=== PATIENT | female | born 1940 | race Caucasian/White ===

== ENCOUNTER → 2016-12-14 | Outpatient (CLI) | payer MEDICARE ==
[2016-12-14 08:23] LABS: Appearance,Urine Clear (Clear); Bilirubin,Urine Negative (Negative); Glucose,Urine (UA) Negative (Negative); Ketones,Urine Negative (Negative); Leukocyte Esterase,Urine Moderate (Negative); Mucus,Urine Rare /hpf; Nitrite,Urine Negative (Negative); PH, Urine 5.5 (5.0-8.0); Particle Count 4771; Protein,Urine 1+ (Negative); RBC,Urine 1 /hpf (0-5); Specific Gravity,Urine 1.016 (1.001-1.035); Squamous Epithelial Cell,Urine 2 /hpf (0-4); UA Billing (MACRO vs. MICRO) MICRO; Urobilinogen,Urine <2.0 mg/dL (<2.0); WBC,Urine 5 /hpf (0-5)
[2016-12-14 08:46] LABS: Basophils # (A) 0.1 k/uL (0-0.2); Basophils % (A) 2 %; CH 32.1; CHCM 32.6; Eosinophils # (A) 0.4 k/uL (0-0.7); Eosinophils % (A) 10 %; HDW 3.18; HGB 11.6 gm/dL (11.4-16.0); Luc % (Auto) 3; Lymphocytes # (A) 0.9 k/uL (1.0-4.8); Lymphocytes % (A) 22 %; MCH 31.9 pg (25.0-35.0); MCHC 32.2 g/dL (31.0-37.0); MCV 99.1 fL (80.0-100.0); Macrocytosis Slight; Mean Platelet Volume 6.7; Monocytes # (A) 0.3 k/uL (0-1.0); Monocytes % (A) 8 %; Neutrophils # (A) 2.2 k/uL (1.3-7.7); Neutrophils % (A) 56 %; RBC 3.64 m/uL (3.80-5.40); RDW 14.9 % (11.5-15.5); WBC 3.9 k/uL (3.8-10.6); WBC (Perox) 4.08
[2016-12-14 11:56] LABS: Calcium 9.7 mg/dL (8.4-10.2); Magnesium 1.4 mg/dL (1.6-2.3); Phosphorous 3.9 mg/dL (2.5-4.5); Potassium 4.5 mmol/L (3.5-5.1); Uric Acid 5.4 mg/dL (3.7-7.4)
== END | disposition home or self-care (01) ==
LOC: LABWHC1 07:26
PROVIDERS: ATTEND Internal Medicine Nephrology
DX: D64.9 Anemia, unspecified (principal); E55.9 Vitamin D deficiency, unspecified; E21.3 Hyperparathyroidism, unspecified; M10.9 Gout, unspecified; N18.4 Chronic kidney disease, stage 4 (severe); N39.0 Urinary tract infection, site not specified
CPT/HCPCS: 36415; 80048; 81001; 82306; 82728; 83540; 83550; 83735; 83970; 84100; 84550; 85025

== ENCOUNTER → 2017-01-10 | Outpatient (CLI) | payer MEDICARE ==
[2017-01-10 11:54] LABS: CH 32.9; CHCM 33.5; HCT 36.3 % (34.0-46.0); HDW 2.94; HGB 12.2 gm/dL (11.4-16.0); MCHC 33.5 g/dL (31.0-37.0); MCV 98.5 fL (80.0-100.0); Macrocytosis Slight; Mean Platelet Volume 6.7; RBC 3.69 m/uL (3.80-5.40); RDW 15.1 % (11.5-15.5); WBC 5.4 k/uL (3.8-10.6)
[2017-01-10 12:10] LABS: Calcium 9.6 mg/dL (8.4-10.2); Potassium 4.6 mmol/L (3.5-5.1)
== END | disposition home or self-care (01) ==
LOC: LABWHC1 11:08
PROVIDERS: ATTEND Internal Medicine Interventional Cardiology
DX: I25.10 Atherosclerotic heart disease of native coronary artery without angina pectoris (principal); I10 Essential (primary) hypertension; E11.9 Type 2 diabetes mellitus without complications
CPT/HCPCS: 36415; 80048; 85027

== ENCOUNTER 2017-01-22 15:26 | Observation (INO) | payer MEDICARE ==
[2017-01-22] MEDS ORDERED: LORazepam 0.5 MG TAB PO PRN (19:54)
[2017-01-22] MEDS ORDERED: SODIUM CHLORIDE 0.9% 1,000 ML IV SCH (20:00)
[2017-01-22] MEDS ORDERED: lamoTRIgine 100 MG TAB PO SCH (21:00)
[2017-01-22] MEDS ORDERED: ATORVASTATIN 20 MG TAB PO SCH (21:00)
[2017-01-22] MEDS: ZIPRASIDONE 40 MG CAP PO SCH (21:15)
[2017-01-22] MEDS: SERTRALINE 100 MG TAB PO SCH (21:15)
[2017-01-23 07:28] VITALS: RESP 18
[2017-01-23] MEDS ORDERED: GLIMEPIRIDE 1 MG TAB PO SCH (07:30)
[2017-01-23 08:07] LABS: Anisocytosis Slight; Basophils % (A) 0 %; CH 32.6; CHCM 32.8; Eosinophils % (A) 0 %; HDW 2.78; HGB 11.3 gm/dL (11.4-16.0); Luc # (Auto) 0.04; Luc % (Auto) 1; Lymphocytes # (A) 0.8 k/uL (1.0-4.8); Lymphocytes % (A) 10 %; MCH 32.2 pg (25.0-35.0); MCHC 32.3 g/dL (31.0-37.0); MCV 99.8 fL (80.0-100.0); Macrocytosis Slight; Monocytes # (A) 0.2 k/uL (0-1.0); Monocytes % (A) 2 %; Neutrophils # (A) 7.1 k/uL (1.3-7.7); Neutrophils % (A) 87 %; RDW 16.1 % (11.5-15.5); WBC 8.1 k/uL (3.8-10.6); WBC (Perox) 8.43
[2017-01-23] MEDS ORDERED: RX INFO: IV CONTRAST WAS GIVEN 1 EACH MISC MISCELLANE PRN (08:23)
[2017-01-23] MEDS ORDERED: IODIXANOL 320 MG/ML 100 ML INTRAARTER ONE (08:30)
[2017-01-23 08:38] LABS: Calcium 9.6 mg/dL (8.4-10.2); Potassium 4.7 mmol/L (3.5-5.1)
[2017-01-23 08:40] LABS: Glucose,Whole Blood 115 mg/dL (75-99)
[2017-01-23] MEDS ORDERED: METOPROLOL TARTRATE 12.5 MG TAB PO SCH (09:00)
[2017-01-23] MEDS ORDERED: SPIRONOLACTONE 25 MG TAB PO SCH (09:00)
[2017-01-23] MEDS ORDERED: MAGNESIUM OXIDE 400 MG TAB PO SCH (09:00)
[2017-01-23] MEDS ORDERED: ASPIRIN 81 MG CHEW PO SCH (09:00)
[2017-01-23] MEDS ORDERED: LISINOPRIL 10 MG TAB PO SCH (09:00)
[2017-01-23] MEDS ORDERED: LEVOTHYROXINE 50 MCG TAB PO SCH (09:00)
--- NOTE | 2017-01-23 09:04 | CC ---
DATE OF SERVICE: 01/23/2017 PROCEDURE: Left heart catheterization and coronary angiography. Performed by Dr. Arpita Tyler. CLINICAL INFORMATION: Mrs. Aurora Kessler is a 76-year-old lady with history of type 2 diabetes, hypertension, hyperlipidemia, recent episodes of chest pain and a positive stress test. She was advised coronary angiography, given her risk factor profile and abnormal stress test. The risks, benefits, options and rationale were explained. PROCEDURE NOTE: Under local anesthesia and strict aseptic precautions, a 6 Chinese introducer was placed in the right radial artery. Micropuncture needle technique was used. Using an Ultimate 1 catheter, I performed selective coronary angiography of both coronary arteries and also checked LV pressures with pigtail catheter. LV gram was not performed. The sheath was taken out and TR band applied as per protocol. The saturation of the fingers of the right hand was 93%. Patient received 2,500 units of heparin. She tolerated the procedure well without complications. CARDIAC CATHETERIZATION FINDINGS: The left ventricular end-diastolic pressure was about 24 mmHg and there was no gradient across aortic valve. CORONARY ANGIOGRAPHIC FINDINGS: LEFT MAIN CORONARY ARTERY: A short, patent, disease-free vessel that immediately bifurcates into LAD and circumflex. LEFT ANTERIOR DESCENDING CORONARY ARTERY: Good caliber vessel extends along the anterior wall, gives off a large size diagonal branch in the midportion. LAD runs all the way to the apex and diagonal is also free of significant disease. There is no significant disease in the LAD system. The distal LAD has minor irregularities. LEFT POSTERIOR CIRCUMFLEX CORONARY ARTERY: Technically, a nondominant vessel, fair caliber, good distribution has minor irregularities. No significant obstructive disease is noted. RIGHT CORONARY ARTERY: Dominant vessel, no significant disease, distally bifurcates into PDA which is larger and PLV which is smaller, has minor irregularities. No significant disease. LEFT VENTRICULOGRAM: This was not performed. FINAL IMPRESSION: This patient has a right dominant system. There is no significant obstructive disease. Left ventricular filling pressures are elevated. There was no gradient across aortic valve. Left ventriculogram was not performed. RECOMMENDATIONS: I am recommending continued medical therapy and will add Aldactone 25 mg daily for possible diastolic dysfunction. Continue her other medications and she will be discharged later on today. No intervention is necessary from a coronary disease standpoint, but aggressive risk factor modification was advised. This patient received conscious sedation with IV Versed and Benadryl combination for a total duration of 45 minutes. Moderate conscious sedation was provided for 45 minutes. Patient was monitored closely. This patient also had IODINE DYE allergy and was pretreated with steroids and Benadryl as per protocol.
--- NOTE | 2017-01-23 09:07 | LTR ---
January 23, 2017 RE: Caitlin Kessler Dear Dr. Allen; Thank you for the opportunity to participate in the care of Mrs. Kessler. I am pleased to report to you that she does not have any significant obstructive CAD that requires intervention. Continued medical therapy with risk factor modification is advised and she will be discharged later on today. I will follow her renal function closely. Thank you for your referral and please call for questions. With kindest regards. Sincerely yours, NATALIE TAVERAS MD
[2017-01-23] MEDS: SERTRALINE 100 MG TAB PO SCH (09:21)
[2017-01-23] MEDS: ZIPRASIDONE 40 MG CAP PO SCH (09:22)
[2017-01-23 09:44] VITALS: BMI 26.4
[2017-01-23 12:21] LABS: Glucose,Whole Blood 118 mg/dL (75-99)
[2017-01-23 16:04] VITALS: BP 115/50; PULSE 58; TEMP 97.8
[2017-01-24] MEDS ORDERED: ERGOCALCIFEROL 50,000 UNIT CAP PO SCH (12:00)
[2017-01-24] MEDS ORDERED: CALCITRIOL 0.25 MCG CAP PO SCH (12:00)
== END 2017-01-23 17:55 | disposition home or self-care (01) ==
LOC: 3SUR 17:14 → 3OBS 19:35
PROVIDERS: ADMIT Internal Medicine Interventional Cardiology; ATTEND Internal Medicine Interventional Cardiology
DX: R94.31 Abnormal electrocardiogram [ECG] [EKG] (principal); R07.9 Chest pain, unspecified; E11.9 Type 2 diabetes mellitus without complications; I10 Essential (primary) hypertension; E78.5 Hyperlipidemia, unspecified; R94.39 Abnormal result of other cardiovascular function study; Z79.82 Long term (current) use of aspirin; Z79.899 Other long term (current) drug therapy; Z79.84 Long term (current) use of oral hypoglycemic drugs; Z88.5 Allergy status to narcotic agent; Z91.041 Radiographic dye allergy status; Z82.49 Family history of ischemic heart disease and other diseases of the circulatory system; Z87.891 Personal history of nicotine dependence
CPT/HCPCS: 93458; 80048; 85025; G0378 ×2; G0379; C1769 ×2; C1894; Q9967; J1644

== ENCOUNTER → 2017-01-29 | Outpatient (CLI) | payer MEDICARE ==
[2017-01-29 15:58] LABS: Calcium 9.4 mg/dL (8.4-10.2); Potassium 4.9 mmol/L (3.5-5.1)
== END | disposition home or self-care (01) ==
LOC: LABWHC1 15:17
PROVIDERS: ATTEND Internal Medicine Interventional Cardiology
DX: E11.9 Type 2 diabetes mellitus without complications (principal); I10 Essential (primary) hypertension
CPT/HCPCS: 36415; 80048

== ENCOUNTER → 2017-04-27 | Outpatient (CLI) | payer MEDICARE ==
[2017-04-27 09:42] LABS: Basophils # (A) 0.1 k/uL (0-0.2); Basophils % (A) 2 %; CHCM 32.7; Eosinophils # (A) 0.4 k/uL (0-0.7); Eosinophils % (A) 8 %; HCT 34.7 % (34.0-46.0); HDW 2.99; HGB 11.5 gm/dL (11.4-16.0); Luc # (Auto) 0.12; Luc % (Auto) 3; Lymphocytes # (A) 1.3 k/uL (1.0-4.8); Lymphocytes % (A) 28 %; MCH 34.8 pg (25.0-35.0); MCHC 33.3 g/dL (31.0-37.0); MCV 104.6 fL (80.0-100.0); Macrocytosis Slight; Monocytes # (A) 0.2 k/uL (0-1.0); Monocytes % (A) 4 %; Neutrophils # (A) 2.6 k/uL (1.3-7.7); Neutrophils % (A) 55 %; RBC 3.32 m/uL (3.80-5.40); RDW 13.6 % (11.5-15.5); WBC 4.7 k/uL (3.8-10.6); WBC (Perox) 5.16
[2017-04-27 09:54] LABS: Appearance,Urine Clear (Clear); Bacteria,Urine Rare /hpf; Bilirubin,Urine Negative (Negative); Glucose,Urine (UA) Negative (Negative); Ketones,Urine Negative (Negative); Leukocyte Esterase,Urine Small (Negative); Mucus,Urine Rare /hpf; Nitrite,Urine Negative (Negative); PH, Urine 5.5 (5.0-8.0); Particle Count 1466; Protein,Urine Trace (Negative); RBC,Urine 1 /hpf (0-5); Specific Gravity,Urine 1.012 (1.001-1.035); Squamous Epithelial Cell,Urine 1 /hpf (0-4); UA Billing (MACRO vs. MICRO) MICRO; Urobilinogen,Urine <2.0 mg/dL (<2.0); WBC,Urine 3 /hpf (0-5)
[2017-04-27 10:18] LABS: Magnesium 1.4 mg/dL (1.6-2.3); Phosphorous 4.4 mg/dL (2.5-4.5); Potassium 5.6 mmol/L (3.5-5.1); Uric Acid 5.7 mg/dL (3.7-7.4)
== END | disposition home or self-care (01) ==
LOC: LABWHC1 08:39
PROVIDERS: ATTEND Nurse Practitioner Family
DX: N18.4 Chronic kidney disease, stage 4 (severe) (principal); E55.9 Vitamin D deficiency, unspecified; D64.9 Anemia, unspecified; E21.3 Hyperparathyroidism, unspecified; N39.0 Urinary tract infection, site not specified; M10.9 Gout, unspecified
CPT/HCPCS: 36415; 80048; 81001; 82040; 82306; 82728; 83540; 83550; 83735; 83970; 84100; 84550; 85025

== ENCOUNTER → 2017-05-08 | Outpatient (CLI) | payer MEDICARE ==
[2017-05-08 09:08] LABS: Calcium 10.2 mg/dL (8.4-10.2); Potassium 5.2 mmol/L (3.5-5.1)
== END | disposition home or self-care (01) ==
LOC: LABWHC1 07:50
PROVIDERS: ATTEND Nurse Practitioner Family
DX: E87.5 Hyperkalemia (principal); N18.3 Chronic kidney disease, stage 3 (moderate)
CPT/HCPCS: 36415; 80048

== ENCOUNTER → 2017-08-28 | Outpatient (CLI) | payer MEDICARE ==
[2017-08-28 08:30] LABS: Basophils # (A) 0.1 k/uL (0-0.2); Basophils % (A) 2 %; Eosinophils # (A) 0.5 k/uL (0-0.7); Eosinophils % (A) 8 %; HGB 12.7 gm/dL (11.4-16.0); Lymphocytes # (A) 1.9 k/uL (1.0-4.8); Lymphocytes % (A) 32 %; MCH 32.4 pg (25.0-35.0); MCHC 31.7 g/dL (31.0-37.0); Macrocytosis Slight; Mean Platelet Volume 6.7; Monocytes # (A) 0.3 k/uL (0-1.0); Monocytes % (A) 5 %; Neutrophils # (A) 3.2 k/uL (1.3-7.7); Neutrophils % (A) 52 %; Platelet Count 226 k/uL (150-450); RBC 3.92 m/uL (3.80-5.40); RDW 14.2 % (11.5-15.5); WBC 6.1 k/uL (3.8-10.6)
[2017-08-28 08:37] LABS: Appearance,Urine Clear (Clear); Bilirubin,Urine Negative (Negative); Blood,Urine Negative (Negative); Color,Urine Yellow; Glucose,Urine (UA) Negative (Negative); Ketones,Urine Negative (Negative); Leukocyte Esterase,Urine Small (Negative); Mucus,Urine Rare /hpf; Nitrite,Urine Negative (Negative); PH, Urine 5.5 (5.0-8.0); Protein,Urine Trace (Negative); RBC,Urine 1 /hpf (0-5); Specific Gravity,Urine 1.011 (1.001-1.035); Squamous Epithelial Cell,Urine 3 /hpf (0-4); Urobilinogen,Urine <2.0 mg/dL (<2.0); WBC,Urine 3 /hpf (0-5)
[2017-08-28 08:55] LABS: Albumin 4.9 g/dL (3.5-5.0); Magnesium 2.3 mg/dL (1.6-2.3); Phosphorus 3.6 mg/dL (2.5-4.5); Potassium 4.9 mmol/L (3.5-5.1); Total Bilirubin 0.5 mg/dL (0.2-1.3); Uric Acid 5.2 mg/dL (3.7-7.4)
[2017-08-28 09:09] LABS: T4, Free (Free Thyroxine) 1.14 ng/dL (0.78-2.19)
[2017-08-28 16:13] LABS: Iron Saturation 15.71 (12.00-45.00)
[2017-08-28 16:21] LABS: Vitamin D 25 Hydroxy 40.7 ng/mL (30.0-100.0)
[2017-08-28 17:38] LABS: Parathyroid Hormone Intact 169.9 pg/mL (14.0-72.0)
[2017-08-28 18:41] LABS: Hemoglobin A1C 5.2 % (4.0-6.0)
== END | disposition home or self-care (01) ==
LOC: LABWHC1 08:02
PROVIDERS: ATTEND Nurse Practitioner Family
DX: E55.9 Vitamin D deficiency, unspecified (principal); E78.5 Hyperlipidemia, unspecified; E21.3 Hyperparathyroidism, unspecified; M10.9 Gout, unspecified; N39.0 Urinary tract infection, site not specified; D63.1 Anemia in chronic kidney disease; N18.3 Chronic kidney disease, stage 3 (moderate); E11.22 Type 2 diabetes mellitus with diabetic chronic kidney disease
CPT/HCPCS: 36415; 80053; 80061; 81001; 82306; 82728; 83036; 83540; 83550; 83735; 83970; 84100; 84439; 84443; 84550; 85025

== ENCOUNTER → 2017-09-19 | Outpatient (CLI) | payer MEDICARE ==
--- NOTE | 2017-09-19 16:51 | PN ---
PROGRESS NOTE DATE OF SERVICE: 09/19/2017 77-year-old lady has been [facility] for treatment of obstructive sleep apnea-hypopnea syndrome. Patient continued to use her CPAP equipment without significant problems. [place] Sleepiness Scale today is 3. I checked her CPAP unit. CPAP pressure is 6 cm of water, usage is 26/30 nights more than 4 hours. Average usage is 6.0 hours. Leak is only 4 L/minute which is great. Apnea-hypopnea index for the last months in the range of 4, for the last night in the range of 3. MEDICATIONS: Glimepiride, Levoxyl, simvastatin, aspirin, Zoloft, Geodon, vitamin D. PHYSICAL EXAM: Patient in no distress BP 171/85, HR 90, RR 16, height 5 feet 1 inches, weight 150, BMI 28.0, temperature 98.1 oxygen saturation on room air, 96%. Oropharynx low position of soft palate. Neck Supple, no JVD. Thyroid is not palpable. LUNGS Clear to percussion and to auscultation. Good air exchange. No wheezing or rhonchi. HEART S1, S2 regular. No murmurs, gallops, or rubs. ABDOMEN: Slightly obese. Soft and nontender. Bowel sounds are present. No organomegaly appreciated. EXTREMITIES No clubbing or cyanosis. PURCHASING/RECEIVING Awake, alert, and oriented X3. Cranial nerves 2 to 7 intact. There is no fasciculation or atrophy. noted. No focal deficits observed. IMPRESSION: 1. Obstructive sleep apnea-hypopnea syndrome, mostly on control with CPAP at 6 cm of water. Patient demonstrated great compliance with treatment benefitting from treatment. 2. Hypertension. 3. Hypothyroidism. 4. Overweight. Patient lost about 16 pounds since previous visit. 5. History of bipolar. 6. Diabetes mellitus. 7. Status post bowel resection. PLAN: 1. Continue using CPAP equipment every night for the whole night. 2. Continue losing weight. 3. Sleep hygiene with regular time in bed for at least 7.5 to 8 hours. 4. No driving if feeling any sleepiness. 5. Monitoring of blood pressure. Today in the office blood pressure increased, but the patient was nervous. May need to be restarted on her medications for the blood pressure. Thank you very much for allowing me to participate in management of your patient. Sincerely, Haroon Schroeder MD, PhD, FAASM Diplomat of [place] [employer] [place] [employer] Sample Grinder [facility] [place] MMMAIL / J CARLOSN: [id number] /
== END | disposition home or self-care (01) ==
LOC: SLEEP 14:45
PROVIDERS: ATTEND Internal Medicine
DX: G47.33 Obstructive sleep apnea (adult) (pediatric) (principal); I10 Essential (primary) hypertension; F31.9 Bipolar disorder, unspecified; E03.9 Hypothyroidism, unspecified; E11.9 Type 2 diabetes mellitus without complications; E66.3 Overweight; Z99.89 Dependence on other enabling machines and devices; Z79.82 Long term (current) use of aspirin; Z79.899 Other long term (current) drug therapy; Z79.84 Long term (current) use of oral hypoglycemic drugs; Z90.49 Acquired absence of other specified parts of digestive tract; Z68.28 Body mass index [BMI] 28.0-28.9, adult

== ENCOUNTER → 2017-12-30 | Outpatient (CLI) | payer MEDICARE ==
[2017-12-30 07:32] LABS: Basophils % (A) 1 %; Eosinophils # (A) 0.2 k/uL (0-0.7); Eosinophils % (A) 4 %; HCT 32.1 % (34.0-46.0); HGB 10.6 gm/dL (11.4-16.0); Lymphocytes # (A) 1.2 k/uL (1.0-4.8); Lymphocytes % (A) 20 %; MCH 32.1 pg (25.0-35.0); MCHC 33.2 g/dL (31.0-37.0); MCV 96.8 fL (80.0-100.0); Mean Platelet Volume 7.6; Monocytes # (A) 0.2 k/uL (0-1.0); Monocytes % (A) 4 %; Neutrophils # (A) 4.2 k/uL (1.3-7.7); Neutrophils % (A) 70 %; Platelet Count 202 k/uL (150-450); RBC 3.31 m/uL (3.80-5.40)
[2017-12-30 08:08] LABS: Albumin 4.3 g/dL (3.5-5.0); Calcium 9.8 mg/dL (8.4-10.2); Magnesium 1.9 mg/dL (1.6-2.3); Potassium 4.8 mmol/L (3.5-5.1); Uric Acid 5.8 mg/dL (3.7-7.4)
[2017-12-30 11:26] LABS: Iron Saturation 12.74 (12.00-45.00)
[2017-12-30 11:31] LABS: Appearance,Urine Clear (Clear); Bacteria,Urine Rare /hpf; Bilirubin,Urine Negative (Negative); Blood,Urine Negative (Negative); Color,Urine Yellow; Glucose,Urine (UA) Negative (Negative); Ketones,Urine Negative (Negative); Leukocyte Esterase,Urine Trace (Negative); Mucus,Urine Rare /hpf; Nitrite,Urine Negative (Negative); PH, Urine 5.5 (5.0-8.0); Protein,Urine 1+ (Negative); RBC,Urine 1 /hpf (0-5); Specific Gravity,Urine 1.017 (1.001-1.035); Squamous Epithelial Cell,Urine 4 /hpf (0-4); Urobilinogen,Urine <2.0 mg/dL (<2.0); WBC,Urine 2 /hpf (0-5)
[2017-12-30 11:34] LABS: Parathyroid Hormone Intact 316.6 pg/mL (14.0-72.0)
[2017-12-30 12:01] LABS: Hemoglobin A1C 4.8 % (4.0-6.0)
== END | disposition home or self-care (01) ==
LOC: LABWHC1 07:00
PROVIDERS: ATTEND Nurse Practitioner Family
DX: N39.0 Urinary tract infection, site not specified (principal); M10.9 Gout, unspecified; N25.81 Secondary hyperparathyroidism of renal origin; E55.9 Vitamin D deficiency, unspecified; D63.1 Anemia in chronic kidney disease; E11.22 Type 2 diabetes mellitus with diabetic chronic kidney disease; N18.3 Chronic kidney disease, stage 3 (moderate); E83.42 Hypomagnesemia
CPT/HCPCS: 36415; 80048; 81001; 82040; 82306; 82728; 83036; 83540; 83550; 83735; 83970; 84100; 84550; 85025

== ENCOUNTER → 2018-01-21 | Outpatient (CLI) | payer MEDICARE ==
[2018-01-21 18:10] LABS: Albumin 4.6 g/dL (3.5-5.0); Calcium 9.4 mg/dL (8.4-10.2); Potassium 4.3 mmol/L (3.5-5.1); Total Bilirubin 0.4 mg/dL (0.2-1.3); Total Protein 6.9 g/dL (6.3-8.2)
--- NOTE | 2018-01-22 10:11 | US ---
EXAMINATION TYPE: US thyroid st tissue head/neck DATE OF EXAM: 01/21/2018 COMPARISON: NONE CLINICAL HISTORY: E21.0 PRIMARY HYPERPARATHYROIDISM. Pt states on thyroid meds x many years Difficult exam, pt breathing very labored during exam GLAND SIZE: Right Lobe: 3.5 x 1.4 x 2.1 cm Overall Parenchyma: heterogenous Left Lobe: 4.1 x 1.1 x 1.0 cm Overall Parenchyma: heterogeneous Isthmus Thickness: 0.4 cm NODULES RIGHT: # of nodules measured on right: 1 1. 0.3 X 0.2 x 0.3 cm hypoechoic solid nodule at the upper pole with poorly defined margins; This nodule is wider than tall and shows no intranodular vascularity. Prior size: No prior exam Bilateral neck scanned, no evidence of lymphadenopathy. Small nodule right, heterogeneous thyroid IMPRESSION: Exam may be limited. Subcentimeter thyroid nodule noted.
== END | disposition home or self-care (01) ==
LOC: RADUSWWP 16:19
PROVIDERS: ATTEND Internal Medicine Endocrinology, Diabetes & Metabolism
DX: E04.1 Nontoxic single thyroid nodule (principal); E21.0 Primary hyperparathyroidism
CPT/HCPCS: 36415; 76536; 80053; 83970

== ENCOUNTER 2018-01-22 12:10 | Inpatient (IN) | payer MEDICARE ==
[2018-01-22] MEDS ORDERED: IPRATROPIUM-ALBUTEROL 3 ML NEB INHALATION STA (12:51)
[2018-01-22] MEDS ORDERED: methylPREDNISolone SOD SUCCI 125 MG/2 ML VIAL IV STA (12:51)
--- NOTE | 2018-01-22 13:06 | ED ---
General Adult HPI - General Chief complaint: Shortness of Breath Stated complaint: JAZMÍN Time Seen by Provider: 01/22/18 12:20 Source: patient, EMS, RN notes reviewed Mode of arrival: EMS Limitations: no limitations - History of Present Illness Initial comments: This is a 77-year-old female presents emergency department with past medical history of renal insufficiency and asthmatic bronchitis. Patient also is a diabetic with hypertension. Patient states she was a smoker but quit about 20 years ago. Patient comes in today because for the last 3 weeks she's had difficulty breathing but she was given a steroid and antibiotic and she was feeling better but for the last week she's become more more short of breath that point where she is having hard time breathing at this point. Patient denies any fever chills but she does have a dry cough. Patient denies any chest pain or palpitations. Patient denies abdominal pain patient denies nausea vomiting diarrhea. Patient denies lightheadedness or dizziness. Patient denies any recent injury or trauma. - Related Data Home Medications Medication Instructions Recorded Confirmed Aspirin 81 mg PO DAILY 05/12/15 01/22/18 Levothyroxine Sodium [Levoxyl] 50 mcg PO DAILY 05/12/15 01/22/18 Sertraline [Zoloft] 100 mg PO BID 05/12/15 01/22/18 Simvastatin [Zocor] 40 mg PO HS 05/12/15 01/22/18 Ziprasidone [Geodon] 40 mg PO BID 05/12/15 01/22/18 lamoTRIgine 200 mg PO HS 05/12/15 01/22/18 Ergocalciferol [Vitamin D2 50,000 unit PO CHAVIRA 01/17/17 01/22/18 (DRISDOL)] Magnesium Oxide [Mag-Ox] 400 mg PO DAILY 01/17/17 01/22/18 Albuterol Inhaler [Ventolin Hfa 2 puff INHALATION RT-QID PRN 01/22/18 01/22/18 Inhaler] Previous Rx's Medication Instructions Recorded Budesonide [Pulmicort] 0.5 mg INHALATION BID #60 neb 01/24/18 Ipratropium-Albuterol Nebulize 3 ml INHALATION QID #120 neb 01/24/18 [Duoneb 0.5 mg-3 mg/3 ml Soln] Furosemide [Lasix] 20 mg PO DAILY@1800 #30 tab 01/25/18 Furosemide [Lasix] 40 mg PO DAILY #30 tab 01/25/18 Metoprolol Tartrate [Lopressor] 25 mg PO BID #60 tab 01/25/18 predniSONE 10 mg PO DAILY #30 tab 01/25/18 Allergies Allergy/AdvReac Type Severity Reaction Status Date / Time codeine Allergy Anaphylaxis Verified 01/22/18 12:41 Iodinated Contrast- Oral and Allergy Chest Pain Verified 01/22/18 12:41 IV Dye [Iodinated Contrast Media - Oral and] Iodine and Iodide Containing Allergy Anaphylaxis Verified 01/22/18 12:41 Produc Review of Systems ROS Statement: Those systems with pertinent positive or pertinent negative responses have been documented in the HPI. ROS Other: All systems not noted in ROS Statement are negative. Past Medical History Past Medical History: Asthma, Chest Pain / Angina, Diabetes Mellitus, Hyperlipidemia, Hypertension, Renal Disease, Sleep Apnea/CPAP/BIPAP, Thyroid Disorder Additional Past Medical History / Comment(s): CHF was previously charted but when asked pt if she had any cardiac problems she stated "no". Bipolar, colitis , asthma when younger, seizure disorder-last known seizure 1986. Anemia History of Any Multi-Drug Resistant Organisms: MRSA Date of last positivie culture/infection: 2007 MDRO Source:: abdomen Past Surgical History: Appendectomy, Bowel Resection, Cholecystectomy, Hernia Repair, Tonsillectomy, Tubal Ligation Additional Past Surgical History / Comment(s): salvador cataracts,abd hernia sx w/ mesh-2nd sx to removed mesh and had mrsa after 2nd sx in 2007, bowel sx d/t obstruction, Past Anesthesia/Blood Transfusion Reactions: Motion Sickness Additional Past Anesthesia/Blood Transfusion Reaction / Comment(s): past blood transfusion- no reaction Past Psychological History: Bipolar Smoking Status: Former smoker - Past Family History Father Family Medical History: Cancer Additional Family Medical History / Comment(s): lung cancer. all 11 siblings of father had some sort of cancer Mother Family Medical History: Congestive Heart Failure (CHF) Additional Family Medical History / Comment(s): aunts had bipolar depression General Exam - General Exam Comments Initial Comments: GENERAL: Patient is well-developed and well-nourished. Patient is nontoxic and well- hydrated and is in mild distress. ENT: Neck is soft and supple. No significant lymphadenopathy is noted. Oropharynx is clear. Moist mucous membranes. Neck has full range of motion without eliciting any pain. EYES: The sclera were anicteric and conjunctiva were pink and moist. Extraocular movements were intact and pupils were equal round and reactive to light. Eyelids were unremarkable. PULMONARY: Patient has some expiratory wheezing CARDIOVASCULAR: There is a regular rate and rhythm without any murmurs gallops or rubs. ABDOMEN: Soft and nontender with normal bowel sounds. No palpable organomegaly was noted. There is no palpable pulsatile mass. SKIN: Skin is clear with no lesions or rashes and otherwise unremarkable. NEUROLOGIC: Patient is alert and oriented x3. Cranial nerves II through XII are grossly intact. Motor and sensory are also intact. Normal speech, volume and content. Symmetrical smile. MUSCULOSKELETAL: Normal extremities with adequate strength and full range of motion. Leg swelling or calf tenderness LYMPHATICS: No significant lymphadenopathy is noted PSYCHIATRIC: Normal psychiatric evaluation. Normal interpersonal interactions appears functionally intact in deals appropriately with others. No signs of depression. No signs of anxiety. Limitations: no limitations Course Vital Signs 01/22/18 01/22/18 01/22/18 12:18 12:29 13:07 Temperature 98.6 F Pulse Rate 90 90 Respiratory 16 20 Rate Blood Pressure 152/71 O2 Sat by Pulse 98 Oximetry 01/22/18 01/22/18 01/22/18 13:16 15:24 15:55 Temperature 97.8 F Pulse Rate 88 92 Respiratory 18 Rate Blood Pressure 135/65 O2 Sat by Pulse 95 Oximetry 01/22/18 16:00 Temperature Pulse Rate Respiratory 20 Rate Blood Pressure O2 Sat by Pulse Oximetry Medical Decision Making - Medical Decision Making EKG shows normal sinus rhythm at 89 bpm PA interval 150 QRS is 146 Q-T intervals 424 QTC is 515. Patient's EKG shows no ST segment elevation or depression or T wave abnormalities are noted. Patient has left bundle branch block. - Lab Data Result diagrams: 01/22/18 12:34 01/25/18 06:22 Lab Results 01/22/18 01/22/18 01/22/18 Range/Units 12:34 12:34 12:34 WBC 5.3 (3.8-10.6) k/uL RBC 3.35 L (3.80-5.40) m/uL Hgb 11.0 L (11.4-16.0) gm/dL Hct 32.2 L (34.0-46.0) % MCV 96.2 (80.0-100.0) fL MCH 32.7 (25.0-35.0) pg MCHC 34.0 (31.0-37.0) g/dL RDW 14.3 (11.5-15.5) % Plt Count 211 (150-450) k/uL Neutrophils % 63 % Lymphocytes % 25 % Monocytes % 5 % Eosinophils % 3 % Basophils % 2 % Neutrophils # 3.3 (1.3-7.7) k/uL Lymphocytes # 1.3 (1.0-4.8) k/uL Monocytes # 0.3 (0-1.0) k/uL Eosinophils # 0.2 (0-0.7) k/uL Basophils # 0.1 (0-0.2) k/uL PT (9.0-12.0) sec INR (<1.2) APTT (22.0-30.0) sec Sodium 144 (137-145) mmol/L Potassium 4.1 (3.5-5.1) mmol/L Chloride 109 H (98-107) mmol/L Carbon Dioxide 20 L (22-30) mmol/L Anion Gap 15 mmol/L BUN 20 H (7-17) mg/dL Creatinine 1.62 H (0.52-1.04) mg/dL Est GFR (CKD-EPI)AfAm 36 (>60 ml/min/1.73 sqM) Est GFR (CKD-EPI)NonAf 31 (>60 ml/min/1.73 sqM) Glucose 98 (74-99) mg/dL POC Glucose (mg/dL) (75-99) mg/dL POC Glu Web Marketing Specialist ID Estimated Ave Glu mg/dL Hemoglobin A1c (4.0-6.0) % Calcium 9.4 (8.4-10.2) mg/dL Magnesium 1.6 (1.6-2.3) mg/dL Total Bilirubin 0.6 (0.2-1.3) mg/dL AST 39 H (14-36) U/L ALT 42 (9-52) U/L Alkaline Phosphatase 69 (38-126) U/L Total Creatine Kinase 114 (30-135) U/L CK-MB (CK-2) 2.5 H* (0.0-2.4) ng/mL CK-MB (CK-2) Rel Index 2.2 Troponin I 0.041 H* (0.000-0.034) ng/mL NT-Pro-B Natriuret Pep pg/mL Total Protein 6.9 (6.3-8.2) g/dL Albumin 4.6 (3.5-5.0) g/dL Wcfqa-3-Llqijjmyjwe (90 - 200) mg/dL Alpha-1-AT Interpret Alpha-1-AT Phenotype 01/22/18 01/22/18 01/22/18 Range/Units 12:34 12:34 12:38 WBC (3.8-10.6) k/uL RBC (3.80-5.40) m/uL Hgb (11.4-16.0) gm/dL Hct (34.0-46.0) % MCV (80.0-100.0) fL MCH (25.0-35.0) pg MCHC (31.0-37.0) g/dL RDW (11.5-15.5) % Plt Count (150-450) k/uL Neutrophils % % Lymphocytes % % Monocytes % % Eosinophils % % Basophils % % Neutrophils # (1.3-7.7) k/uL Lymphocytes # (1.0-4.8) k/uL Monocytes # (0-1.0) k/uL Eosinophils # (0-0.7) k/uL Basophils # (0-0.2) k/uL PT 10.6 (9.0-12.0) sec INR 1.1 (<1.2) APTT 24.4 (22.0-30.0) sec Sodium (137-145) mmol/L Potassium (3.5-5.1) mmol/L Chloride (98-107) mmol/L Carbon Dioxide (22-30) mmol/L Anion Gap mmol/L BUN (7-17) mg/dL Creatinine (0.52-1.04) mg/dL Est GFR (CKD-EPI)AfAm (>60 ml/min/1.73 sqM) Est GFR (CKD-EPI)NonAf (>60 ml/min/1.73 sqM) Glucose (74-99) mg/dL POC Glucose (mg/dL) (75-99) mg/dL POC Glu Web Marketing Specialist ID Estimated Ave Glu mg/dL 100 Hemoglobin A1c 5.1 (4.0-6.0) % Calcium (8.4-10.2) mg/dL Magnesium (1.6-2.3) mg/dL Total Bilirubin (0.2-1.3) mg/dL AST (14-36) U/L ALT (9-52) U/L Alkaline Phosphatase (38-126) U/L Total Creatine Kinase (30-135) U/L CK-MB (CK-2) (0.0-2.4) ng/mL CK-MB (CK-2) Rel Index Troponin I (0.000-0.034) ng/mL NT-Pro-B Natriuret Pep 5320 pg/mL Total Protein (6.3-8.2) g/dL Albumin (3.5-5.0) g/dL Rdmyg-3-Jbtwkvvkjxs (90 - 200) mg/dL Alpha-1-AT Interpret Alpha-1-AT Phenotype 01/22/18 01/22/18 01/22/18 Range/Units 17:01 20:29 20:45 WBC (3.8-10.6) k/uL RBC (3.80-5.40) m/uL Hgb (11.4-16.0) gm/dL Hct (34.0-46.0) % MCV (80.0-100.0) fL MCH (25.0-35.0) pg MCHC (31.0-37.0) g/dL RDW (11.5-15.5) % Plt Count (150-450) k/uL Neutrophils % % Lymphocytes % % Monocytes % % Eosinophils % % Basophils % % Neutrophils # (1.3-7.7) k/uL Lymphocytes # (1.0-4.8) k/uL Monocytes # (0-1.0) k/uL Eosinophils # (0-0.7) k/uL Basophils # (0-0.2) k/uL PT (9.0-12.0) sec INR (<1.2) APTT (22.0-30.0) sec Sodium (137-145) mmol/L Potassium (3.5-5.1) mmol/L Chloride (98-107) mmol/L Carbon Dioxide (22-30) mmol/L Anion Gap mmol/L BUN (7-17) mg/dL Creatinine (0.52-1.04) mg/dL Est GFR (CKD-EPI)AfAm (>60 ml/min/1.73 sqM) Est GFR (CKD-EPI)NonAf (>60 ml/min/1.73 sqM) Glucose (74-99) mg/dL POC Glucose (mg/dL) 156 H 166 H (75-99) mg/dL POC Glu Web Marketing Specialist Bibiana Denton Melinda [address] Glu mg/dL Hemoglobin A1c (4.0-6.0) % Calcium (8.4-10.2) mg/dL Magnesium (1.6-2.3) mg/dL Total Bilirubin (0.2-1.3) mg/dL AST (14-36) U/L ALT (9-52) U/L Alkaline Phosphatase (38-126) U/L Total Creatine Kinase (30-135) U/L CK-MB (CK-2) (0.0-2.4) ng/mL CK-MB (CK-2) Rel Index Troponin I 0.056 H* (0.000-0.034) ng/mL NT-Pro-B Natriuret Pep pg/mL Total Protein (6.3-8.2) g/dL Albumin (3.5-5.0) g/dL Igrlq-1-Opcndgtnqmn (90 - 200) mg/dL Alpha-1-AT Interpret Alpha-1-AT Phenotype 01/23/18 01/23/18 01/23/18 Range/Units 07:00 07:20 07:20 WBC (3.8-10.6) k/uL RBC (3.80-5.40) m/uL Hgb (11.4-16.0) gm/dL Hct (34.0-46.0) % MCV (80.0-100.0) fL MCH (25.0-35.0) pg MCHC (31.0-37.0) g/dL RDW (11.5-15.5) % Plt Count (150-450) k/uL Neutrophils % % Lymphocytes % % Monocytes % % Eosinophils % % Basophils % % Neutrophils # (1.3-7.7) k/uL Lymphocytes # (1.0-4.8) k/uL Monocytes # (0-1.0) k/uL Eosinophils # (0-0.7) k/uL Basophils # (0-0.2) k/uL PT (9.0-12.0) sec INR (<1.2) APTT (22.0-30.0) sec Sodium (137-145) mmol/L Potassium (3.5-5.1) mmol/L Chloride (98-107) mmol/L Carbon Dioxide (22-30) mmol/L Anion Gap mmol/L BUN (7-17) mg/dL Creatinine (0.52-1.04) mg/dL Est GFR (CKD-EPI)AfAm (>60 ml/min/1.73 sqM) Est GFR (CKD-EPI)NonAf (>60 ml/min/1.73 sqM) Glucose (74-99) mg/dL POC Glucose (mg/dL) 148 H (75-99) mg/dL POC Glu Web Marketing Specialist CIRA Osbaldo Cecelia [address] Glu mg/dL Hemoglobin A1c (4.0-6.0) % Calcium (8.4-10.2) mg/dL Magnesium (1.6-2.3) mg/dL Total Bilirubin (0.2-1.3) mg/dL AST (14-36) U/L ALT (9-52) U/L Alkaline Phosphatase (38-126) U/L Total Creatine Kinase (30-135) U/L CK-MB (CK-2) (0.0-2.4) ng/mL CK-MB (CK-2) Rel Index Troponin I 0.041 H* (0.000-0.034) ng/mL NT-Pro-B Natriuret Pep pg/mL Total Protein (6.3-8.2) g/dL Albumin (3.5-5.0) g/dL Mqpig-3-Elirnaxavhl 142 (90 - 200) mg/dL Alpha-1-AT Interpret See Below Alpha-1-AT Phenotype MM 01/23/18 01/23/18 Range/Units 07:20 11:37 WBC (3.8-10.6) k/uL RBC (3.80-5.40) m/uL Hgb (11.4-16.0) gm/dL Hct (34.0-46.0) % MCV (80.0-100.0) fL MCH (25.0-35.0) pg MCHC (31.0-37.0) g/dL RDW (11.5-15.5) % Plt Count (150-450) k/uL Neutrophils % % Lymphocytes % % Monocytes % % Eosinophils % % Basophils % % Neutrophils # (1.3-7.7) k/uL Lymphocytes # (1.0-4.8) k/uL Monocytes # (0-1.0) k/uL Eosinophils # (0-0.7) k/uL Basophils # (0-0.2) k/uL PT (9.0-12.0) sec INR (<1.2) APTT (22.0-30.0) sec Sodium (137-145) mmol/L Potassium (3.5-5.1) mmol/L Chloride (98-107) mmol/L Carbon Dioxide (22-30) mmol/L Anion Gap mmol/L BUN (7-17) mg/dL Creatinine (0.52-1.04) mg/dL Est GFR (CKD-EPI)AfAm (>60 ml/min/1.73 sqM) Est GFR (CKD-EPI)NonAf (>60 ml/min/1.73 sqM) Glucose (74-99) mg/dL POC Glucose (mg/dL) 150 H (75-99) mg/dL POC Glu Web Marketing Specialist ID Cecelia Roblero [address] Glu mg/dL Hemoglobin A1c (4.0-6.0) % Calcium (8.4-10.2) mg/dL Magnesium (1.6-2.3) mg/dL Total Bilirubin (0.2-1.3) mg/dL AST (14-36) U/L ALT (9-52) U/L Alkaline Phosphatase (38-126) U/L Total Creatine Kinase (30-135) U/L CK-MB (CK-2) (0.0-2.4) ng/mL CK-MB (CK-2) Rel Index Troponin I (0.000-0.034) ng/mL NT-Pro-B Natriuret Pep pg/mL Total Protein (6.3-8.2) g/dL Albumin (3.5-5.0) g/dL Emkis-3-Ckauiifrdwu 119.0 (90 - 200) mg/dL Alpha-1-AT Interpret Alpha-1-AT Phenotype Disposition Clinical Impression: Dyspnea, Elevated troponin Disposition: ADMITTED IP TO THIS HOSP
[2018-01-22 13:18] LABS: Basophils # (A) 0.1 k/uL (0-0.2); Basophils % (A) 2 %; Eosinophils # (A) 0.2 k/uL (0-0.7); Eosinophils % (A) 3 %; HCT 32.2 % (34.0-46.0); Lymphocytes # (A) 1.3 k/uL (1.0-4.8); Lymphocytes % (A) 25 %; MCH 32.7 pg (25.0-35.0); MCV 96.2 fL (80.0-100.0); Mean Platelet Volume 7.8; Monocytes # (A) 0.3 k/uL (0-1.0); Monocytes % (A) 5 %; Neutrophils # (A) 3.3 k/uL (1.3-7.7); Neutrophils % (A) 63 %; Platelet Count 211 k/uL (150-450); RBC 3.35 m/uL (3.80-5.40); RDW 14.3 % (11.5-15.5); WBC 5.3 k/uL (3.8-10.6)
[2018-01-22 13:26] LABS: INR 1.1 (<1.2); Partial Thromboplastin Time 24.4 sec (22.0-30.0); Prothrombin Time 10.6 sec (9.0-12.0)
[2018-01-22 13:37] LABS: Albumin 4.6 g/dL (3.5-5.0); Calcium 9.4 mg/dL (8.4-10.2); Magnesium 1.6 mg/dL (1.6-2.3); Potassium 4.1 mmol/L (3.5-5.1); Total Bilirubin 0.6 mg/dL (0.2-1.3); Total Protein 6.9 g/dL (6.3-8.2)
--- NOTE | 2018-01-22 13:37 | XR ---
EXAMINATION TYPE: XR chest 2V DATE OF EXAM: 01/22/2018 COMPARISON: NONE HISTORY: Shortness of breath TECHNIQUE: Frontal and lateral views of the chest are obtained. FINDINGS: Scattered senescent parenchymal changes noted. Hyperinflation compatible with COPD. No evidence for infiltrate. No evidence for atelectasis. Severe cardiomegaly without evidence for overt failure. Mediastinal structures are stable and grossly unremarkable. No evidence for hilar prominence. Degenerative changes dorsal spine. IMPRESSION: 1. No evidence for acute pulmonary disease.
[2018-01-22 14:11] LABS: Creatine Kinase MB 2.5 ng/mL (0.0-2.4); Troponin I 0.041 ng/mL (0.000-0.034)
[2018-01-22] MEDS ORDERED: IPRATROPIUM-ALBUTEROL 3 ML NEB INHALATION PRN (14:58)
[2018-01-22 17:05] LABS: Glucose,Whole Blood 156 mg/dL (75-99)
[2018-01-22] MEDS: INSULIN ASPART 100 UNIT/ML 1 ML 10 ML VIAL SQ SCH ×2 (18:03→21:57)
[2018-01-22] MEDS: methylPREDNISolone SOD SUCCI 125 MG/2 ML VIAL IV SCH ×2 (19:53→23:37)
[2018-01-22 20:46] LABS: Glucose,Whole Blood 166 mg/dL (75-99)
[2018-01-22] MEDS: SODIUM CHLORIDE 0.9% 1,000 ML IV SCH (21:44)
[2018-01-22] MEDS: ZIPRASIDONE 40 MG CAP PO SCH (21:46)
[2018-01-22] MEDS: ATORVASTATIN 20 MG TAB PO SCH (21:46)
[2018-01-22] MEDS: HEPARIN SODIUM,PORCINE 5,000 UNIT/ML 1 ML VIAL SQ SCH (21:46)
[2018-01-22] MEDS: SERTRALINE 100 MG TAB PO SCH (21:46)
[2018-01-22] MEDS: lamoTRIgine 100 MG TAB PO SCH (21:46)
[2018-01-23 05:10] LABS: Hemoglobin A1C 5.1 % (4.0-6.0)
[2018-01-23] MEDS: methylPREDNISolone SOD SUCCI 125 MG/2 ML VIAL IV SCH ×4 (05:56→22:41)
[2018-01-23] MEDS: LEVOTHYROXINE 50 MCG TAB PO SCH (06:54)
[2018-01-23 07:05] LABS: Glucose,Whole Blood 148 mg/dL (75-99)
[2018-01-23] MEDS: SERTRALINE 100 MG TAB PO SCH ×2 (08:19→22:50)
[2018-01-23] MEDS: GLIMEPIRIDE 1 MG TAB PO SCH (08:19)
[2018-01-23] MEDS: ZIPRASIDONE 40 MG CAP PO SCH ×2 (08:19→22:41)
--- NOTE | 2018-01-23 08:19 | ECHOF ---
Referral Reason:Dyspnea MEASUREMENTS -------- HEIGHT: 157.5 cm WEIGHT: 68.0 kg BP: 152/71 RVIDd: 3.0 cm (< 3.3) IVSd: 1.1 cm (0.6 - 1.1) LVIDd: 5.9 cm (3.9 - 5.3) LVPWd: 1.1 cm (0.6 - 1.1) IVSs: 1.3 cm LVIDs: 4.7 cm LVPWs: 1.3 cm LAESV Index (A-L): 62.06 ml/m Ao Diam: 2.9 cm (2.0 - 3.7) AV Cusp: 1.7 cm (1.5 - 2.6) LA Diam: 4.6 cm (2.7 - 3.8) EPSS: 1.6 cm MV E Fox: 1.63 m/s MV DecT: 209 ms MV A Fox: 0.56 m/s MV E/A Ratio: 2.90 RAP: 5.00 mmHg RVSP: 49.48 mmHg %FS: 17.92 % EDV(Teich): 135.29 ml EF(Teich): 36.92 % ESV(Teich): 85.34 ml IVSd: 1.23 cm (0.6 - 1.1) IVSs: 1.41 cm LVIDd: 5.30 cm (3.9 - 5.3) LVIDs: 4.35 cm LVPWd: 1.26 cm (0.6 - 1.1) LVPWs: 1.50 cm MV EF SLOPE: 71.73 mm/s (70 - 150) MV EXCURSION: 1.44 cm (> 18.000) SV(Teich): 49.95 ml FINDINGS -------- Sinus rhythm. BBB This was a technically good study. The left ventricle is moderately dilated. There is borderline concentric left ventricular hypertrop hy. There is severe global hypokinesis of LV . Overall left ventricular systolic function is mode rate-severely impaired with, an EF between 30 - 35 %. The right ventricle is normal in size and function. LA is severely dilated >40 ml/m2 The right atrium is markedly enlarged. Possible collapse of right atrial freewall. There is mild aortic valve sclerosis. The mitral valve leaflets are mildly thickened. Severe mitral regurgitation is present. Moderate tricuspid regurgitation present. There is mild pulmonary hypertension. The right ventric ular systolic pressure, as measured by Doppler, is 49.48mmHg. Trace/mild (physiologic) pulmonic regurgitation. The aortic root size is normal. Normal inferior vena cava with normal inspiratory collapse consistent with estimated right atrial pre ssure of 5 mmHg. There is a moderate, generalized pericardial effusion present. CONCLUSIONS -------- 1. Sinus rhythm. 2. BBB 3. This was a technically good study. 4. The left ventricle is moderately dilated. 5. There is borderline concentric left ventricular hypertrophy. 6. There is severe global hypokinesis of LV . 7. Overall left ventricular systolic function is moderate-severely impaired with, an EF between 30 - 35 %. 8. LA is severely dilated >40 ml/m2 9. The right atrium is markedly enlarged. 10. Possible collapse of right atrial freewall. 11. There is mild aortic valve sclerosis. 12. The mitral valve leaflets are mildly thickened. 13. Severe mitral regurgitation is present. 14. Moderate tricuspid regurgitation present. 15. There is mild pulmonary hypertension. 16. Trace/mild (physiologic) pulmonic regurgitation. 17. The aortic root size is normal. 18. There is a moderate, generalized pericardial effusion present. [employer]: Cain Cunningham RDCS
[2018-01-23] MEDS: ASPIRIN 81 MG PO SCH (08:20)
[2018-01-23] MEDS: MAGNESIUM OXIDE 400 MG TAB PO SCH (08:20)
[2018-01-23] MEDS: INSULIN ASPART 100 UNIT/ML 1 ML 10 ML VIAL SQ SCH ×4 (08:21→22:45)
[2018-01-23] MEDS: HEPARIN SODIUM,PORCINE 5,000 UNIT/ML 1 ML VIAL SQ SCH ×2 (08:21→22:39)
[2018-01-23] MEDS: SODIUM CHLORIDE 0.9% 1,000 ML IV SCH (08:24)
[2018-01-23] MEDS: FUROSEMIDE 10 MG/ML 4 ML VIAL IV SCH ×2 (10:57→22:39)
[2018-01-23] MEDS: METOPROLOL TARTRATE 25 MG TAB PO SCH ×2 (10:58→22:47)
--- NOTE | 2018-01-23 11:42 | P.CRDCN ---
History of Present Illness History of present illness: Mrs. Kessler is a pleasant 77-year-old female past medical history significant for hypertension, dyslipidemia, chronic kidney disease, diabetes mellitus, asthma, hypothyroidism and diastolic dysfunction. She follows with Dr. MIKE Tyler in the office. We have been asked to see her in consultation for shortness of breath. She states earlier this month she started having increased shortness of breath with a dry cough. She saw her PCP and was diagnosed with bronchial asthma and started on steroids and zithromax. She felt as though her symptoms improved initially. However, starting last Saturday she started feeling increasingly short of breath again. Her shortness of breath was worse with mild exertion and at rest at times. She denies chest pain, palpitations, nausea, vomiting, dizziness or diaphoresis. She underwent coronary angiography 12/2016 electively after having an abnormal perfusion study in the office. The catheterization revealed no significant obstructive disease with evidence of diastolic dysfunction with LVEDP 24 mmHg. No LV gram was performed at that time. Aldactone was added to her daily regimen. However, she has chronic kidney disease and follows with Dr. Scott and the aldactone has been discontinued. Most recent echocardiogram performed 2014 reveals preserved LV systolic function with EF 50%, mild-moderate MR and mild TR. Echocardiogram repeated on this admission reveals sever global hypokinesia, moderate-severe LV impairment with EF 30-35%, severely dilated LA, makedly enlarged RA, possible collapse of right atrial freewall, mild aortic valve sclerosis with no stenosis, mildly thickend mitral valve, severe mitral regurgitation, moderate triscuspid regurgitation, mild pulmonary hypertension with RVSP 49.48 mmHg. EKG on arrival reveals sinus mechanism with left bundle branch block. Heart rate is 89. Chest xray is negative for an acute cardiopulmonary process with severe cardiomyopathy, scattered parenchymal changes and hyperinflation. No overt heart failure. Laboratory data reviewed, hgb 11.0, plt 211, sodium 144, potassium 4.1, creatinine 1.62 GFR 31, pro-BNP 5320, troponin levels 0.041, 0.056 and 0.041. Current cardiac medications include simvastatin 40 mg daily and aspirin 81 mg daily. She also takes albuterol, vitamin D, levothyroxine, magnesium supplementation, geodon and lamictal. Review of Systems At the time of my exam: CONSTITUTIONAL: Denies fever. Denies chills. EYES: Denies blurred vision. Denies vision changes. Denies eye pain. EARS, NOSE, MOUTH & THROAT: Denies headache. Denies sore throat. Denies ear pain. CARDIOVASCULAR: Denies chest pain. Complains of shortness of breath. Denies orthopnea. Denies PND. Denies palpitations. RESPIRATORY: Complains of dry cough. GASTROINTESTINAL: Denies abdominal pain. Denies diarrhea. Denies constipation. Denies nausea. Denies vomiting. MUSCULOSKELETAL: Denies myalgias. INTEGUMENTARY: Denies pruitis. Denies rash. NEUROLOGIC: Denies numbness. Denies tingling. Denies weakness. PSYCHIATRIC: Denies anxiety. Denies depression. ENDOCRINE: Denies fatigue. Denies weight change. Denies polydipsia. Denies polyurina. GENITOURINARY: Denies burning, hematuria or urgency with micturation. HEMATOLOGIC: Denies history of anemia. Denies bleeding. Past Medical History Past Medical History: Asthma, Chest Pain / Angina, Diabetes Mellitus, Hyperlipidemia, Hypertension, Renal Disease, Sleep Apnea/CPAP/BIPAP, Thyroid Disorder Additional Past Medical History / Comment(s): Bipolar, colitis, asthma when younger, seizure disorder-last known seizure 1986, client unsure if she has CHF. Anemia. stage 4 kidney disease History of Any Multi-Drug Resistant Organisms: MRSA Date of last positivie culture/infection: 2007 MDRO Source:: abdomen Past Surgical History: Appendectomy, Bowel Resection, Cholecystectomy, Hernia Repair, Tonsillectomy, Tubal Ligation Additional Past Surgical History / Comment(s): salvador cataracts,abd hernia sx w/ mesh-2nd sx to removed mesh and had mrsa after 2nd sx in 2007, bowel sx d/t obstruction, Past Anesthesia/Blood Transfusion Reactions: Motion Sickness Additional Past Anesthesia/Blood Transfusion Reaction / Comment(s): past blood transfusion- no reaction Past Psychological History: Bipolar Additional Psychological History / Comment(s): pt's spouse in sep 2016. lives alone in 2 story home but stays on first level.. has 2-3 porch steps to navigate. 1 pet dog. no outside servoces but familt helps pt out when needed. has a cpap machine. Smoking Status: Former smoker Past Alcohol Use History: None Reported Additional Past Alcohol Use History / Comment(s): SMOKED AGE 1960 - TO 1999, 1 PPD Past Drug Use History: None Reported - Past Family History Father Family Medical History: Cancer Additional Family Medical History / Comment(s): lung cancer. all 11 siblings of father had some sort of cancer Mother Family Medical History: Congestive Heart Failure (CHF) Additional Family Medical History / Comment(s): aunts had bipolar depression Medications and Allergies Home Medications Medication Instructions Recorded Confirmed Type Aspirin 81 mg PO DAILY 05/12/15 01/22/18 History Glimepiride [Amaryl] 1 mg PO AC-BRKFST 05/12/15 01/22/18 History Levothyroxine Sodium [Levoxyl] 50 mcg PO DAILY 05/12/15 01/22/18 History Sertraline [Zoloft] 100 mg PO BID 05/12/15 01/22/18 History Simvastatin [Zocor] 40 mg PO HS 05/12/15 01/22/18 History Ziprasidone [Geodon] 40 mg PO BID 05/12/15 01/22/18 History lamoTRIgine 200 mg PO HS 05/12/15 01/22/18 History Ergocalciferol [Vitamin D2] 50,000 unit PO CHAVIRA 01/17/17 01/22/18 History Magnesium Oxide [Mag-Ox] 400 mg PO DAILY 01/17/17 01/22/18 History Albuterol Inhaler [Ventolin Hfa 2 puff INHALATION RT-QID PRN 01/22/18 01/22/18 History Inhaler] Allergies Allergy/AdvReac Type Severity Reaction Status Date / Time codeine Allergy Anaphylaxis Verified 01/22/18 12:41 Iodinated Contrast- Oral and Allergy Chest Pain Verified 01/22/18 12:41 IV Dye [Iodinated Contrast Media - Oral and] Iodine and Iodide Containing Allergy Anaphylaxis Verified 01/22/18 12:41 Produc Physical Exam Vitals: Vital Signs Temp Pulse Pulse Resp BP BP BP 01/23/18 07:09 80 01/23/18 06:59 80 01/23/18 06:10 97.3 F L 74 20 111/66 01/22/18 22:35 97.4 F L 76 22 110/57 01/22/18 16:36 98.8 F 92 17 130/75 01/22/18 16:00 20 01/22/18 15:55 97.8 F 01/22/18 15:24 92 18 135/65 01/22/18 13:16 88 01/22/18 13:07 90 01/22/18 12:29 20 01/22/18 12:18 98.6 F 90 16 152/71 Pulse Ox 01/23/18 07:09 01/23/18 06:59 01/23/18 06:10 98 01/22/18 22:35 97 01/22/18 16:36 97 01/22/18 16:00 01/22/18 15:55 01/22/18 15:24 95 01/22/18 13:16 01/22/18 13:07 01/22/18 12:29 01/22/18 12:18 98 Intake and Output 01/22/18 01/23/18 01/23/18 22:59 06:59 14:59 Other: Voiding Method Toilet # Voids 1 2 2 Weight 68.039 kg Blood pressure 111/66 heart rate 74 afebrile maintaining oxygen saturation on nasal cannula 2 L GENERAL: This is a 77-year-old occasion female in mild respiratory distress at the time of my examination. HEENT: Head is atraumatic, normocephalic. Pupils are equal, round. Sclerae anicteric. Conjunctivae are clear. Mucous membranes of the mouth are moist. Neck is supple. There is jugular venous distention approximately 1cm. No carotid bruit is heard. LUNGS: Expiratory wheezes, no rales or rhonchi, diminished bilaterally. No chest wall tenderness is noted on palpation or with deep breathing. HEART: Regular rate and rhythm with holosystolic murmur at he apex, no rubs or gallops. S1 and S2 heard. ABDOMEN: Soft, nontender. Bowel sounds are heard. No organomegaly noted. EXTREMITIES: No evidence of peripheral edema and no calf tenderness noted. VASCULAR: Radial and dorsalis pedis pulses palpated, no evidence of clubbing. NEUROLOGIC: Patient is awake, alert and oriented x3. Results 01/22/18 12:34 01/22/18 12:34 Cardiac Enzymes 01/22/18 01/22/18 01/22/18 Range/Units 12:34 12:34 20:29 AST 39 H (14-36) U/L CK-MB (CK-2) 2.5 H* (0.0-2.4) ng/mL Troponin I 0.041 H* 0.056 H* (0.000-0.034) ng/mL 01/23/18 Range/Units 07:20 AST (14-36) U/L CK-MB (CK-2) (0.0-2.4) ng/mL Troponin I 0.041 H* (0.000-0.034) ng/mL Coagulation 01/22/18 Range/Units 12:34 PT 10.6 (9.0-12.0) sec APTT 24.4 (22.0-30.0) sec CBC 01/22/18 Range/Units 12:34 WBC 5.3 (3.8-10.6) k/uL RBC 3.35 L (3.80-5.40) m/uL Hgb 11.0 L (11.4-16.0) gm/dL Hct 32.2 L (34.0-46.0) % Plt Count 211 (150-450) k/uL Comprehensive Metabolic Panel 01/22/18 Range/Units 12:34 Sodium 144 (137-145) mmol/L Potassium 4.1 (3.5-5.1) mmol/L Chloride 109 H (98-107) mmol/L Carbon Dioxide 20 L (22-30) mmol/L BUN 20 H (7-17) mg/dL Creatinine 1.62 H (0.52-1.04) mg/dL Glucose 98 (74-99) mg/dL Calcium 9.4 (8.4-10.2) mg/dL AST 39 H (14-36) U/L ALT 42 (9-52) U/L Alkaline Phosphatase 69 (38-126) U/L Total Protein 6.9 (6.3-8.2) g/dL Albumin 4.6 (3.5-5.0) g/dL Current Medications Generic Name Dose Route Start Last Admin Trade Name Freq PRN Reason Stop Dose Admin Albuterol/Ipratropium 3 ml 01/22/18 14:58 01/23/18 06:59 Duoneb 0.5 Mg-3 Mg/3 Ml Soln INHALATION 3 ml RT-Q4H PRN Administration Shortness Of Breath Or Wheezing Aspirin 81 mg 01/23/18 09:00 01/23/18 08:20 Aspirin PO 81 mg DAILY GELA Administration Atorvastatin Calcium 20 mg 01/22/18 21:00 01/22/18 21:46 Lipitor PO 20 mg HS GELA Administration Furosemide 40 mg 01/23/18 09:00 Lasix IV Q12HR [facility] Glimepiride 1 mg 01/23/18 07:30 01/23/18 08:19 Amaryl PO 1 mg AC-BRKFST GELA Administration Heparin Sodium (Porcine) 5,000 unit 01/22/18 21:00 01/23/18 08:21 Heparin SQ 5,000 unit Q12HR GELA Administration Insulin Aspart 0 unit 01/22/18 17:30 01/23/18 08:21 Novolog SQ 2 unit ACHS [facility] Administration Protocol Lamotrigine 200 mg 01/22/18 21:00 01/22/18 21:46 Lamictal PO 200 mg HS GELA Administration Levothyroxine Sodium 50 mcg 01/23/18 06:30 01/23/18 06:54 Synthroid PO 50 mcg DAILY@0630 GELA Administration Magnesium Oxide 400 mg 01/23/18 09:00 01/23/18 08:20 Mag-Ox PO 400 mg DAILY [facility] Administration Methylprednisolone Sodium Succinate 60 mg 01/22/18 18:00 01/23/18 05:56 Solu-Medrol IV 60 mg Q6HR [facility] Administration Metoprolol Tartrate 25 mg 01/23/18 09:00 Lopressor PO BID [facility] Sertraline HCl 100 mg 01/22/18 21:00 01/23/18 08:19 Zoloft PO 100 mg BID GELA Administration Ziprasidone 40 mg 01/22/18 21:00 01/23/18 08:19 Geodon PO 40 mg BID [facility] Administration Intake and Output 01/22/18 01/23/18 01/23/18 22:59 06:59 14:59 Other: Voiding Method Toilet # Voids 1 2 2 Weight 68.039 kg Patient Weight 01/24/18 06:59 Weight 68.039 kg 01/22/18 12:34 01/22/18 12:34 Assessment and Plan Assessment: ASSESSMENT 1. New onset systolic heart failure secondary to severe mitral regurgitation, ejection fraction 30-35%. 2. Severe mitral regurgitation 3. Moderate pulmonary hypertension, RVSP 49 mmHg 4. Dyslipidemia, maintained on simvastatin 5. Chronic kidney disease, GFR 31. Stage 3. 6. Diabetes mellitus 7. History of hypertension, not currently on an medical therapy with controlled blood pressure PLAN Apply electronic device monitor. Add small dose of beta abdoul, lopressor 25 mg BID. Hold on KEKE/ARB secondary to renal function. Diurese with IV lasix 40 mg BID. Continue aspirin and atorvastatin as previously ordered. Follow renal function and electrolytes closely with daily BMP. Strict intake and output for accurate diuresis. Daily weights. Patient should be transferred to [facility] for closer cardiac monitoring. Further recommendations to follow based on clinical course. Thank you kindly for this consultation. Nurse Practitioner note has been reviewed, I agree with a documented findings and plan of care. Patient was seen and examined.
[2018-01-23 11:49] LABS: Glucose,Whole Blood 150 mg/dL (75-99)
[2018-01-23] MEDS ORDERED: ALBUTEROL INHALER 60 PUFF/8 GM INHALER INHALATION PRN (12:41)
--- NOTE | 2018-01-23 12:44 | P.HPIM ---
History of Present Illness H&P Date: 01/23/18 Chief Complaint: SOB 77-year-old female who presented to the emergency room with a chief complaint of shortness of breath. Patient states she was seen by her primary care physician, Dr. Allen, approximately one month ago for shortness of breath and was prescribed a steroid pack and azithromycin. She initially saw some improvement in her shortness of breath but states over the last week her shortness of breath has progressively gotten worse. She does report an occasional dry cough but denies sputum production. She denies chest pain or pressure. Denies nausea or vomiting. Denies lightheadedness or dizziness. Denies fever or chills. The patient has a history of asthma, diabetes mellitus, hyperlipidemia, hypertension, chronic renal disease, and sleep apnea. She is a former cigarette smoker with a [id number] history. She states she does not see a general office worker outpatient. Chest x-ray: Negative for an acute pulmonary process. Hyperinflation compatible with COPD. No evidence for infiltrates or atelectasis. Severe cardiomegaly without evidence of overt failure. Echocardiogram: Severe global hypokinesis of LV, Ejection fraction between 30 and 35%, severely dilated LA, severe mitral regurgitation, moderate tricuspid regurgitation, mild pulmonary hypertension, moderate pericardial effusion Laboratory data: WBC 5.3. Hemoglobin 11.0. Platelet count 211. Sodium 144. Potassium 4.1. BUN 20. Creatinine 1.62. GFR 31. Glucose 98. BNP 5320 Troponin: 0.041, 0.056, 0.041 The patient was admitted to the hospital under the care of Dr. Allen. Consultations were placed to cardiology. Review of Systems Those systems with pertinent positive or pertinent negative responses have been documented in the HPI Past Medical History Past Medical History: Asthma, Chest Pain / Angina, Diabetes Mellitus, Hyperlipidemia, Hypertension, Renal Disease, Sleep Apnea/CPAP/BIPAP, Thyroid Disorder Additional Past Medical History / Comment(s): Bipolar, colitis, asthma when younger, seizure disorder-last known seizure 1986, client unsure if she has CHF. Anemia. stage 4 kidney disease History of Any Multi-Drug Resistant Organisms: MRSA Date of last positivie culture/infection: 2007 MDRO Source:: abdomen Past Surgical History: Appendectomy, Bowel Resection, Cholecystectomy, Hernia Repair, Tonsillectomy, Tubal Ligation Additional Past Surgical History / Comment(s): salvador cataracts,abd hernia sx w/ mesh-2nd sx to removed mesh and had mrsa after 2nd sx in 2007, bowel sx d/t obstruction, Past Anesthesia/Blood Transfusion Reactions: Motion Sickness Additional Past Anesthesia/Blood Transfusion Reaction / Comment(s): past blood transfusion- no reaction Past Psychological History: Bipolar Additional Psychological History / Comment(s): pt's spouse in sep 2016. lives alone in 2 story home but stays on first level.. has 2-3 porch steps to navigate. 1 pet dog. no outside servoces but familt helps pt out when needed. has a cpap machine. Smoking Status: Former smoker Past Alcohol Use History: None Reported Additional Past Alcohol Use History / Comment(s): SMOKED AGE 1960 - TO 2000, 1 PPD Past Drug Use History: None Reported - Past Family History Father Family Medical History: Cancer Additional Family Medical History / Comment(s): lung cancer. all 11 siblings of father had some sort of cancer Mother Family Medical History: Congestive Heart Failure (CHF) Additional Family Medical History / Comment(s): aunts had bipolar depression Medications and Allergies Home Medications Medication Instructions Recorded Confirmed Type Aspirin 81 mg PO DAILY 05/12/15 01/22/18 History Glimepiride [Amaryl] 1 mg PO AC-BRKFST 05/12/15 01/22/18 History Levothyroxine Sodium [Levoxyl] 50 mcg PO DAILY 05/12/15 01/22/18 History Sertraline [Zoloft] 100 mg PO BID 05/12/15 01/22/18 History Simvastatin [Zocor] 40 mg PO HS 05/12/15 01/22/18 History Ziprasidone [Geodon] 40 mg PO BID 05/12/15 01/22/18 History lamoTRIgine 200 mg PO HS 05/12/15 01/22/18 History Ergocalciferol [Vitamin D2] 50,000 unit PO CHAVIRA 01/17/17 01/22/18 History Magnesium Oxide [Mag-Ox] 400 mg PO DAILY 01/17/17 01/22/18 History Albuterol Inhaler [Ventolin Hfa 2 puff INHALATION RT-QID PRN 01/22/18 01/22/18 History Inhaler] Allergies Allergy/AdvReac Type Severity Reaction Status Date / Time codeine Allergy Anaphylaxis Verified 01/22/18 12:41 Iodinated Contrast- Oral and Allergy Chest Pain Verified 01/22/18 12:41 IV Dye [Iodinated Contrast Media - Oral and] Iodine and Iodide Containing Allergy Anaphylaxis Verified 01/22/18 12:41 Produc Physical Exam Vitals: Vital Signs Temp Pulse Pulse Resp BP BP BP 01/23/18 07:09 80 01/23/18 06:59 80 01/23/18 06:10 97.3 F L 74 20 111/66 01/22/18 22:35 97.4 F L 76 22 110/57 01/22/18 16:36 98.8 F 92 17 130/75 01/22/18 16:00 20 01/22/18 15:55 97.8 F 01/22/18 15:24 92 18 135/65 01/22/18 13:16 88 01/22/18 13:07 90 01/22/18 12:29 20 01/22/18 12:18 98.6 F 90 16 152/71 Pulse Ox 01/23/18 07:09 01/23/18 06:59 01/23/18 06:10 98 01/22/18 22:35 97 01/22/18 16:36 97 01/22/18 16:00 01/22/18 15:55 01/22/18 15:24 95 01/22/18 13:16 01/22/18 13:07 01/22/18 12:29 01/22/18 12:18 98 Intake and Output 01/22/18 01/23/18 01/23/18 22:59 06:59 14:59 Output Total 300 Balance -300 Output: Urine 300 Other: Voiding Method Toilet Toilet # Voids 1 2 2 Weight 69.2 kg GENERAL: This is a 77-year-old female in no apparent distress at the time of examination. Pleasant and cooperative. HEENT: Head is atraumatic, normocephalic. Pupils are equal, round, and reactive to light. Sclerae anicteric. Conjunctivae are clear. Mucus membranes of the mouth are moist. Neck is supple. RESPIRATORY: Inspiratory and expiratory wheezing noted throughout. No rales auscultated. No use of accessory muscles. Patient maintaining oxygen saturation greater than 92% on 2 L nasal cannula. No chest wall tenderness is noted on palpation or with deep breathing. CARDIOVASCULAR: Regular rate and rhythm. S1 and S2 noted. Systolic murmur auscultated. Mild JVD noted. No S3 or S4 noted. GASTROINTESTINAL: No distention noted. Abdomen soft and round. Normal active bowel sounds auscultated x 4 quadrants. No pain or tenderness noted upon palpation. INTEGUMENTARY: No cyanosis. No jaundice. No rashes noted. No cellulitis noted. EXTREMITIES: 2+ peripheral pulses. No evidence of peripheral edema. No calf tenderness noted. NEUROLOGIC: Cranial nerves II-XII intact. PSYCHIATRIC: Awake, alert, and oriented X 3. Appropriate affect. Intact judgement and insight. Results CBC & Chem 7: 01/22/18 12:34 01/22/18 12:34 Labs: Abnormal Lab Results - Last 24 Hours (Table) 01/22/18 01/22/18 01/22/18 Range/Units 12:34 12:34 12:34 RBC 3.35 L (3.80-5.40) m/uL Hgb 11.0 L (11.4-16.0) gm/dL Hct 32.2 L (34.0-46.0) % Chloride 109 H (98-107) mmol/L Carbon Dioxide 20 L (22-30) mmol/L BUN 20 H (7-17) mg/dL Creatinine 1.62 H (0.52-1.04) mg/dL POC Glucose (mg/dL) (75-99) mg/dL AST 39 H (14-36) U/L CK-MB (CK-2) 2.5 H* (0.0-2.4) ng/mL Troponin I 0.041 H* (0.000-0.034) ng/mL 01/22/18 01/22/18 01/22/18 Range/Units 17:01 20:29 20:45 RBC (3.80-5.40) m/uL Hgb (11.4-16.0) gm/dL Hct (34.0-46.0) % Chloride (98-107) mmol/L Carbon Dioxide (22-30) mmol/L BUN (7-17) mg/dL Creatinine (0.52-1.04) mg/dL POC Glucose (mg/dL) 156 H 166 H (75-99) mg/dL AST (14-36) U/L CK-MB (CK-2) (0.0-2.4) ng/mL Troponin I 0.056 H* (0.000-0.034) ng/mL 01/23/18 01/23/18 Range/Units 07:00 07:20 RBC (3.80-5.40) m/uL Hgb (11.4-16.0) gm/dL Hct (34.0-46.0) % Chloride (98-107) mmol/L Carbon Dioxide (22-30) mmol/L BUN (7-17) mg/dL Creatinine (0.52-1.04) mg/dL POC Glucose (mg/dL) 148 H (75-99) mg/dL AST (14-36) U/L CK-MB (CK-2) (0.0-2.4) ng/mL Troponin I 0.041 H* (0.000-0.034) ng/mL Thrombosis Risk Factor Assmnt - Choose All That Apply Any of the Below Risk Factors Present?: No Assessment and Plan Plan: ASSESSMENT: Acute exacerbation of chronic obstructive pulmonary disease Acute systolic congestive heart failure, BNP 5320, EF 30-35% Severe mitral regurgitation Moderate pericardial effusion, visualized on echocardiogram Pulmonary hypertension, RVSP 49.48 Diabetes mellitus, type II, hemoglobin A1c 5.1% Chronic kidney disease, stage III, GFR 31 on admission Hyperlipidemia Hypertension History of nicotine dependence, patient is a former cigarette smoker with a 40 - pack-year history History of abdominal surgery secondary to obstruction with subsequent MRSA infection, 2007 History of bipolar disorder PLAN: Case discussed with cardiology [employer]. Agree with IV Lasix 40 mg every 12 hours. Cardiology recommends transferring patient to selective care unit with telemetry for closer monitoring, which medicine also agrees with. Daily weights and accurate I&O Discontinue IV fluids Continue IV steroids: 60 mg IV every 6 hours DuoNeb nebulizer treatments QID and PRN Will consult pulmonary to evaluate patient as patient has COPD and 40 pack year history. Patient does not see a general office worker outpatient. Will defer nephrology consult at this time. We will monitor renal function. If renal function begins to decline, will consult nephrology Home meds as appropriate Monitor labs GI prophylaxis: Protonix 40 mg PO Daily DVT prophylaxis: Heparin 5000 units subcu every 12 hours Monitor vital signs and address as appropriate Discharge planning: Patient to return home when stable Further recommendations pending patient's course Nurse practitioner note has been reviewed by physician. Signing provider agrees with the documented findings, assessment, and plan of care.
--- NOTE | 2018-01-23 13:21 | XR ---
EXAMINATION TYPE: XR chest 2V DATE OF EXAM: 01/23/2018 COMPARISON: 01/22/2018 HISTORY: Shortness of breath TECHNIQUE: Frontal and lateral views of the chest are obtained. FINDINGS: There is no focal air space opacity, pleural effusion, or pneumothorax seen. Again there i s marked cardiomegaly similar to the prior. Pericardial effusion could be considered. The osseous s tructures are intact. Cholecystectomy clips are noted within the right upper quadrant. Extensive calc ific atheromatous changes are seen of the aorta. Mild multilevel degenerative changes of the visualiz ed thoracolumbar spine. IMPRESSION: No acute pulmonary process. Marked cardiomegaly is similar to prior, however pericardial effusion should be considered.
--- NOTE | 2018-01-23 14:52 | P.CNPUL ---
History of Present Illness Consult date: 01/23/18 Requesting physician: Luis E Hemphill Reason for consult: COPD Chief complaint: shortness of breath History of present illness: This is a 77-year-old female patient being seen examined and evaluated today for consultation. This patient came in to the [facility] emergency room with complaints of shortness of breath that had been ongoing for over a month. The patient did have outpatient steroids and antibiotics which she completed however shortness of breath continued to get worse. She continues to have a dry cough with no sputum. Upon workup in the emergency room the patient was noted to have some elevated troponins. She did have a chest x-ray which was negative for any acute process however did show severe cardiomyopathy with no overt failure. Patient did undergo an echocardiogram which revealed an EF of 30-35% RVSP of 49.48 with moderate generalized pericardial effusion, severe mitral regurgitation. This patient is a previous smoker of 1 pack per day for over 40 years. 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 She does use Ventolin inhaler at home. She does have a CPAP at home that she uses on and off but not consistently for ELLEN. Upon examination the patient is resting up in chair on room air. Patient states any time she does a type of activity she becomes very short of breath as well as with extensive conversation. A repeat stat chest x- ray was obtained and continues to show no acute pulmonary process, COPD, with marketed cardiomegaly similar to prior and pericardial effusion should be considered. Cardiology is following and the patient will be transferred to the selective care unit. Review of Systems 14 point review of systems was completed and is negative unless noted above in the HPI Past Medical History Past Medical History: Asthma, Chest Pain / Angina, Diabetes Mellitus, Hyperlipidemia, Hypertension, Renal Disease, Sleep Apnea/CPAP/BIPAP, Thyroid Disorder Additional Past Medical History / Comment(s): Bipolar, colitis, asthma when younger, seizure disorder-last known seizure 1986, client unsure if she has CHF. Anemia. stage 4 kidney disease History of Any Multi-Drug Resistant Organisms: MRSA Date of last positivie culture/infection: 2007 MDRO Source:: abdomen Past Surgical History: Appendectomy, Bowel Resection, Cholecystectomy, Hernia Repair, Tonsillectomy, Tubal Ligation Additional Past Surgical History / Comment(s): salvador cataracts,abd hernia sx w/ mesh-2nd sx to removed mesh and had mrsa after 2nd sx in 2007, bowel sx d/t obstruction, Past Anesthesia/Blood Transfusion Reactions: Motion Sickness Additional Past Anesthesia/Blood Transfusion Reaction / Comment(s): past blood transfusion- no reaction Past Psychological History: Bipolar Additional Psychological History / Comment(s): pt's spouse in sep 2016. lives alone in 2 story home but stays on first level.. has 2-3 porch steps to navigate. 1 pet dog. no outside servoces but familt helps pt out when needed. has a cpap machine. Smoking Status: Former smoker Past Alcohol Use History: None Reported Additional Past Alcohol Use History / Comment(s): SMOKED AGE 1960 - TO 2000, 1 PPD Past Drug Use History: None Reported - Past Family History Father Family Medical History: Cancer Additional Family Medical History / Comment(s): lung cancer. all 11 siblings of father had some sort of cancer Mother Family Medical History: Congestive Heart Failure (CHF) Additional Family Medical History / Comment(s): aunts had bipolar depression Medications and Allergies Home Medications Medication Instructions Recorded Confirmed Type Aspirin 81 mg PO DAILY 05/12/15 01/22/18 History Glimepiride [Amaryl] 1 mg PO AC-[id number] 05/12/15 01/22/18 History Levothyroxine Sodium [Levoxyl] 50 mcg PO DAILY 05/12/15 01/22/18 History Sertraline [Zoloft] 100 mg PO BID 05/12/15 01/22/18 History Simvastatin [Zocor] 40 mg PO HS 05/12/15 01/22/18 History Ziprasidone [Geodon] 40 mg PO BID 05/12/15 01/22/18 History lamoTRIgine 200 mg PO HS 05/12/15 01/22/18 History Ergocalciferol [Vitamin D2] 50,000 unit PO CHAVIRA 01/17/17 01/22/18 History Magnesium Oxide [Mag-Ox] 400 mg PO DAILY 01/17/17 01/22/18 History Albuterol Inhaler [Ventolin Hfa 2 puff INHALATION RT-QID PRN 01/22/18 01/22/18 History Inhaler] Allergies Allergy/AdvReac Type Severity Reaction Status Date / Time codeine Allergy Anaphylaxis Verified 01/22/18 12:41 Iodinated Contrast- Oral and Allergy Chest Pain Verified 01/22/18 12:41 IV Dye [Iodinated Contrast Media - Oral and] Iodine and Iodide Containing Allergy Anaphylaxis Verified 01/22/18 12:41 Produc Physical Exam Vitals: Vital Signs Temp Pulse Pulse Resp BP BP BP 01/23/18 07:09 80 01/23/18 06:59 80 01/23/18 06:10 97.3 F L 74 20 111/66 01/22/18 22:35 97.4 F L 76 22 110/57 01/22/18 16:36 98.8 F 92 17 130/75 01/22/18 16:00 20 01/22/18 15:55 97.8 F 01/22/18 15:24 92 18 135/65 Pulse Ox 01/23/18 07:09 01/23/18 06:59 01/23/18 06:10 98 01/22/18 22:35 97 01/22/18 16:36 97 01/22/18 16:00 01/22/18 15:55 01/22/18 15:24 95 Intake and Output 01/22/18 01/23/18 01/23/18 22:59 06:59 14:59 Intake Total 275 Output Total 1100 Balance -825 Intake: Oral 275 Output: Urine 1100 Other: Voiding Method Toilet Toilet # Voids 1 2 2 Weight 69.2 kg GENERAL EXAM: Alert, active, comfortable in no apparent distress. HEAD: Normocephalic. EYES: Normal reaction of pupils, equal size. NOSE: Clear with pink turbinates. THROAT: No erythema or exudates. NECK: No masses, no JVD. CHEST: No chest wall deformity. LUNGS: Equal air entry with no crackles, wheeze, rhonchi or dullness. CVS: S1 and S2 normal with systolic mumurs, regular rhythm. ABDOMEN: No hepatosplenomegaly, normal bowel sounds, no guarding or rigidity. EXTREMITIES: No edema noted, pedal pulses palpable. CENTRAL NERVOUS SYSTEM: No focal deficits, tone is normal in all 4 extremities. Results - Laboratory Findings CBC and BMP: 01/22/18 12:34 01/22/18 12:34 PT/INR, D-dimer PT 10.6 sec (9.0-12.0) 01/22/18 12:34 INR 1.1 (<1.2) 01/22/18 12:34 Abnormal lab findings: Abnormal Labs 01/22/18 01/22/18 01/22/18 12:34 12:34 12:34 RBC 3.35 L Hgb 11.0 L Hct 32.2 L Chloride 109 H Carbon Dioxide 20 L BUN 20 H Creatinine 1.62 H POC Glucose (mg/dL) AST 39 H CK-MB (CK-2) 2.5 H* Troponin I 0.041 H* 01/22/18 01/22/18 01/22/18 17:01 20:29 20:45 RBC Hgb Hct Chloride Carbon Dioxide BUN Creatinine POC Glucose (mg/dL) 156 H 166 H AST CK-MB (CK-2) Troponin I 0.056 H* 01/23/18 01/23/18 01/23/18 07:00 07:20 11:37 RBC Hgb Hct Chloride Carbon Dioxide BUN Creatinine POC Glucose (mg/dL) 148 H 150 H AST CK-MB (CK-2) Troponin I 0.041 H* - Diagnostic Findings Chest x-ray: report reviewed, image reviewed Assessment and Plan Assessment: Assessment Acute exacerbation of COPD Obstructive sleep apnea Severe Cardiomyopathy Acute systolic congestive heart failure exacerbation Severe mitral regurgitation Moderate pericardial effusion Pulmonary hypertension Diabetes mellitus type 2 Nicotine dependence Chronic kidney disease stage III Plan Medications have been reviewed and will be continued as ordered. Continue gentle diuresis Continue with pulmonary hygiene, coughing and deep breathing exercises, and supportive care. Supplemental oxygen to maintain oxygen saturations of 92% or better. Continue nebulizer treatments, DuoNeb and budesonide IV steroids Nicotine dependence Patient should have a full pulmonary workup including a PFT Education provided in regards to compliance with CPAP machine. Patient will have someone bring her CPAP up to the hospital to use while here. GI and DVT prophylaxis. Appreciate cardiology recommendations We will continue to monitor labs/results and adjust treatment as necessary. Further recommendations pending. Thank you for this consultation we will continue to follow this patient with you I performed an examination of the patient and discussed their management with the nurse practitioner. I have reviewed the nurse practitioner's note and agree with the documented findings and plan of care.
[2018-01-23] MEDS: IPRATROPIUM-ALBUTEROL 3 ML NEB INHALATION SCH ×2 (16:18→20:27)
[2018-01-23 17:17] LABS: Glucose,Whole Blood 128 mg/dL (75-99)
[2018-01-23 20:25] LABS: Glucose,Whole Blood 217 mg/dL (75-99)
[2018-01-23] MEDS: BUDESONIDE 0.5 MG/2 ML NEBU INHALATION SCH (20:27)
[2018-01-23] MEDS: ATORVASTATIN 20 MG TAB PO SCH (22:39)
[2018-01-23] MEDS: lamoTRIgine 100 MG TAB PO SCH (22:40)
[2018-01-24 06:25] LABS: Calcium 10.1 mg/dL (8.4-10.2); Potassium 3.8 mmol/L (3.5-5.1)
[2018-01-24] MEDS: methylPREDNISolone SOD SUCCI 125 MG/2 ML VIAL IV SCH (06:27)
[2018-01-24] MEDS: PANTOPRAZOLE 40 MG TABLET PO SCH (06:27)
[2018-01-24] MEDS: LEVOTHYROXINE 50 MCG TAB PO SCH (06:28)
[2018-01-24] MEDS: GLIMEPIRIDE 1 MG TAB PO SCH (06:28)
[2018-01-24 07:04] LABS: Glucose,Whole Blood 131 mg/dL (75-99)
[2018-01-24] MEDS: INSULIN ASPART 100 UNIT/ML 1 ML 10 ML VIAL SQ SCH ×4 (07:59→20:05)
[2018-01-24] MEDS: BUDESONIDE 0.5 MG/2 ML NEBU INHALATION SCH ×2 (08:00→20:41)
[2018-01-24] MEDS: IPRATROPIUM-ALBUTEROL 3 ML NEB INHALATION SCH ×4 (08:01→20:41)
[2018-01-24] MEDS: ZIPRASIDONE 40 MG CAP PO SCH ×2 (08:06→20:03)
[2018-01-24] MEDS: FUROSEMIDE 10 MG/ML 4 ML VIAL IV SCH (08:06)
[2018-01-24] MEDS: MAGNESIUM OXIDE 400 MG TAB PO SCH (08:07)
[2018-01-24] MEDS: ASPIRIN 81 MG PO SCH (08:07)
[2018-01-24] MEDS: HEPARIN SODIUM,PORCINE 5,000 UNIT/ML 1 ML VIAL SQ SCH ×2 (08:07→20:03)
[2018-01-24] MEDS: METOPROLOL TARTRATE 25 MG TAB PO SCH ×2 (08:08→20:03)
[2018-01-24] MEDS: SERTRALINE 100 MG TAB PO SCH ×2 (08:08→20:03)
[2018-01-24] MEDS ORDERED: POTASSIUM CHLORIDE ER 20 MEQ TAB.ER PO STA (09:31)
--- NOTE | 2018-01-24 09:46 | P.PN ---
Subjective Progress Note Date: 01/24/18 HPI: This is a 77-year-old female patient being seen examined and evaluated today for consultation. This patient came in to the [facility] emergency room with complaints of shortness of breath that had been ongoing for over a month. The patient did have outpatient steroids and antibiotics which she completed however shortness of breath continued to get worse. She continues to have a dry cough with no sputum. Upon workup in the emergency room the patient was noted to have some elevated troponins. She did have a chest x-ray which was negative for any acute process however did show severe cardiomyopathy with no overt failure. Patient did undergo an echocardiogram which revealed an EF of 30-35% RVSP of 49.48 with moderate generalized pericardial effusion, severe mitral regurgitation. This patient is a previous smoker of 1 pack per day for over 40 years. 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 She does use Ventolin inhaler at home. She does have a CPAP at home that she uses on and off but not consistently for ELLEN. Upon examination the patient is resting up in chair on room air. Patient states any time she does a type of activity she becomes very short of breath as well as with extensive conversation. A repeat stat chest x- ray was obtained and continues to show no acute pulmonary process, COPD, with marketed cardiomegaly similar to prior and pericardial effusion should be considered. Cardiology is following and the patient will be transferred to the selective care unit. Interval history: 01/24/2018- patient seen seen examined and evaluated today on the selective care unit. She is resting up in bed on room air. Did utilize her CPAP overnight. She did not need any oxygen overnight. She states her breathing has improved today. She feels the breathing treatments are helping her significantly. Patient states she is possibly going for heart catheterization but is unsure when. She is afebrile all labs and reports have been reviewed. Objective - Vital Signs Vital signs: Vital Signs Temp 97.8 F 01/24/18 04:00 Pulse 80 01/24/18 08:12 Resp 16 01/24/18 04:00 BP 115/57 01/24/18 04:00 Pulse Ox 97 01/24/18 04:00 Intake & Output 01/23/18 01/24/18 01/24/18 18:59 06:59 18:59 Intake Total 575 180 240 Output Total 1250 3400 Balance -354 -7987 240 Weight 69.2 kg 69.2 kg Intake: Oral 575 180 240 Output: Urine 1250 3400 Other: Voiding Method Toilet Toilet # Voids 2 2 - Exam GENERAL EXAM: Alert, active, comfortable in no apparent distress. HEAD: Normocephalic. EYES: Normal reaction of pupils, equal size. NOSE: Clear with pink turbinates. THROAT: No erythema or exudates. NECK: No masses, no JVD. CHEST: No chest wall deformity. LUNGS: Equal air entry with no crackles, wheeze, rhonchi or dullness. CVS: S1 and S2 normal with systolic mumurs, regular rhythm. ABDOMEN: No hepatosplenomegaly, normal bowel sounds, no guarding or rigidity. EXTREMITIES: No edema noted, pedal pulses palpable. CENTRAL NERVOUS SYSTEM: No focal deficits, tone is normal in all 4 extremities. - Labs CBC & Chem 7: 01/22/18 12:34 01/24/18 05:51 Labs: Abnormal Lab Results - Last 24 Hours (Table) 01/23/18 01/23/18 01/23/18 Range/Units 11:37 17:03 20:23 BUN (7-17) mg/dL Creatinine (0.52-1.04) mg/dL Glucose (74-99) mg/dL POC Glucose (mg/dL) 150 H 128 H 217 H (75-99) mg/dL 01/24/18 01/24/18 Range/Units 05:51 06:47 BUN 35 H (7-17) mg/dL Creatinine 1.90 H (0.52-1.04) mg/dL Glucose 130 H (74-99) mg/dL POC Glucose (mg/dL) 131 H (75-99) mg/dL Microbiology - Last 24 Hours (Table) 01/22/18 12:34 Blood Culture - Preliminary Blood No Growth after 24 hours Assessment and Plan Assessment: Assessment Acute exacerbation of COPD Obstructive sleep apnea Severe Cardiomyopathy Acute systolic congestive heart failure exacerbation Severe mitral regurgitation Moderate pericardial effusion Pulmonary hypertension Diabetes mellitus type 2 Nicotine dependence Chronic kidney disease stage III Plan Medications have been reviewed and will be continued as ordered. Continue gentle diuresis Continue with pulmonary hygiene, coughing and deep breathing exercises, and supportive care. Supplemental oxygen to maintain oxygen saturations of 92% or better. Continue nebulizer treatments, DuoNeb and budesonide Patient should continue with DuoNeb and budesonide upon discharge prescription has been provided as well as a prescription for her nebulizer machine IV steroids Nicotine dependence Patient should have a full pulmonary workup including a PFT CPAP at night and with naps Education provided in regards to compliance with CPAP machine. GI and DVT prophylaxis. Appreciate cardiology recommendations We will continue to monitor labs/results and adjust treatment as necessary. Further recommendations pending. Thank you for this consultation we will continue to follow this patient with you I performed an examination of the patient and discussed their management with the nurse practitioner. I have reviewed the nurse practitioner's note and agree with the documented findings and plan of care.
--- NOTE | 2018-01-24 09:59 | P.PN ---
Subjective Progress Note Date: 01/24/18 77-year-old female who presented to the emergency room with a chief complaint of shortness of breath. Patient states she was seen by her primary care physician, Dr. Allen, approximately one month ago for shortness of breath and was prescribed a steroid pack and azithromycin. She initially saw some improvement in her shortness of breath but states over the last week her shortness of breath has progressively gotten worse. She does report an occasional dry cough but denies sputum production. She denies chest pain or pressure. Denies nausea or vomiting. Denies lightheadedness or dizziness. Denies fever or chills. The patient has a history of asthma, diabetes mellitus, hyperlipidemia, hypertension, chronic renal disease, and sleep apnea. She is a former cigarette smoker with a [id number] history. She states she does not see a airline lounge receptionist outpatient. Chest x-ray: Negative for an acute pulmonary process. Hyperinflation compatible with COPD. No evidence for infiltrates or atelectasis. Severe cardiomegaly without evidence of overt failure. Echocardiogram: Severe global hypokinesis of LV, Ejection fraction between 30 and 35%, severely dilated LA, severe mitral regurgitation, moderate tricuspid regurgitation, mild pulmonary hypertension, moderate pericardial effusion Laboratory data: WBC 5.3. Hemoglobin 11.0. Platelet count 211. Sodium 144. Potassium 4.1. BUN 20. Creatinine 1.62. GFR 31. Glucose 98. BNP 5320 Troponin: 0.041, 0.056, 0.041 The patient was admitted to the hospital under the care of Dr. Allen. Consultations were placed to cardiology. 01/24/2018 Patient seen and examined at the bedside. Patient states her breathing feels significantly improved this morning. Patient was started on IV lasix yesterday per cardiology which has since been transitioned to oral. Creatinine today is 1.90, up from 1.62 likely secondary to IV diuresis. She remains on IV steroids. Wheezing has improved. Vital signs remain stable. Patient denies chest pain or pressure. Denies shortness of breath at this time. Denies nausea or vomiting. Denies pain or discomfort. Objective - Vital Signs Vital signs: Vital Signs Temp 97.8 F 01/24/18 04:00 Pulse 80 01/24/18 08:12 Resp 16 01/24/18 04:00 BP 115/57 01/24/18 04:00 Pulse Ox 97 06/01/18 04:00 Intake & Output 01/23/18 01/24/18 01/24/18 18:59 06:59 18:59 Intake Total 575 180 240 Output Total 1250 3400 Balance -675 -7690 240 Weight 69.2 kg 69.2 kg Intake: Oral 575 180 240 Output: Urine 1250 3400 Other: Voiding Method Toilet Toilet # Voids 2 2 - Exam GENERAL: This is a 77-year-old female in no apparent distress at the time of examination. Pleasant and cooperative. HEENT: Head is atraumatic, normocephalic. Pupils are equal, round, and reactive to light. Sclerae anicteric. Conjunctivae are clear. Mucus membranes of the mouth are moist. Neck is supple. RESPIRATORY: Minimal expiratory wheezing to left lower lobe. Wheezing is significantly improved from yesterday. No rales auscultated. No use of accessory muscles. Patient maintaining oxygen saturation greater than 92%. No chest wall tenderness is noted on palpation or with deep breathing. CARDIOVASCULAR: Regular rate and rhythm. S1 and S2 noted. Systolic murmur auscultated. Mild JVD noted. No S3 or S4 noted. GASTROINTESTINAL: No distention noted. Abdomen soft and round. Normal active bowel sounds auscultated x 4 quadrants. No pain or tenderness noted upon palpation. INTEGUMENTARY: No cyanosis. No jaundice. No rashes noted. No cellulitis noted. EXTREMITIES: 2+ peripheral pulses. No evidence of peripheral edema. No calf tenderness noted. NEUROLOGIC: Cranial nerves II-XII intact. PSYCHIATRIC: Awake, alert, and oriented X 3. Appropriate affect. Intact judgement and insight. - Labs CBC & Chem 7: 01/22/18 12:34 01/24/18 05:51 Labs: Abnormal Lab Results - Last 24 Hours (Table) 01/23/18 01/23/18 01/23/18 Range/Units 11:37 17:03 20:23 BUN (7-17) mg/dL Creatinine (0.52-1.04) mg/dL Glucose (74-99) mg/dL POC Glucose (mg/dL) 150 H 128 H 217 H (75-99) mg/dL 01/24/18 01/24/18 Range/Units 05:51 06:47 BUN 35 H (7-17) mg/dL Creatinine 1.90 H (0.52-1.04) mg/dL Glucose 130 H (74-99) mg/dL POC Glucose (mg/dL) 131 H (75-99) mg/dL Microbiology - Last 24 Hours (Table) 01/22/18 12:34 Blood Culture - Preliminary Blood No Growth after 24 hours Assessment and Plan Plan: ASSESSMENT: Acute exacerbation of chronic obstructive pulmonary disease Acute systolic congestive heart failure, BNP 5320, EF 30-35% Severe mitral regurgitation Moderate pericardial effusion, visualized on echocardiogram Pulmonary hypertension, RVSP 49.48 Diabetes mellitus, type II, hemoglobin A1c 5.1% Chronic kidney disease, stage III, GFR 31 on admission Hyperlipidemia Hypertension History of nicotine dependence, patient is a former cigarette smoker with a 40 - pack-year history History of abdominal surgery secondary to obstruction with subsequent MRSA infection, 2007 History of bipolar disorder PLAN: Cardiology on consult. Appreciate recommendations and input Continue Lasix per cardiology Accurate I&O and daily weights Pulmonary on consult. Appreciate recommendations and input Decrease steroids to 40 mg IV every 8 hours DuoNeb nebulizer treatments QID and PRN Will defer nephrology consult at this time. Kidney function slightly worse today likely secondary to IV diuresis. Will continue to monitor bun/ creatinine. If renal function continues to decline, will consult nephrology Home meds as appropriate Monitor labs GI prophylaxis: Protonix 40 mg PO Daily DVT prophylaxis: Heparin 5000 units subcu every 12 hours Monitor vital signs and address as appropriate Discharge planning: Patient to return home when stable Further recommendations pending patient's course Nurse practitioner note has been reviewed by physician. Signing provider agrees with the documented findings, assessment, and plan of care.
[2018-01-24 11:32] LABS: Glucose,Whole Blood 81 mg/dL (75-99)
[2018-01-24 14:47] LABS: Alpha 1 Anti-Trypsin 142 mg/dL (90 - 200)
--- NOTE | 2018-01-24 15:06 | PN ---
PROGRESS NOTE Mrs. Kessler came in with some exacerbation of COPD. She is comfortable resting. Denies any chest pain at this time. Her vital signs are stable. S1-S2 heard normally. Lungs are clear. Abdomen and lower extremity exam is unchanged. Plan is to increase activity. Perform echocardiogram and she can be discharged later on today and I will follow up in the office as scheduled. She will call me sooner if she has a question, concern or problem. I am asking that we switch her Lasix from IV to oral Lasix at 40 mg in the morning and 20 mg in the afternoon. She does have moderate mitral regurgitation. She has a moderate mitral regurgitation as well and this could also be a contributing factor to her shortness of breath. Her ejection fraction is in the range of 35% with significant mitral regurgitation and pulmonary hypertension. We will switch her from IV to oral Lasix, increase activity and hopefully plan for discharge. This lady underwent a cardiac catheterization that was performed in December of 2016 which revealed a right-dominant system, no significant CAD, normal filling pressures but now the ejection fraction appears to be lower on the echocardiogram with mitral regurgitation without any structural disease involving the mitral valve. I will we re- evaluate her as an outpatient and make further recommendations. Patient can be discharged when she is more stable on oral Lasix. Thank you very much for the consult. GERARDOL / IJN: [id number] /
[2018-01-24] MEDS: methylPREDNISolone SOD SUCCI 40 MG/ML 1 ML VIAL IV SCH (16:11)
[2018-01-24 16:27] LABS: Glucose,Whole Blood 131 mg/dL (75-99)
[2018-01-24] MEDS ORDERED: FUROSEMIDE 20 MG TAB PO SCH (18:00)
[2018-01-24] MEDS: lamoTRIgine 100 MG TAB PO SCH (20:03)
[2018-01-24] MEDS: ATORVASTATIN 20 MG TAB PO SCH (20:03)
[2018-01-24 20:50] LABS: Glucose,Whole Blood 158 mg/dL (75-99)
[2018-01-25] MEDS: methylPREDNISolone SOD SUCCI 40 MG/ML 1 ML VIAL IV SCH ×2 (00:15→08:35)
[2018-01-25 06:04] LABS: Glucose,Whole Blood 85 mg/dL (75-99)
[2018-01-25] MEDS: INSULIN ASPART 100 UNIT/ML 1 ML 10 ML VIAL SQ SCH (06:16)
[2018-01-25] MEDS: GLIMEPIRIDE 1 MG TAB PO SCH (06:17)
[2018-01-25] MEDS: LEVOTHYROXINE 50 MCG TAB PO SCH (06:17)
[2018-01-25] MEDS: PANTOPRAZOLE 40 MG TABLET PO SCH (06:17)
[2018-01-25 06:59] LABS: Potassium 3.7 mmol/L (3.5-5.1)
[2018-01-25 07:00] LABS: Calcium 10.1 mg/dL (8.4-10.2)
[2018-01-25] MEDS: IPRATROPIUM-ALBUTEROL 3 ML NEB INHALATION SCH ×2 (08:05→11:44)
[2018-01-25] MEDS: BUDESONIDE 0.5 MG/2 ML NEBU INHALATION SCH (08:05)
[2018-01-25] MEDS: ASPIRIN 81 MG PO SCH (08:35)
[2018-01-25] MEDS: HEPARIN SODIUM,PORCINE 5,000 UNIT/ML 1 ML VIAL SQ SCH (08:35)
[2018-01-25] MEDS: MAGNESIUM OXIDE 400 MG TAB PO SCH (08:36)
[2018-01-25] MEDS: ZIPRASIDONE 40 MG CAP PO SCH (08:36)
[2018-01-25] MEDS: SERTRALINE 100 MG TAB PO SCH (08:36)
[2018-01-25] MEDS: METOPROLOL TARTRATE 25 MG TAB PO SCH (08:36)
[2018-01-25] MEDS ORDERED: FUROSEMIDE 40 MG TAB PO SCH (09:00)
[2018-01-25 10:36] VITALS: BP 107/61; PULSE 74; RESP 16; TEMP 98.9
--- NOTE | 2018-01-25 14:22 | P.DS ---
Providers Date of admission: 01/23/18 14:49 Attending physician: Maurizio Allen Consults: 01/22/18 14:58 Consult Physician Routine Consulting Provider: [facility] Consult Reason/Comments: Dyspnea Do you want consulting provider notified?: Yes 01/23/18 12:39 Consult Physician Routine Consulting Provider: Michell Shields Consult Reason/Comments: COPD, CHF, 40 pk year hx, SOB Do you want consulting provider notified?: Yes Primary care physician: Maurizio Allen [facility] Course: 72-year-old female came in with comments of shortness of breath found to be in heart failure exacerbation patient is euvolemic actually in the hypovolemic side patient is cleared for discharge although patient has elevated creatinine I believe it will come down as she was switched to oral Lasix and the repeat basic metabolic profile will be a obtained as an outpatient in about 3 days and results to be faxed to PCP. Patient does have history of COPD is on IV steroids should just switched to oral steroids. PHYSICAL EXAMINATION: GENERAL: The patient is alert and oriented x3, not in any acute distress. Well developed, well nourished. HEENT: Pupils are round and equally reacting to light. EOMI. No scleral icterus. No conjunctival pallor. Normocephalic, atraumatic. No pharyngeal erythema. No thyromegaly. CARDIOVASCULAR: S1 and S2 present. No rubs, patient may have S3 PULMONARY: Chest is clear to auscultation, no wheezing or crackles. ABDOMEN: Soft, nontender, nondistended, normoactive bowel sounds. No palpable organomegaly. MUSCULOSKELETAL: No joint swelling or deformity. EXTREMITIES: No cyanosis, clubbing, or pedal edema. NEUROLOGICAL: Gross neurological examination did not reveal any focal deficits. SKIN: No rashes. ASSESSMENT: Acute exacerbation of chronic obstructive pulmonary disease Acute systolic congestive heart failure, BNP 5320, EF 30-35% Severe mitral regurgitation Moderate pericardial effusion, visualized on echocardiogram Pulmonary hypertension, RVSP 49.48 Diabetes mellitus, type II, hemoglobin A1c 5.1% Chronic kidney disease, stage III, GFR 31 on admission Hyperlipidemia Hypertension Bipolar disorder Mild acute renal failure: Secondary to excessive diuretic therapy Plan - Discharge Summary Discharge Rx Participant: Yes New Discharge Prescriptions: New Budesonide [Pulmicort] 0.5 mg INHALATION BID #60 neb Ipratropium-Albuterol Nebulize [Duoneb 0.5 mg-3 mg/3 ml Soln] 3 ml INHALATION QID #120 neb Furosemide [Lasix] 20 mg PO DAILY@1800 #30 tab Furosemide [Lasix] 40 mg PO DAILY #30 tab Metoprolol Tartrate [Lopressor] 25 mg PO BID #60 tab predniSONE 10 mg PO DAILY #30 tab Continue Aspirin 81 mg PO DAILY lamoTRIgine 200 mg PO HS Ziprasidone [Geodon] 40 mg PO BID Simvastatin [Zocor] 40 mg PO HS Sertraline [Zoloft] 100 mg PO BID Levothyroxine Sodium [Levoxyl] 50 mcg PO DAILY Ergocalciferol [Vitamin D2 (DRISDOL)] 50,000 unit PO CHAVIRA Magnesium Oxide [Mag-Ox] 400 mg PO DAILY Albuterol Inhaler [Ventolin Hfa Inhaler] 2 puff INHALATION RT-QID PRN PRN Reason: Shortness Of Breath Discontinued Glimepiride [Amaryl] 1 mg PO [id number]-[id number] Discharge Medication List Aspirin 81 mg PO DAILY 05/12/15 [History] Levothyroxine Sodium [Levoxyl] 50 mcg PO DAILY 05/12/15 [History] Sertraline [Zoloft] 100 mg PO BID 05/12/15 [History] Simvastatin [Zocor] 40 mg PO HS 05/12/15 [History] Ziprasidone [Geodon] 40 mg PO BID 05/12/15 [History] lamoTRIgine 200 mg PO HS 05/12/15 [History] Ergocalciferol [Vitamin D2 (DRISDOL)] 50,000 unit PO CHAVIRA 01/17/17 [History] Magnesium Oxide [Mag-Ox] 400 mg PO DAILY 01/17/17 [History] Albuterol Inhaler [Ventolin Hfa Inhaler] 2 puff INHALATION RT-QID PRN 01/22/18 [ History] Budesonide [Pulmicort] 0.5 mg INHALATION BID #60 neb 01/24/18 [Rx] Ipratropium-Albuterol Nebulize [Duoneb 0.5 mg-3 mg/3 ml Soln] 3 ml INHALATION QID #120 neb 01/24/18 [Rx] Furosemide [Lasix] 20 mg PO DAILY@1800 #30 tab 01/25/18 [Rx] Furosemide [Lasix] 40 mg PO DAILY #30 tab 01/25/18 [Rx] Metoprolol Tartrate [Lopressor] 25 mg PO BID #60 tab 01/25/18 [Rx] predniSONE 10 mg PO DAILY #30 tab 01/25/18 [Rx] Follow up Appointment(s)/Referral(s): Rebekah Tyler MD [STAFF PHYSICIAN] - 3 Weeks Maurizio Allen DO [Primary Care Provider] - 3 Days Michell Shields DO [Doctor of Osteopathic Medicine] - 1-2 Days Ambulatory/Diagnostic Orders: Basic Metabolic Panel [LAB.AMB] Time Frame: 3 Days, Location: Determined By Patient Patient Instructions/Handouts: Sleep Apnea (DC), COPD (Chronic Obstructive Pulmonary Disease) (DC) Discharge Disposition: HOME SELF-CARE
[2018-01-26] MEDS ORDERED: predniSONE 20 MG TAB PO SCH (09:00)
[2018-01-29 13:25] LABS: Alt. alternata IgE Class CLASS 0; Alternaria alternata IgE <0.35 kU/L (<0.35); Asperg. fumagatus IgE <0.35 kU/L (<0.35); Asperg. fumagatus IgE Class CLASS 0; Bermuda Grass IgE <0.35 kU/L (<0.35); Birch(Com.Silvr) IgE <0.35 kU/L (<0.35); Birch(Com.Silvr) IgE Class CLASS 0; Cat Epith & Dander IgE <0.35 kU/L (<0.35); Cat Epith & Dander IgE Class CLASS 0; Clad herbarum IgE <0.35 kU/L (<0.35); Cockroach IgE <0.35 kU/L (<0.35); Cottonwood IgE <0.35 kU/L (<0.35); Dermato. farinae IgE 1.31 kU/L (<0.35); Dermato. farinae IgE Class CLASS II; Dog Dander IgE <0.35 kU/L (<0.35); Elm IgE <0.35 kU/L (<0.35); Maple (Box Elder) IgE <0.35 kU/L (<0.35); Maple (Box Elder) IgE Class CLASS 0; Mountain Cedar IgE <0.35 kU/L (<0.35); Mountain Cedar IgE Class CLASS 0; Mouse Urine IgE Class CLASS 0; Nettle IgE <0.35 kU/L (<0.35); Nettle IgE Class CLASS 0; Oak IgE <0.35 kU/L (<0.35); Penicillium notatum IgE Class CLASS 0; Rough Marshelder IgE <0.35 kU/L (<0.35); Rough Marshelder IgE Class CLASS 0; Timothy Grass IgE <0.35 kU/L (<0.35); White Ash IgE Class CLASS 0
[2018-01-29 13:49] LABS: Alternaria Alternata IgG 5.4 mcg/mL (< 13.6); Aspergillus fumigatus IgG Not detected (Not detected); Aureobasidium pullulans IgG 4.2 mcg/mL (< 13.6); Cladosporium herbarium IgG 9.9 mcg/mL (< 14.7); Phoma ssp. IgG 6.5 mcg/mL (< 6.6); Saccaharomospora viridis Not detected (Not detected); Saccaharopoly. rectivirgula Not detected (Not detected)
== END 2018-01-25 11:51 | disposition home or self-care (01) | DRG 291 ==
LOC: EC 12:10 → 4MS4W 14:58 → 6SEL 01-23 14:07 → OBSVTOIN 01-23 14:49
PROVIDERS: ADMIT Family Medicine; ATTEND Family Medicine
DX: I13.0 Hypertensive heart and chronic kidney disease with heart failure and stage 1 through stage 4 chronic kidney disease, or unspecified chronic kidney disease (principal); I50.23 Acute on chronic systolic (congestive) heart failure; J44.1 Chronic obstructive pulmonary disease with (acute) exacerbation; I31.3 Pericardial effusion (noninflammatory); N17.9 Acute kidney failure, unspecified; E03.9 Hypothyroidism, unspecified; E11.22 Type 2 diabetes mellitus with diabetic chronic kidney disease; E78.5 Hyperlipidemia, unspecified; E86.1 Hypovolemia; F17.200 Nicotine dependence, unspecified, uncomplicated; F31.9 Bipolar disorder, unspecified; Z79.82 Long term (current) use of aspirin; Z79.899 Other long term (current) drug therapy; Z79.890 Hormone replacement therapy; Z88.5 Allergy status to narcotic agent; Z91.041 Radiographic dye allergy status; Z86.14 Personal history of Methicillin resistant Staphylococcus aureus infection; Z98.42 Cataract extraction status, left eye; Z98.41 Cataract extraction status, right eye; I27.20 Pulmonary hypertension, unspecified; G47.33 Obstructive sleep apnea (adult) (pediatric); I08.1 Rheumatic disorders of both mitral and tricuspid valves; I42.9 Cardiomyopathy, unspecified; I44.7 Left bundle-branch block, unspecified; N18.3 Chronic kidney disease, stage 3 (moderate); Z80.1 Family history of malignant neoplasm of trachea, bronchus and lung; Z82.49 Family history of ischemic heart disease and other diseases of the circulatory system; Z81.8 Family history of other mental and behavioral disorders
CPT/HCPCS: 36415; 71046; 76536; 80048; 80053; 82103; 82104; 82550; 82553; 82785; 83036; 83735; 83880; 84484; 85025; 85610; 85730; 86001; 86003; 86606; 86609; 87040; 93005; 93306; 94640; 94760; 96374; 99285

== ENCOUNTER → 2018-04-29 | Outpatient (CLI) | payer MEDICARE ==
[2018-04-29 08:56] LABS: Albumin 4.1 g/dL (3.5-5.0); Calcium 9.9 mg/dL (8.4-10.2); Magnesium 1.9 mg/dL (1.6-2.3); Phosphorus 4.2 mg/dL (2.5-4.5); Potassium 4.5 mmol/L (3.5-5.1); Uric Acid 5.2 mg/dL (3.7-7.4)
[2018-04-29 08:57] LABS: Anisocytosis Slight; Basophils # (A) 0.1 k/uL (0-0.2); Basophils % (A) 2 %; Eosinophils # (A) 0.3 k/uL (0-0.7); Eosinophils % (A) 7 %; HCT 35.9 % (34.0-46.0); HGB 11.3 gm/dL (11.4-16.0); Lymphocytes # (A) 1.2 k/uL (1.0-4.8); Lymphocytes % (A) 27 %; MCH 30.8 pg (25.0-35.0); MCHC 31.4 g/dL (31.0-37.0); MCV 98.1 fL (80.0-100.0); Macrocytosis Slight; Mean Platelet Volume 6.8; Monocytes # (A) 0.3 k/uL (0-1.0); Monocytes % (A) 6 %; Neutrophils # (A) 2.5 k/uL (1.3-7.7); Neutrophils % (A) 56 %; Platelet Count 179 k/uL (150-450); RBC 3.66 m/uL (3.80-5.40); RDW 17.3 % (11.5-15.5); WBC 4.4 k/uL (3.8-10.6)
[2018-04-29 09:04] LABS: Appearance,Urine Clear (Clear); Bacteria,Urine Rare /hpf; Bilirubin,Urine Negative (Negative); Blood,Urine Negative (Negative); Color,Urine Yellow; Glucose,Urine (UA) Negative (Negative); Ketones,Urine Negative (Negative); Leukocyte Esterase,Urine Moderate (Negative); Mucus,Urine Rare /hpf; Nitrite,Urine Negative (Negative); PH, Urine 5.5 (5.0-8.0); Protein,Urine Trace (Negative); RBC,Urine <1 /hpf (0-5); Specific Gravity,Urine 1.016 (1.001-1.035); Squamous Epithelial Cell,Urine 1 /hpf (0-4); Urobilinogen,Urine <2.0 mg/dL (<2.0); WBC,Urine 5 /hpf (0-5)
[2018-04-29 16:42] LABS: Parathyroid Hormone Intact 166.5 pg/mL (14.0-72.0)
[2018-04-29 16:53] LABS: Iron Saturation 19.36 (12.00-45.00)
[2018-04-29 17:01] LABS: Vitamin D 25 Hydroxy 46.9 ng/mL (30.0-100.0)
== END | disposition home or self-care (01) ==
LOC: LABWHC1 08:00
PROVIDERS: ATTEND Nurse Practitioner Family
DX: N18.3 Chronic kidney disease, stage 3 (moderate) (principal); D63.1 Anemia in chronic kidney disease; M10.9 Gout, unspecified; N39.0 Urinary tract infection, site not specified
CPT/HCPCS: 36415; 80048; 81001; 82040; 82306; 82728; 83540; 83550; 83735; 83970; 84100; 84550; 85025; 87086

== ENCOUNTER → 2018-08-22 | Outpatient (CLI) | payer MEDICARE ==
[2018-08-22 13:46] LABS: Basophils # (A) 0.1 k/uL (0-0.2); Basophils % (A) 1 %; Eosinophils # (A) 0.2 k/uL (0-0.7); Eosinophils % (A) 3 %; HCT 40.7 % (34.0-46.0); HGB 13.4 gm/dL (11.4-16.0); Lymphocytes # (A) 1.5 k/uL (1.0-4.8); Lymphocytes % (A) 27 %; MCH 32.2 pg (25.0-35.0); MCV 97.5 fL (80.0-100.0); Mean Platelet Volume 7.4; Monocytes # (A) 0.4 k/uL (0-1.0); Monocytes % (A) 8 %; Neutrophils # (A) 3.3 k/uL (1.3-7.7); Neutrophils % (A) 58 %; Platelet Count 192 k/uL (150-450); RBC 4.17 m/uL (3.80-5.40); RDW 14.4 % (11.5-15.5); WBC 5.7 k/uL (3.8-10.6)
[2018-08-22 14:03] LABS: Appearance,Urine Clear (Clear); Bacteria,Urine Rare /hpf; Bilirubin,Urine Negative (Negative); Blood,Urine Negative (Negative); Color,Urine Yellow; Glucose,Urine (UA) Negative (Negative); Ketones,Urine Negative (Negative); Leukocyte Esterase,Urine Small (Negative); Mucus,Urine Rare /hpf; Nitrite,Urine Negative (Negative); PH, Urine 5.5 (5.0-8.0); Protein,Urine Trace (Negative); Specific Gravity,Urine 1.012 (1.001-1.035); Squamous Epithelial Cell,Urine 3 /hpf (0-4); Urobilinogen,Urine <2.0 mg/dL (<2.0); WBC,Urine 2 /hpf (0-5)
[2018-08-22 18:45] LABS: Iron Saturation 17.94 (12.00-45.00)
[2018-08-22 18:53] LABS: Vitamin D 25 Hydroxy 60.8 ng/mL (30.0-100.0)
[2018-08-22 19:04] LABS: Albumin 4.5 g/dL (3.80-4.90); Albumin/Globulin Ratio 2.5 (1.20-2.10); Anion Gap 11.5 mmol/L (4.00-12.00); Calcium 9.4 mg/dL (8.7-10.3); Carbon Dioxide 29.5 mmol/L (21.6-31.8); Globulin 1.8 g/dL (1.6-3.3); Magnesium 2.6 mg/dL (1.5-2.4); Potassium 4.1 mmol/L (3.5-5.5); Total Bilirubin 0.5 mg/dL (0.3-1.2); Total Protein 6.3 g/dL (6.2-8.2); Uric Acid 9.9 mg/dL (2.9-7.7)
[2018-08-22 19:36] LABS: Parathyroid Hormone Intact 503.3 pg/mL (14.0-72.0)
[2018-08-22 21:01] LABS: Creatinine,Urine Random 138.6 mg/dL
[2018-08-22 21:30] LABS: Total Protein,Urine Random 22.4 mg/dL (0.0-13.5)
== END ==
LOC: LABWHC1 13:10
PROVIDERS: ATTEND Internal Medicine Nephrology
DX: N18.3 Chronic kidney disease, stage 3 (moderate) (principal); D63.1 Anemia in chronic kidney disease; E83.09 Other disorders of copper metabolism; E55.9 Vitamin D deficiency, unspecified; M10.9 Gout, unspecified; N39.0 Urinary tract infection, site not specified; N25.81 Secondary hyperparathyroidism of renal origin
CPT/HCPCS: 36415; 80053; 81001; 82306; 82570; 82728; 83540; 83550; 83735; 83970; 84100; 84156; 84550; 85025

== ENCOUNTER → 2018-10-21 | Outpatient (CLI) | payer MEDICARE ==
[2018-10-21 10:35] LABS: Basophils # (A) 0.1 k/uL (0-0.2); Basophils % (A) 1 %; Eosinophils # (A) 0.1 k/uL (0-0.7); Eosinophils % (A) 2 %; HCT 37.2 % (34.0-46.0); HGB 12.3 gm/dL (11.4-16.0); Lymphocytes # (A) 1.3 k/uL (1.0-4.8); Lymphocytes % (A) 30 %; MCH 33.4 pg (25.0-35.0); MCHC 33.2 g/dL (31.0-37.0); MCV 100.7 fL (80.0-100.0); Macrocytosis Slight; Mean Platelet Volume 6.5; Monocytes # (A) 0.4 k/uL (0-1.0); Monocytes % (A) 10 %; Neutrophils # (A) 2.3 k/uL (1.3-7.7); Neutrophils % (A) 54 %; Platelet Count 199 k/uL (150-450); RBC 3.69 m/uL (3.80-5.40); RDW 15.5 % (11.5-15.5); WBC 4.3 k/uL (3.8-10.6)
[2018-10-21 11:27] LABS: Poikilocytosis (M) Present
[2018-10-21 12:25] LABS: Appearance,Urine Clear (Clear); Bilirubin,Urine Negative (Negative); Blood,Urine Negative (Negative); Color,Urine Colorless; Glucose,Urine (UA) Negative (Negative); Ketones,Urine Negative (Negative); Leukocyte Esterase,Urine Negative (Negative); Nitrite,Urine Negative (Negative); PH, Urine 5.5 (5.0-8.0); Protein,Urine Negative (Negative); Specific Gravity,Urine 1.004 (1.001-1.035); Urobilinogen,Urine <2.0 mg/dL (<2.0)
[2018-10-21 16:13] LABS: Iron Saturation 23.6 (12.00-45.00)
[2018-10-21 16:27] LABS: Albumin 4.7 g/dL (3.80-4.90); Albumin/Globulin Ratio 2.35 (1.60-3.17); Anion Gap 9.5 mmol/L (4.00-12.00); Carbon Dioxide 30.5 mmol/L (21.6-31.8); Magnesium 2.1 mg/dL (1.5-2.4); Phosphorus 4.2 mg/dL (2.4-5.1); Potassium 3.7 mmol/L (3.5-5.5); Total Bilirubin 0.5 mg/dL (0.3-1.2); Total Protein 6.7 g/dL (6.2-8.2)
[2018-10-21 18:03] LABS: Parathyroid Hormone Intact 171.1 pg/mL (14.0-72.0)
[2018-10-21 20:33] LABS: Creatinine,Urine Random 30.8 mg/dL
[2018-10-21 20:34] LABS: Total Protein,Urine Random <4.0 mg/dL (0.0-13.5)
== END | disposition home or self-care (01) ==
LOC: LABWHC1 09:10
PROVIDERS: ATTEND Nurse Practitioner Family
DX: N39.0 Urinary tract infection, site not specified (principal); R80.9 Proteinuria, unspecified; M10.9 Gout, unspecified; N25.81 Secondary hyperparathyroidism of renal origin; D63.1 Anemia in chronic kidney disease; N18.3 Chronic kidney disease, stage 3 (moderate)
CPT/HCPCS: 36415; 80053; 81003; 82570; 82728; 83540; 83550; 83735; 83970; 84100; 84156; 84550; 85025

== ENCOUNTER → 2018-10-28 | Outpatient (CLI) | payer MEDICARE ==
--- NOTE | 2018-10-29 06:43 | CT ---
EXAMINATION TYPE: CT chest wo con DATE OF EXAM: 10/28/2018 COMPARISON: Chest x-ray January 23, 2018 HISTORY: ILD. CT DLP: 122 mGycm. Automated Exposure Control for Dose Reduction was Utilized. TECHNIQUE: CT scan of the thorax is performed without IV contrast. High-resolution protocol with 1 m m sequences obtained and 10 mm intervals utilizing supine and prone technique. FINDINGS: LUNGS: There is no significant parenchymal fibrosis or peripheral reticulation. No suspicious focal c onsolidation is seen. No large intraparenchymal masses are identified. There is no significant bronch iectasis. No pleural effusion or pneumothorax is evident. MEDIASTINUM: Lack of IV contrast and technique is noted to limit evaluation for mediastinal and espec ially hilar adenopathy. There are no definitive greater than 1 cm hilar or mediastinal lymph nodes. No significant pericardial effusion is seen. Cardiomegaly is present. There is suspected coronary st ent in the RCA distribution. There is enlarged main pulmonary artery measuring 3.3 cm in diameter. OTHER: Cholecystectomy clips are noted. There is 9 mm splenic artery aneurysm towards the hilum. Ther e is moderate calcified plaque of the aorta with more prominent plaque near diaphragm. There is multi level spurring in the spine. IMPRESSION: Cardiomegaly with underlying pulmonary artery hypertension. No significant acute or chron ic pulmonary parenchymal process.
--- NOTE | 2018-10-29 18:32 | ECHOF ---
Referral Reason:I27.20 Pulmonary HTN MEASUREMENTS -------- HEIGHT: 157.5 cm WEIGHT: 54.4 kg BP: RVIDd: 3.1 cm (< 3.3) IVSd: 1.0 cm (0.6 - 1.1) LVIDd: 5.5 cm (3.9 - 5.3) LVPWd: 1.0 cm (0.6 - 1.1) IVSs: 1.1 cm LVIDs: 5.0 cm LVPWs: 1.2 cm LAESV Index (A-L): 65.00 ml/m Ao Diam: 2.9 cm (2.0 - 3.7) AV Cusp: 1.6 cm (1.5 - 2.6) LA Diam: 4.0 cm (2.7 - 3.8) EPSS: 1.5 cm MV E Fox: 0.79 m/s MV DecT: 210 ms MV A Fox: 0.97 m/s MV E/A Ratio: 0.82 RAP: 5.00 mmHg RVSP: 38.63 mmHg MV EF SLOPE: 37.87 mm/s (70 - 150) MV EXCURSION: 1.30 cm (> 18.000) FINDINGS -------- Sinus rhythm. This was a technically good study. The left ventricular size is normal. Left ventricular wall thickness is normal. There is severe g lobal hypokinesis of LV . Overall left ventricular systolic function is severely impaired with, an EF < 20%. The right ventricle is normal in size. LA is severely dilated >40 ml/m2 RA appears enlarged. Aortic valve is trileaflet and is mildly thickened. There is no evidence of aortic regurgitation. There is no evidence of aortic stenosis. The mitral valve leaflets are mild to moderately thickened. Mild mitral annular calcification pres ent. Severe mitral regurgitation is present. Uesn-gu-pebowpam tricuspid regurgitation present. There is mild pulmonary hypertension. The right ventricular systolic pressure, as measured by Doppler, is 38.63mmHg. Trace/mild (physiologic) pulmonic regurgitation. The aortic root size is normal. Normal inferior vena cava with normal inspiratory collapse consistent with estimated right atrial pre ssure of 5 mmHg. There is a small, generalized pericardial effusion present. Moderate Pleural Effusion. CONCLUSIONS -------- 1. Sinus rhythm. 2. This was a technically good study. 3. The left ventricular size is normal. 4. Left ventricular wall thickness is normal. 5. There is severe global hypokinesis of LV . 6. Overall left ventricular systolic function is severely impaired with, an EF < 20%. 7. The right ventricle is normal in size. 8. LA is severely dilated >40 ml/m2 9. RA appears enlarged. 10. Aortic valve is trileaflet and is mildly thickened. 11. The mitral valve leaflets are mild to moderately thickened. 12. Mild mitral annular calcification present. 13. Severe mitral regurgitation is present. 14. Xuzk-li-kensnomq tricuspid regurgitation present. 15. There is mild pulmonary hypertension. 16. The right ventricular systolic pressure, as measured by Doppler, is 38.63mmHg. 17. Trace/mild (physiologic) pulmonic regurgitation. 18. The aortic root size is normal. 19. There is a small, generalized pericardial effusion present. 20. Moderate Pleural Effusion. COSMETOLOGIST APPRENTICE: Cain Cunningham RDCS
== END ==
LOC: RADCTMAIN 14:24
PROVIDERS: ATTEND Internal Medicine Pulmonary Disease
DX: I08.1 Rheumatic disorders of both mitral and tricuspid valves (principal); I27.21 Secondary pulmonary arterial hypertension; J84.9 Interstitial pulmonary disease, unspecified; J90 Pleural effusion, not elsewhere classified; I31.3 Pericardial effusion (noninflammatory); I08.8 Other rheumatic multiple valve diseases
CPT/HCPCS: 71250; 93306

== ENCOUNTER → 2018-11-07 | Outpatient (CLI) | payer MEDICARE ==
[2018-11-07 16:31] LABS: Vitamin D 25 Hydroxy 33.3 ng/mL (30.0-100.0)
[2018-11-07 17:55] LABS: Albumin 4.6 g/dL (3.80-4.90); Albumin/Globulin Ratio 2.42 (1.60-3.17); Calcium 9.9 mg/dL (8.7-10.3); Globulin 1.9 g/dL (1.6-3.3); Potassium 3.5 mmol/L (3.5-5.5); Total Bilirubin 0.4 mg/dL (0.3-1.2); Total Protein 6.5 g/dL (6.2-8.2)
[2018-11-07 18:24] LABS: Parathyroid Hormone Intact 200.6 pg/mL (14.0-72.0)
== END ==
LOC: LABWHC1 10:30
PROVIDERS: ATTEND Internal Medicine Endocrinology, Diabetes & Metabolism
DX: E21.0 Primary hyperparathyroidism (principal)
CPT/HCPCS: 36415; 80053; 82306; 83970

== ENCOUNTER → 2018-12-19 | Outpatient (CLI) | payer MEDICARE ==
--- NOTE | 2018-12-19 14:45 | US ---
EXAMINATION TYPE: US thyroid st tissue head/neck DATE OF EXAM: 12/19/2018 COMPARISON: NONE CLINICAL HISTORY: E21.0 HYERPARATHYROIDISM. Hyperparathyroidism GLAND SIZE: Right Lobe: 3.6 x 1.4 x 2.0 cm Overall Parenchyma: heterogenous Left Lobe: 3.2 x 1.0 x 1.2 cm Overall Parenchyma: heterogeneous Isthmus Thickness: 0.3 cm NODULES RIGHT: # of nodules measured on right: 0 LEFT: # of nodules measured on left: 0 ISTHMUS: # of nodules measured in the isthmus: 0 Bilateral neck scanned, no evidence of abnormal lymphadenopathy. No suspicious nodules are adjacent t hyroid. IMPRESSION: 1. Normal thyroid ultrasound
--- NOTE | 2018-12-22 19:01 | BD ---
EXAMINATION TYPE: Axial Bone Density DATE OF EXAM: 12/19/2018 COMPARISON: NONE CLINICAL HISTORY: 78-year-old female hyperparathyroidism Height: 61.5 Weight: 120.2 FRAX RISK QUESTIONS: Alcohol (3 or more units per day): no Family History (Parent hip fracture): yes Glucocorticoids (More than 3mos): no (Ex: prednisone, prednisolone, methylprednisolone, dexamethasone, and hydrocortisone). History of Fracture in Adulthood: no Secondary Osteoporosis: 1. Type 1 Diabetes: no 2. Hyperthyroidism: no 3. Menopause before 45: no 4. Malnutrition: no 5. Chronic liver disease: no Rheumatoid Arthritis: no Current Tobacco Use: no RISK FACTORS HISTORY OF: Surgery to Spine/Hip(right/left)/Wrist (right/left): no Family History of Osteoporosis: no Active: yes Diet low in dairy products/other sources of calcium: no Postmenopausal woman: age 55 Lost more than 2 inches in height since high school: no MEDICATIONS: Lasix, magnesium, ferrous sulfate, allopurinol, Lamictal, lorazepam, geedon, acidophilus , aspirin, Sensipar Thyroid Medications: levothyroxine How Long: long time Additional History: EXAM MEASUREMENTS: Bone mineral densitometry was performed using the [employer]id[employer] System. Bone mineral density as measured about the Lumbar spine is: ----- L1-L4(G/cm2): 1.230 T Score Values are as follows: ----- L2: 0.4 ----- L3: 1.2 ----- L4: 0.3 ----- L1-L4: 0.4 Bone mineral density : baseline Bone mineral density about the R hip (g/cm2): 0.861 Bone mineral density about the L hip (g/cm2): 0.786 T Score values are as follows: -----R Neck: -1.3 -----L Neck: -1.8 -----R Total: -0.9 -----L Total: -1.2 Bone mineral density : baseline IMPRESSION: Osteopenia (T Score between -2.5 and -1). There is slightly increased risk of fracture and the patient may be considered for treatment. Re-Screen 2-5 years. NOTE: T-SCORE=SD OF THE YOUNG ADULT MEAN.
== END | disposition home or self-care (01) ==
LOC: RADUSWWP 13:52
PROVIDERS: ATTEND Surgery
DX: E21.0 Primary hyperparathyroidism (principal); M85.80 Other specified disorders of bone density and structure, unspecified site
CPT/HCPCS: 76536; 77080

== ENCOUNTER → 2019-01-20 | Outpatient (CLI) | payer MEDICARE ==
[2019-01-20 09:26] LABS: Appearance,Urine Clear (Clear); Bilirubin,Urine Negative (Negative); Blood,Urine Negative (Negative); Color,Urine Light Yellow; Glucose,Urine (UA) Negative (Negative); Ketones,Urine Negative (Negative); Leukocyte Esterase,Urine Negative (Negative); Nitrite,Urine Negative (Negative); Protein,Urine Negative (Negative); Specific Gravity,Urine 1.009 (1.001-1.035); Urobilinogen,Urine <2.0 mg/dL (<2.0)
[2019-01-20 10:01] LABS: Basophils # (A) 0.1 k/uL (0-0.2); Basophils % (A) 1 %; Eosinophils # (A) 0.1 k/uL (0-0.7); Eosinophils % (A) 3 %; HCT 36.4 % (34.0-46.0); HGB 12.2 gm/dL (11.4-16.0); Lymphocytes # (A) 0.8 k/uL (1.0-4.8); Lymphocytes % (A) 15 %; MCH 33.1 pg (25.0-35.0); MCHC 33.5 g/dL (31.0-37.0); MCV 98.6 fL (80.0-100.0); Mean Platelet Volume 7.4; Monocytes # (A) 0.3 k/uL (0-1.0); Monocytes % (A) 5 %; Neutrophils # (A) 4.3 k/uL (1.3-7.7); Neutrophils % (A) 75 %; Platelet Count 197 k/uL (150-450); RBC 3.69 m/uL (3.80-5.40); RDW 14.4 % (11.5-15.5); WBC 5.7 k/uL (3.8-10.6)
[2019-01-20 16:05] LABS: Iron Saturation 23.52 (12.00-45.00)
[2019-01-20 16:23] LABS: Parathyroid Hormone Intact 163.3 pg/mL (14.0-72.0)
[2019-01-20 16:56] LABS: African American GFR (CKD) 35.9 (60.0-200.0); Albumin 4.5 g/dL (3.80-4.90); Anion Gap 10.6 mmol/L (4.00-12.00); BUN/Creat Ratio 15.63 Ratio (12.00-20.00); Calcium 9.5 mg/dL (8.7-10.3); Carbon Dioxide 29.4 mmol/L (21.6-31.8); Magnesium 1.8 mg/dL (1.5-2.4); Phosphorus 3.4 mg/dL (2.4-5.1); Potassium 2.8 mmol/L (3.5-5.5); Uric Acid 5.5 mg/dL (2.9-7.7)
[2019-01-20 18:12] LABS: Creatinine,Urine Random 53.7 mg/dL
[2019-01-20 18:38] LABS: Total Protein,Urine Random 6.6 mg/dL (0.0-13.5)
== END | disposition home or self-care (01) ==
LOC: LABWHC1 08:49
PROVIDERS: ATTEND Internal Medicine Nephrology
DX: N39.0 Urinary tract infection, site not specified (principal); E55.9 Vitamin D deficiency, unspecified; M10.9 Gout, unspecified; D63.1 Anemia in chronic kidney disease; N18.3 Chronic kidney disease, stage 3 (moderate); N25.81 Secondary hyperparathyroidism of renal origin; R80.9 Proteinuria, unspecified
CPT/HCPCS: 36415; 80048; 81003; 82040; 82570; 82728; 83540; 83550; 83735; 83970; 84100; 84156; 84550; 85025

== ENCOUNTER → 2019-04-20 | Outpatient (CLI) | payer MEDICARE ==
[2019-04-20 09:18] LABS: Basophils # (A) 0.1 k/uL (0-0.2); Basophils % (A) 1 %; Eosinophils # (A) 0.2 k/uL (0-0.7); Eosinophils % (A) 3 %; HCT 37.6 % (34.0-46.0); HGB 12.6 gm/dL (11.4-16.0); Lymphocytes # (A) 1.1 k/uL (1.0-4.8); Lymphocytes % (A) 17 %; MCH 33.7 pg (25.0-35.0); MCHC 33.6 g/dL (31.0-37.0); MCV 100.3 fL (80.0-100.0); Macrocytosis Slight; Mean Platelet Volume 7.3; Monocytes # (A) 0.3 k/uL (0-1.0); Monocytes % (A) 5 %; Neutrophils # (A) 4.7 k/uL (1.3-7.7); Neutrophils % (A) 72 %; Platelet Count 220 k/uL (150-450); RBC 3.75 m/uL (3.80-5.40); RDW 14.4 % (11.5-15.5); WBC 6.5 k/uL (3.8-10.6)
[2019-04-20 09:45] LABS: Appearance,Urine Clear (Clear); Bacteria,Urine Rare /hpf; Bilirubin,Urine Negative (Negative); Blood,Urine Negative (Negative); Color,Urine Yellow; Glucose,Urine (UA) Negative (Negative); Hyaline Casts,Urine 24 /lpf (0-2); Ketones,Urine Negative (Negative); Leukocyte Esterase,Urine Large (Negative); Mucus,Urine Rare /hpf; Nitrite,Urine Negative (Negative); Protein,Urine Trace (Negative); RBC,Urine 7 /hpf (0-5); Specific Gravity,Urine 1.014 (1.001-1.035); Squamous Epithelial Cell,Urine 4 /hpf (0-4); Urobilinogen,Urine <2.0 mg/dL (<2.0); WBC,Urine 6 /hpf (0-5)
[2019-04-20 17:59] LABS: Iron Saturation 16.22 (12.00-45.00)
[2019-04-20 18:26] LABS: African American GFR (CKD) 33.4 (60.0-200.0); Albumin 4.8 g/dL (3.80-4.90); Albumin/Globulin Ratio 2.4 (1.60-3.17); Anion Gap 11.1 mmol/L (4.00-12.00); BUN/Creat Ratio 12.94 Ratio (12.00-20.00); Calcium 9.4 mg/dL (8.7-10.3); Carbon Dioxide 29.9 mmol/L (21.6-31.8); Potassium 3.8 mmol/L (3.5-5.5); T4, Free (Free Thyroxine) 0.9 ng/dL (0.80-1.80); Total Bilirubin 0.5 mg/dL (0.2-1.2); Total Protein 6.8 g/dL (6.2-8.2); Uric Acid 5.7 mg/dL (2.9-7.7)
[2019-04-20 18:34] LABS: Creatinine,Urine Random 154.1 mg/dL
[2019-04-20 18:42] LABS: Phosphorus 3.8 mg/dL (2.4-5.1)
[2019-04-20 18:54] LABS: Total Protein,Urine Random 19.8 mg/dL (0.0-13.5)
[2019-04-20 19:28] LABS: Hemoglobin A1C 5.2 % (4.0-6.0)
== END | disposition home or self-care (01) ==
LOC: LABWHC1 08:07
PROVIDERS: ATTEND Nurse Practitioner Family
DX: E21.0 Primary hyperparathyroidism (principal); M10.9 Gout, unspecified; N39.0 Urinary tract infection, site not specified; D64.9 Anemia, unspecified; R80.9 Proteinuria, unspecified; N18.3 Chronic kidney disease, stage 3 (moderate); E03.9 Hypothyroidism, unspecified; R73.9 Hyperglycemia, unspecified
CPT/HCPCS: 36415; 80053; 81001; 82570; 82728; 83036; 83540; 83550; 83735; 83970; 84100; 84156; 84439; 84443; 84550; 85025

== ENCOUNTER → 2019-08-04 | Outpatient (CLI) | payer MEDICARE ==
[2019-08-04 19:05] LABS: African American GFR (CKD) 20.8 (60.0-200.0); Albumin 4.6 g/dL (3.80-4.90); Albumin/Globulin Ratio 2.42 (1.60-3.17); Anion Gap 13.4 mmol/L (4.00-12.00); BUN/Creat Ratio 14.4 Ratio (12.00-20.00); Calcium 8.5 mg/dL (8.7-10.3); Carbon Dioxide 28.6 mmol/L (21.6-31.8); Globulin 1.9 g/dL (1.6-3.3); Non-African American GFR(CKD) 17.9 (60.0-200.0); Potassium 3.2 mmol/L (3.5-5.5); Total Bilirubin 0.4 mg/dL (0.3-1.2); Total Protein 6.5 g/dL (6.2-8.2)
[2019-08-05 09:56] LABS: Alt. alternata IgE Class CLASS 0; Alternaria alternata IgE <0.10 kU/L (<0.10); Asperg. fumagatus IgE <0.10 kU/L (<0.10); Asperg. fumagatus IgE Class CLASS 0; Bermuda Grass IgE <0.10 kU/L (<0.10); Birch(Com.Silvr) IgE <0.10 kU/L (<0.10); Birch(Com.Silvr) IgE Class CLASS 0; Cat Epith & Dander IgE <0.10 kU/L (<0.10); Cat Epith & Dander IgE Class CLASS 0; Clad herbarum IgE <0.10 kU/L (<0.10); Clad herbarum IgE Class CLASS 0; Cockroach IgE <0.10 kU/L (<0.10); Cottonwood IgE <0.10 kU/L (<0.10); Dermato. Pteronyssinus Class CLASS 2; Dermato. Pteronyssinus IgE 2.81 kU/L (<0.10); Dermato. farinae IgE 0.83 kU/L (<0.10); Dermato. farinae IgE Class CLASS 2; Dog Dander IgE <0.10 kU/L (<0.10); Elm IgE <0.10 kU/L (<0.10); IgE (Allergen) 21.3 IU/mL (<114.0); Maple (Box Elder) IgE <0.10 kU/L (<0.10); Maple (Box Elder) IgE Class CLASS 0; Mountain Cedar IgE <0.10 kU/L (<0.10); Mountain Cedar IgE Class CLASS 0; Mouse Urine IgE Class CLASS 0; Mouse Urine Proteins,IgE <0.10 kU/L (<0.10); Nettle IgE <0.10 kU/L (<0.10); Nettle IgE Class CLASS 0; Oak IgE <0.10 kU/L (<0.10); Penicillium chrysogenum IgE <0.10 kU/L (<0.10); Penicillium chrysogenum IgE Cl CLASS 0; Rough Marshelder IgE <0.10 kU/L (<0.10); Rough Marshelder IgE Class CLASS 0; Timothy Grass IgE <0.10 kU/L (<0.10); Timothy Grass IgE Class CLASS 0; White Ash IgE Class CLASS 0
[2019-08-06 08:40] LABS: Alpha 1 Anti-Trypsin 201 mg/dL (90 - 200)
[2019-08-10 21:37] LABS: Alternaria Alternata IgG 28.1 mcg/mL (< 13.6); Aspergillus fumigatus IgG Not detected (Not detected); Aureobasidium pullulans IgG 17.2 mcg/mL (< 13.6); Cladosporium herbarium IgG 20.8 mcg/mL (< 14.7); Phoma ssp. IgG 28.1 mcg/mL (< 6.6); Saccaharomospora viridis Not detected (Not detected); Saccaharopoly. rectivirgula Not detected (Not detected)
== END ==
LOC: LABWHC1 14:37
PROVIDERS: ATTEND Internal Medicine Pulmonary Disease
DX: E21.0 Primary hyperparathyroidism (principal); J44.9 Chronic obstructive pulmonary disease, unspecified; I27.20 Pulmonary hypertension, unspecified; J45.50 Severe persistent asthma, uncomplicated; I21.9 Acute myocardial infarction, unspecified; S22.49XA Multiple fractures of ribs, unspecified side, initial encounter for closed fracture
CPT/HCPCS: 36415; 80053; 82103; 82104; 82306; 82785; 83970; 86001; 86003; 86606; 86609

== ENCOUNTER 2019-08-08 15:57 | Inpatient (IN) | payer MEDICARE ==
[2019-08-08] MEDS ORDERED: IPRATROPIUM-ALBUTEROL 3 ML NEB INHALATION STA (16:27)
[2019-08-08] MEDS ORDERED: MAGNESIUM SULFATE-D5W PMX 1 GM in DEXTROSE/WATER 1 100ML.BAG IVPB STA (16:27)
[2019-08-08] MEDS ORDERED: methylPREDNISolone SOD SUCCI 125 MG/2 ML VIAL IV STA (16:27)
--- NOTE | 2019-08-08 17:02 | ED ---
SOB HPI - General Chief Complaint: Shortness of Breath Stated Complaint: SOB, Weakness Time Seen by Provider: 08/08/19 16:00 Source: patient Mode of arrival: wheelchair Limitations: physical limitation - History of Present Illness Initial Comments: the patient is a 79-year-old female with past history of congestive heart failure, valvular disease and COPD who presents to the emergency room with reported shortness of breath. She states that she has had worsening shortness of breath over the past 2 days. It is with exertion and with rest. She admits to wheezing. She has been using her nebulizer at home without improvement in her symptoms. She is not on home oxygen. She sees Dr. KIZZY Tyler in office. last hospitalization was in June of last year. She has never been oon the ventilator for her breathing. No recent steroid use. She admits to a mild nonproductive cough. Denies any fevers or chills. No hemoptysis. She denies any lower extremity edema. No calf pain or swelling. No history of DVT or PE. No recent travel or prolonged immobility. No recent surgeries. She admits to chest tightness. No history of coronary artery disease. No nausea or vomiting. Denies any headaches or visual changes. No unilateral numbness or weakness. No ripping or tearing sensation to her back. She quit smoking 25 years ago. There are no other alleviating, precipitating or modifying factors - Related Data Home Medications Medication Instructions Recorded Confirmed Aspirin 81 mg PO DAILY 05/12/15 08/08/19 Levothyroxine Sodium [Levoxyl] 50 mcg PO DAILY 05/12/15 08/08/19 Sertraline [Zoloft] 100 mg PO BID 05/12/15 08/08/19 Ziprasidone [Geodon] 40 mg PO BID 05/12/15 08/08/19 lamoTRIgine 200 mg PO HS 05/12/15 08/08/19 Magnesium Oxide [Mag-Ox] 400 mg PO DAILY 01/17/17 08/08/19 Albuterol Inhaler [Ventolin Hfa 2 puff INHALATION RT-QID PRN 01/22/18 08/08/19 Inhaler] Allopurinol [Zyloprim] 100 mg PO DAILY 08/08/19 08/08/19 Cinacalcet [Sensipar] 30 mg PO DAILY 08/08/19 08/08/19 Ferrous Sulfate [Feosol] 325 mg PO DAILY 08/08/19 08/08/19 Furosemide [Lasix] 40 mg PO BID 08/08/19 08/08/19 L.acidoph,Paracasei, B.lactis 1 tab PO DAILY 08/08/19 08/08/19 [Probiotic] LORazepam [Ativan] 0.5 mg PO HS 08/08/19 08/08/19 Potassium Chloride 10 meq PO BID 08/08/19 08/08/19 Previous Rx's Medication Instructions Recorded Budesonide [Pulmicort] 0.5 mg INHALATION BID #60 neb 01/24/18 Allergies Allergy/AdvReac Type Severity Reaction Status Date / Time codeine Allergy Anaphylaxis Verified 08/08/19 18:44 Iodinated Contrast Media Allergy Chest Pain Verified 08/08/19 18:44 [Iodinated Contrast Media - Oral and] Iodine and Iodide Containing Allergy Anaphylaxis Verified 08/08/19 18:44 Produc Review of Systems ROS Statement: Those systems with pertinent positive or pertinent negative responses have been documented in the HPI. ROS Other: All systems not noted in ROS Statement are negative. Past Medical History Past Medical History: Asthma, Chest Pain / Angina, Heart Failure, COPD, Diabetes Mellitus, Hyperlipidemia, Hypertension, Renal Disease, Seizure Disorder, Sleep Apnea/CPAP/BIPAP, Thyroid Disorder Additional Past Medical History / Comment(s): Bipolar, colitis, asthma when younger, seizure disorder-last known seizure 1986. Anemia History of Any Multi-Drug Resistant Organisms: MRSA Date of last positivie culture/infection: 2007 MDRO Source:: abdomen Past Surgical History: Appendectomy, Bowel Resection, Cholecystectomy, Hernia Repair, Tonsillectomy, Tubal Ligation Additional Past Surgical History / Comment(s): salvador cataracts,abd hernia sx w/ mesh-2nd sx to removed mesh and had mrsa after 2nd sx in 2007, bowel sx d/t obstruction, Past Anesthesia/Blood Transfusion Reactions: Motion Sickness Additional Past Anesthesia/Blood Transfusion Reaction / Comment(s): past blood transfusion- no reaction Past Psychological History: Bipolar Smoking Status: Former smoker Past Alcohol Use History: None Reported Past Drug Use History: None Reported - Past Family History Father Family Medical History: Cancer Additional Family Medical History / Comment(s): lung cancer. all 11 siblings of father had some sort of cancer Mother Family Medical History: Congestive Heart Failure (CHF) Additional Family Medical History / Comment(s): aunts had bipolar depression General Exam Limitations: physical limitation General appearance: alert, in no apparent distress Head exam: Present: atraumatic, normocephalic, normal inspection Eye exam: Present: normal appearance, PERRL, EOMI. Absent: scleral icterus, conjunctival injection, periorbital swelling ENT exam: Present: normal exam, mucous membranes moist Neck exam: Present: normal inspection. Absent: tenderness, meningismus, lymphadenopathy Respiratory exam: Present: wheezes, rales, accessory muscle use, decreased breath sounds. Absent: respiratory distress, rhonchi, stridor Cardiovascular Exam: Present: regular rate, normal rhythm, normal heart sounds. Absent: systolic murmur, diastolic murmur, rubs, gallop, clicks GI/Abdominal exam: Present: soft, normal bowel sounds. Absent: distended, tenderness, guarding, rebound, rigid Extremities exam: Present: normal inspection, full ROM, normal capillary refill. Absent: tenderness, pedal edema, joint swelling, calf tenderness Back exam: Present: normal inspection Neurological exam: Present: alert, oriented X3, CN II-XII intact Psychiatric exam: Present: normal affect, normal mood Skin exam: Present: warm, dry, intact, normal color. Absent: rash Course Vital Signs 08/08/19 08/08/19 08/08/19 16:00 16:01 17:14 Temperature 98.0 F Pulse Rate 98 96 Pulse Rate [ Pulse Oximetery ] Respiratory 23 20 Rate Blood Pressure 111/77 Blood Pressure [Right Arm] O2 Sat by Pulse 98 Oximetry 08/08/19 08/08/19 08/08/19 17:27 17:35 18:16 Temperature Pulse Rate 95 87 99 Pulse Rate [ Pulse Oximetery ] Respiratory 18 18 Rate Blood Pressure 100/70 109/68 Blood Pressure [Right Arm] O2 Sat by Pulse 98 100 Oximetry 08/08/19 08/08/19 08/08/19 19:22 20:00 20:05 Temperature 99.7 F H 98.2 F Pulse Rate 105 H 106 H Pulse Rate [ 106 H Pulse Oximetery ] Respiratory 20 20 20 Rate Blood Pressure 100/67 111/78 Blood Pressure 106/69 [Right Arm] O2 Sat by Pulse 96 97 98 Oximetry Medical Decision Making - Medical Decision Making upon arrival the patient was placed in room 6. A thorough history and physical exam was performed. The patient is placed on 2 L of oxygen as she does have increased worker breathing. She does have audible wheezes with chest tightness. We did provide the patient with a DuoNeb breathing treatment which she states does help her breathing. Peripheral IV is established she is also given 125 g o f Solu-Medrol and a gram of magnesium. I did conduct laboratory studies and a chest x-ray. Lab studies demonstrate a troponin of 0.069. BNP of 19,200. Creatinine is 1.9 which was previously checked and was 2.5. Chest x-ray demonstrates pulmonary edema. Patient's last echo was in October 2018 for which the patient is EF less than 20. She is currently taking 40 mg of Lasix twice a day. I did provide the patient with 60 mg IV. I did recommend hospitalization. I called [facility] for admission. I will have cardiology see the patient. She will continue her breathing treatments every 4 hours. The patient remained in stable condition awaiting a bed on the floor - Lab Data Result diagrams: 08/10/19 11:02 08/11/19 06:01 Lab Results 08/08/19 08/08/19 08/08/19 Range/Units 16:52 16:52 16:52 WBC 7.3 (3.8-10.6) k/uL RBC 3.45 L (3.80-5.40) m/uL Hgb 11.0 L (11.4-16.0) gm/dL Hct 33.7 L (34.0-46.0) % MCV 97.7 (80.0-100.0) fL MCH 32.0 (25.0-35.0) pg MCHC 32.7 (31.0-37.0) g/dL RDW 16.4 H (11.5-15.5) % Plt Count 195 (150-450) k/uL Neutrophils % 78 % Lymphocytes % 16 % Monocytes % 4 % Eosinophils % 1 % Basophils % 1 % Neutrophils # 5.7 (1.3-7.7) k/uL Lymphocytes # 1.1 (1.0-4.8) k/uL Monocytes # 0.3 (0-1.0) k/uL Eosinophils # 0.1 (0-0.7) k/uL Basophils # 0.0 (0-0.2) k/uL Anisocytosis Slight Macrocytosis Slight PT (9.0-12.0) sec INR (<1.2) APTT (22.0-30.0) sec Sodium 135 L (137-145) mmol/L Potassium 4.6 (3.5-5.1) mmol/L Chloride 101 (98-107) mmol/L Carbon Dioxide 20 L (22-30) mmol/L Anion Gap 14 mmol/L BUN 31 H (7-17) mg/dL Creatinine 1.94 H (0.52-1.04) mg/dL Est GFR (CKD-EPI)AfAm 28 (>60 ml/min/1.73 sqM) Est GFR (CKD-EPI)NonAf 24 (>60 ml/min/1.73 sqM) Glucose 169 H (74-99) mg/dL Plasma Lactic Acid Carlos 2.0 (0.7-2.0) mmol/L Calcium 8.4 (8.4-10.2) mg/dL Total Bilirubin 0.8 (0.2-1.3) mg/dL AST 30 (14-36) U/L ALT 18 (4-34) U/L Alkaline Phosphatase 89 (38-126) U/L Troponin I (0.000-0.034) ng/mL NT-Pro-B Natriuret Pep pg/mL Total Protein 7.0 (6.3-8.2) g/dL Albumin 4.3 (3.5-5.0) g/dL Influenza Type A RNA (Not Detectd) Influenza Type B (PCR) (Not Detectd) 08/08/19 08/08/19 08/08/19 Range/Units 16:52 16:52 16:52 WBC (3.8-10.6) k/uL RBC (3.80-5.40) m/uL Hgb (11.4-16.0) gm/dL Hct (34.0-46.0) % MCV (80.0-100.0) fL MCH (25.0-35.0) pg MCHC (31.0-37.0) g/dL RDW (11.5-15.5) % Plt Count (150-450) k/uL Neutrophils % % Lymphocytes % % Monocytes % % Eosinophils % % Basophils % % Neutrophils # (1.3-7.7) k/uL Lymphocytes # (1.0-4.8) k/uL Monocytes # (0-1.0) k/uL Eosinophils # (0-0.7) k/uL Basophils # (0-0.2) k/uL Anisocytosis Macrocytosis PT 11.3 (9.0-12.0) sec INR 1.1 (<1.2) APTT 27.9 (22.0-30.0) sec Sodium (137-145) mmol/L Potassium (3.5-5.1) mmol/L Chloride (98-107) mmol/L Carbon Dioxide (22-30) mmol/L Anion Gap mmol/L BUN (7-17) mg/dL Creatinine (0.52-1.04) mg/dL Est GFR (CKD-EPI)AfAm (>60 ml/min/1.73 sqM) Est GFR (CKD-EPI)NonAf (>60 ml/min/1.73 sqM) Glucose (74-99) mg/dL Plasma Lactic Acid Carlos (0.7-2.0) mmol/L Calcium (8.4-10.2) mg/dL Total Bilirubin (0.2-1.3) mg/dL AST (14-36) U/L ALT (4-34) U/L Alkaline Phosphatase (38-126) U/L Troponin I 0.069 H* (0.000-0.034) ng/mL NT-Pro-B Natriuret Pep 97773 pg/mL Total Protein (6.3-8.2) g/dL Albumin (3.5-5.0) g/dL Influenza Type A RNA (Not Detectd) Influenza Type B (PCR) (Not Detectd) 08/08/19 Range/Units 17:10 WBC (3.8-10.6) k/uL RBC (3.80-5.40) m/uL Hgb (11.4-16.0) gm/dL Hct (34.0-46.0) % MCV (80.0-100.0) fL MCH (25.0-35.0) pg MCHC (31.0-37.0) g/dL RDW (11.5-15.5) % Plt Count (150-450) k/uL Neutrophils % % Lymphocytes % % Monocytes % % Eosinophils % % Basophils % % Neutrophils # (1.3-7.7) k/uL Lymphocytes # (1.0-4.8) k/uL Monocytes # (0-1.0) k/uL Eosinophils # (0-0.7) k/uL Basophils # (0-0.2) k/uL Anisocytosis Macrocytosis PT (9.0-12.0) sec INR (<1.2) APTT (22.0-30.0) sec Sodium (137-145) mmol/L Potassium (3.5-5.1) mmol/L Chloride (98-107) mmol/L Carbon Dioxide (22-30) mmol/L Anion Gap mmol/L BUN (7-17) mg/dL Creatinine (0.52-1.04) mg/dL Est GFR (CKD-EPI)AfAm (>60 ml/min/1.73 sqM) Est GFR (CKD-EPI)NonAf (>60 ml/min/1.73 sqM) Glucose (74-99) mg/dL Plasma Lactic Acid Carlos (0.7-2.0) mmol/L Calcium (8.4-10.2) mg/dL Total Bilirubin (0.2-1.3) mg/dL AST (14-36) U/L ALT (4-34) U/L Alkaline Phosphatase (38-126) U/L Troponin I (0.000-0.034) ng/mL NT-Pro-B Natriuret Pep pg/mL Total Protein (6.3-8.2) g/dL Albumin (3.5-5.0) g/dL Influenza Type A RNA Not Detected (Not Detectd) Influenza Type B (PCR) Not Detected (Not Detectd) - EKG Data EKG Comments: EKG demonstrates a normal sinus rhythm with a ventricular rate of 99. SC interval 150. QRS 150. QTC of 546. There is a left bundle branch block. No sgarbossa criteria. EKG is compared to previous and left bundle branch block was present however there is a new T-wave inversion with some ST depression in V6. It QTC is also more prolonged Disposition Clinical Impression: Congestive heart failure, Dyspnea, Systolic congestive heart failure, Diastolic congestive heart failure, Acute exacerbation of chronic obstructive pulmonary disease Disposition: ADMITTED IP TO THIS [facility] Condition: Stable Is patient prescribed a controlled substance at d/c from ED?: No Decision to Admit Reason: Admit from EC Decision Date: 08/08/19 Decision Time: 18:22
--- NOTE | 2019-08-08 17:13 | XR ---
EXAMINATION TYPE: XR chest 2V DATE OF EXAM: 08/08/2019 COMPARISON: 01/23/2018 HISTORY: Difficulty breathing TECHNIQUE: 2 views FINDINGS: Heart is moderately enlarged. There is some pulmonary vascular congestion. Thoracic aorta i s atheromatous. There is no definite pleural effusion. IMPRESSION: Mild congestive heart failure appears new compared to old exam. Moderate cardiomegaly unc hanged.
[2019-08-08 17:28] LABS: Albumin 4.3 g/dL (3.5-5.0); Calcium 8.4 mg/dL (8.4-10.2); Potassium 4.6 mmol/L (3.5-5.1); Total Bilirubin 0.8 mg/dL (0.2-1.3)
[2019-08-08 17:33] LABS: INR 1.1 (<1.2); Partial Thromboplastin Time 27.9 sec (22.0-30.0); Prothrombin Time 11.3 sec (9.0-12.0)
[2019-08-08 17:38] LABS: Anisocytosis Slight; Basophils % (A) 1 %; Eosinophils # (A) 0.1 k/uL (0-0.7); Eosinophils % (A) 1 %; HCT 33.7 % (34.0-46.0); Lymphocytes # (A) 1.1 k/uL (1.0-4.8); Lymphocytes % (A) 16 %; MCHC 32.7 g/dL (31.0-37.0); MCV 97.7 fL (80.0-100.0); Macrocytosis Slight; Mean Platelet Volume 8.5; Monocytes # (A) 0.3 k/uL (0-1.0); Monocytes % (A) 4 %; Neutrophils # (A) 5.7 k/uL (1.3-7.7); Neutrophils % (A) 78 %; Platelet Count 195 k/uL (150-450); RBC 3.45 m/uL (3.80-5.40); RDW 16.4 % (11.5-15.5); WBC 7.3 k/uL (3.8-10.6)
[2019-08-08] MEDS ORDERED: FUROSEMIDE 10 MG/ML 10 ML VIAL IV STA (18:20)
[2019-08-08] MEDS ORDERED: NALOXONE 0.4 MG/ML 1 ML VIAL IV PRN (18:25)
[2019-08-08 20:53] LABS: Glucose,Whole Blood 164 mg/dL (75-99)
[2019-08-08] MEDS: INSULIN ASPART (NovoLOG) 100 UNIT/ML VIAL SQ SCH (21:00)
[2019-08-08] MEDS: FUROSEMIDE 10 MG/ML 10 ML VIAL IV SCH (21:06)
[2019-08-08] MEDS: SERTRALINE 100 MG TAB PO SCH (21:07)
[2019-08-08] MEDS: POTASSIUM CHLORIDE ER 10 MEQ TAB.ER.PRT PO SCH (21:07)
[2019-08-08] MEDS: ZIPRASIDONE 40 MG CAP PO SCH (21:07)
[2019-08-08] MEDS: lamoTRIgine 100 MG TAB PO SCH (21:07)
[2019-08-08] MEDS: LORazepam 0.5 MG TAB PO SCH (21:07)
[2019-08-08] MEDS: IPRATROPIUM-ALBUTEROL 3 ML NEB INHALATION SCH (21:20)
[2019-08-08] MEDS: BUDESONIDE 0.5 MG/2 ML NEBU INHALATION SCH (21:20)
[2019-08-09] MEDS: IPRATROPIUM-ALBUTEROL 3 ML NEB INHALATION SCH ×6 (03:56→19:58)
[2019-08-09 06:32] LABS: Glucose,Whole Blood 154 mg/dL (75-99)
[2019-08-09] MEDS: INSULIN ASPART (NovoLOG) 100 UNIT/ML VIAL SQ SCH ×4 (06:43→21:09)
[2019-08-09] MEDS: LEVOTHYROXINE 50 MCG TAB PO SCH (06:48)
[2019-08-09] MEDS ORDERED: FAMOTIDINE 20 MG/2 ML VIAL IV SCH (09:00)
[2019-08-09] MEDS: BUDESONIDE 0.5 MG/2 ML NEBU INHALATION SCH ×2 (09:10→19:58)
[2019-08-09 09:23] LABS: Anisocytosis Slight; Basophils % (A) 1 %; Eosinophils % (A) 1 %; HCT 35.2 % (34.0-46.0); Hypochromasia Slight; Lymphocytes # (A) 0.3 k/uL (1.0-4.8); Lymphocytes % (A) 10 %; MCH 31.9 pg (25.0-35.0); MCHC 31.3 g/dL (31.0-37.0); MCV 102.1 fL (80.0-100.0); Macrocytosis Moderate; Mean Platelet Volume 9.8; Monocytes # (A) 0.1 k/uL (0-1.0); Monocytes % (A) 3 %; Neutrophils # (A) 2.8 k/uL (1.3-7.7); Neutrophils % (A) 86 %; Platelet Count 150 k/uL (150-450); RBC 3.45 m/uL (3.80-5.40); WBC 3.2 k/uL (3.8-10.6)
[2019-08-09 09:25] LABS: Calcium 8.1 mg/dL (8.4-10.2); Potassium 4.3 mmol/L (3.5-5.1)
[2019-08-09] MEDS: ASPIRIN 81 MG PO SCH (10:00)
[2019-08-09] MEDS: CINACALCET 30 MG TAB PO SCH (10:00)
[2019-08-09] MEDS: ALLOPURINOL 100 MG TAB PO SCH (10:00)
[2019-08-09] MEDS: ZIPRASIDONE 40 MG CAP PO SCH ×2 (10:00→19:52)
[2019-08-09] MEDS: SERTRALINE 100 MG TAB PO SCH ×2 (10:00→19:52)
[2019-08-09] MEDS: FERROUS SULFATE 325 MG TAB PO SCH (10:00)
[2019-08-09] MEDS: POTASSIUM CHLORIDE ER 10 MEQ TAB.ER.PRT PO SCH ×2 (10:00→19:52)
[2019-08-09] MEDS: MAGNESIUM OXIDE 400 MG TAB PO SCH (10:01)
[2019-08-09] MEDS: FUROSEMIDE 10 MG/ML 10 ML VIAL IV SCH (10:01)
[2019-08-09] MEDS: HEPARIN SODIUM,PORCINE 5,000 UNIT/ML 1 ML VIAL SQ SCH ×2 (10:01→19:51)
--- NOTE | 2019-08-09 10:28 | P.CRDCN ---
History of Present Illness Consult date: 08/09/19 Requesting physician: Eloy Vila Consult reason: congestive heart failure Chief complaint: Shortness of breath History of present illness: This is a pleasant 79-year-old female who follows regularly with Dr. Jese Tyler in the office. She has a known history of hypertension, hyperlipidemia, chronic kidney disease, diabetes, asthma, hypothyroidism, severe mitral regurgitation. She underwent cardiac catheterization in December 2016 which revealed no significant obstructive disease. She also has a history of nonischemic cardiomyopathy her most recent echo was performed in December 2017 which revealed an ejection fraction of 30-35%, severe global hypokinesia. Severe mitral regurgitation and moderate tricuspid regurgitation. She presents to the hospital on this occasion with symptoms of progressively worsening shortness of breath. She states that on she began to get short of breath and progressively worsened since that time. Positive PND and orthopnea. Chest x- ray on arrival here showed congestive heart failure. Her EKG showed a normal sinus rhythm with a left bundle-branch block pattern, nonspecific ST-T wave changes. Blood pressure 95/60 with a heart rate in the 80s to 90s, 97% on 2 L of oxygen. Admission labs, white blood cell count 7.3, hemoglobin 11, platelet count 195. Sodium 135, potassium 4.6, BUN 31, creatinine 1.9. BNP level on arrival 19,200. Troponins 0.069, 0.058, 0.063. Patient was initiated on IV Lasix on arrival here, she's been diuresing well. At the time of my examination this morning patient states that her breathing has already significantly improved from arrival here. Past Medical History Past Medical History: Asthma, Chest Pain / Angina, Heart Failure, COPD, Diabetes Mellitus, Hyperlipidemia, Hypertension, Renal Disease, Seizure Disorder, Sleep Apnea/CPAP/BIPAP, Thyroid Disorder Additional Past Medical History / Comment(s): Bipolar, colitis, asthma when yo mary, seizure disorder-last known seizure 1986. Anemia History of Any Multi-Drug Resistant Organisms: MRSA Date of last positivie culture/infection: 2007 MDRO Source:: abdomen Past Surgical History: Appendectomy, Bowel Resection, Cholecystectomy, Hernia Repair, Tonsillectomy, Tubal Ligation Additional Past Surgical History / Comment(s): salvador cataracts,abd hernia sx w/ mesh-2nd sx to removed mesh and had mrsa after 2nd sx in 2007, bowel sx d/t obstruction, Past Anesthesia/Blood Transfusion Reactions: Motion Sickness Additional Past Anesthesia/Blood Transfusion Reaction / Comment(s): past blood transfusion- no reaction Past Psychological History: Bipolar Smoking Status: Former smoker Past Alcohol Use History: None Reported Past Drug Use History: None Reported - Past Family History Father Family Medical History: Cancer Additional Family Medical History / Comment(s): lung cancer. all 11 siblings of father had some sort of cancer Mother Family Medical History: Congestive Heart Failure (CHF) Additional Family Medical History / Comment(s): aunts had bipolar depression Medications and Allergies Home Medications Medication Instructions Recorded Confirmed Type Aspirin 81 mg PO DAILY 05/12/15 08/08/19 History Levothyroxine Sodium [Levoxyl] 50 mcg PO DAILY 05/12/15 08/08/19 History Sertraline [Zoloft] 100 mg PO BID 05/12/15 08/08/19 History Ziprasidone [Geodon] 40 mg PO BID 05/12/15 08/08/19 History lamoTRIgine 200 mg PO HS 05/12/15 08/08/19 History Magnesium Oxide [Mag-Ox] 400 mg PO DAILY 01/17/17 08/08/19 History Albuterol Inhaler [Ventolin Hfa 2 puff INHALATION RT-QID PRN 01/22/18 08/08/19 History Inhaler] Budesonide [Pulmicort] 0.5 mg INHALATION BID #60 neb 01/24/18 08/08/19 Rx Allopurinol [Zyloprim] 100 mg PO DAILY 08/08/19 08/08/19 History Cinacalcet [Sensipar] 30 mg PO DAILY 08/08/19 08/08/19 History Ferrous Sulfate [Feosol] 325 mg PO DAILY 08/08/19 08/08/19 History Furosemide [Lasix] 40 mg PO BID 08/08/19 08/08/19 History L.acidoph,Paracasei, B.lactis 1 tab PO DAILY 08/08/19 08/08/19 History [Probiotic] LORazepam [Ativan] 0.5 mg PO HS 08/08/19 08/08/19 History Potassium Chloride 10 meq PO BID 08/08/19 08/08/19 History Allergies Allergy/AdvReac Type Severity Reaction Status Date / Time codeine Allergy Anaphylaxis Verified 08/08/19 18:44 Iodinated Contrast Media Allergy Chest Pain Verified 08/08/19 18:44 [Iodinated Contrast Media - Oral and] Iodine and Iodide Containing Allergy Anaphylaxis Verified 08/08/19 18:44 Produc Physical Exam Vitals: Vital Signs Temp Pulse Pulse Resp BP BP Pulse Ox 08/09/19 09:22 90 08/09/19 09:10 90 98 08/09/19 04:00 97.7 F 88 18 95/64 97 08/09/19 03:30 18 08/09/19 00:00 97.8 F 94 18 112/77 98 08/08/19 21:20 90 08/08/19 20:05 98.2 F 106 H 20 111/78 98 08/08/19 20:00 99.7 F H 106 H 20 106/69 97 08/08/19 19:22 105 H 20 100/67 96 08/08/19 18:16 99 18 109/68 100 08/08/19 17:35 87 18 100/70 98 08/08/19 17:27 95 08/08/19 17:14 96 08/08/19 16:01 98.0 F 98 20 111/77 98 08/08/19 16:00 23 Intake and Output 08/08/19 08/09/19 08/09/19 22:59 06:59 14:59 Intake Total 200 Output Total 1000 Balance -800 Intake: Oral 200 Output: Urine 1000 Other: Weight 50.802 kg 50.8 kg PHYSICAL EXAMINATION: GENERAL: 79-year-old female in no acute distress at the time of my examination HEENT: Head is atraumatic, normocephalic. Pupils equal, round. Sclera anicteric. Conjunctiva are clear. Mucous membranes of the mouth are moist. Neck is supple. There is elevated jugular venous pressure. No carotid bruit is heard. HEART EXAMINATION: Heart S1 and S2 with holosystolic murmur is heard at the apex CHEST EXAMINATION: Lungs are clear with diminished air entry to the bases ABDOMEN: Soft, nontender. Bowel sounds are heard. No organomegaly noted. EXTREMITIES: 2+ peripheral pulses with no evidence of peripheral edema and no calf tenderness noted. NEUROLOGIC patient is awake, alert and oriented 3 . . Results 08/09/19 04:54 08/09/19 04:54 Cardiac Enzymes 08/08/19 08/08/19 08/08/19 Range/Units 16:52 16:52 23:01 AST 30 (14-36) U/L Troponin I 0.069 H* 0.058 H* (0.000-0.034) ng/mL 08/09/19 Range/Units 04:57 AST (14-36) U/L Troponin I 0.063 H* (0.000-0.034) ng/mL Coagulation 08/08/19 Range/Units 16:52 PT 11.3 (9.0-12.0) sec APTT 27.9 (22.0-30.0) sec CBC 08/08/19 08/09/19 Range/Units 16:52 04:54 WBC 7.3 3.2 L (3.8-10.6) k/uL RBC 3.45 L 3.45 L (3.80-5.40) m/uL Hgb 11.0 L 11.0 L (11.4-16.0) gm/dL Hct 33.7 L 35.2 (34.0-46.0) % Plt Count 195 150 (150-450) k/uL Comprehensive Metabolic Panel 08/08/19 08/09/19 Range/Units 16:52 04:54 Sodium 135 L 137 (137-145) mmol/L Potassium 4.6 4.3 (3.5-5.1) mmol/L Chloride 101 102 (98-107) mmol/L Carbon Dioxide 20 L 24 (22-30) mmol/L BUN 31 H 33 H (7-17) mg/dL Creatinine 1.94 H 2.05 H (0.52-1.04) mg/dL Glucose 169 H 171 H (74-99) mg/dL Calcium 8.4 8.1 L (8.4-10.2) mg/dL AST 30 (14-36) U/L ALT 18 (4-34) U/L Alkaline Phosphatase 89 (38-126) U/L Total Protein 7.0 (6.3-8.2) g/dL Albumin 4.3 (3.5-5.0) g/dL Current Medications Generic Name Dose Route Start Last Admin Trade Name Freq PRN Reason Stop Dose Admin Albuterol/Ipratropium 3 ml 08/09/19 00:00 08/09/19 09:10 Duoneb 0.5 Mg-3 Mg/3 Ml Soln INHALATION 3 ml RT-Q4H GELA Administration Allopurinol 100 mg 08/09/19 09:00 08/09/19 10:00 Zyloprim PO 100 mg DAILY GELA Administration Aspirin 81 mg 08/09/19 09:00 08/09/19 10:00 Aspirin PO 81 mg DAILY GELA Administration Budesonide 0.5 mg 08/08/19 20:00 08/09/19 09:10 Pulmicort INHALATION 0.5 mg RT-BID GELA Administration Cinacalcet 30 mg 08/09/19 09:00 08/09/19 10:00 Sensipar PO 30 mg DAILY GELA Administration Famotidine 20 mg 08/09/19 09:00 08/09/19 10:01 Pepcid IV 20 mg Q12HR GELA Administration Ferrous Sulfate 325 mg 08/09/19 09:00 08/09/19 10:00 Feosol PO 325 mg DAILY GELA Administration Furosemide 60 mg 08/08/19 21:00 08/09/19 10:01 Lasix IV 60 mg BID GELA Administration Heparin Sodium (Porcine) 5,000 unit 08/09/19 09:00 08/09/19 10:01 Heparin SQ 5,000 unit Q12HR GELA Administration Insulin Aspart 0 unit 08/08/19 21:00 08/09/19 06:43 Novolog SQ Not Given ACHS [facility] Protocol Lamotrigine 200 mg 08/08/19 21:00 08/08/19 21:07 Lamictal PO 200 mg HS GELA Administration Levothyroxine Sodium 50 mcg 08/09/19 06:30 08/09/19 06:48 Synthroid PO 50 mcg DAILY@0630 GELA Administration Lorazepam 0.5 mg 08/08/19 21:00 08/08/19 21:07 Ativan PO 0.5 mg HS GELA Administration Magnesium Oxide 400 mg 08/09/19 09:00 08/09/19 10:01 Mag-Ox PO 400 mg DAILY GELA Administration Naloxone HCl 0.2 mg 08/08/19 18:25 Narcan IV Q2M PRN Opioid Reversal Potassium Chloride 10 meq 08/08/19 21:00 08/09/19 10:00 K-Dur 10 PO 10 meq BID GELA Administration Sertraline HCl 100 mg 08/08/19 21:00 08/09/19 10:00 Zoloft PO 100 mg BID GELA Administration Ziprasidone 40 mg 08/08/19 21:00 08/09/19 10:00 Geodon PO 40 mg BID GELA Administration Intake and Output 08/08/19 08/09/19 08/09/19 22:59 06:59 14:59 Intake Total 200 Output Total 1000 Balance -800 Intake: Oral 200 Output: Urine 1000 Other: Weight 50.802 kg 50.8 kg 08/09/19 04:54 08/09/19 04:54 EKG Interpretations (text) EKG shows a normal sinus rhythm with a left bundle-branch block pattern and nonspecific ST-T wave change Assessment and Plan Plan: Assessment and plan #1 systolic congestive heart failure acute on chronic #2 nonischemic cardiomyopathy, documented ejection fraction a year ago 30-35% #3 severe mitral regurgitation #4 chronic kidney disease #5 diabetes #6 history of hypertension #7 hypothyroidism #8 sleep apnea Plan We will continue current dose of IV Lasix, obtain a repeat echocardiogram with Doppler study. Initiate a low-dose of beta abdoul. In consideration, patient would be a good candidate for bi- V AICD. I f B/P improves consider Entresto. DNP note has been reviewed, I agree with a documented findings and plan of care. Patient was seen and examined.
--- NOTE | 2019-08-09 11:04 | P.HPIM ---
History of Present Illness this is a pleasant 79 years old female with past medical history of COPD/asthma, heart failure and severe cardiomyopathy, diabetes mellitus, hypertension, hyperlipidemia, seizure disorder, sleep apnea on CPAP/BiPAP, hypothyroidism, bipolar disorder, anemia. Patient presents because of progressive dyspnea over 3-4 days with no associated cough or chest pain. Patient at baseline is not on home oxygen and on the presentation on admission patient has low-grade temperature of 99.7. Vitas looks stable, blood pressure 95/64 early this morning, later on went up to 100/70. Patient saturating 97% on 2 L oxygen via NC.labs show an unremarkable CBC, INR,BMP showing creatinine of 1.9, baseline is 1.5-2.1. Elevated troponin at 0.06, 0.08 and 0.06. Influenza was is negative.EKG showing normal sinus rhythm at 99 bpm and left bundle-branch block with QTC of 546. Chest x-ray: Mild congestive heart failure in the emergency room patient received 1 dose of Lasix 60 mg and 1 dose of Solu- Medrol 125 mg Review of Systems CONSTITUTIONAL: No fever, no malaise, no fatigue. HEENT: No recent visual problems or hearing problems. Denied any sore throat. CARDIOVASCULAR: No orthopnea, PND, no palpitations, no syncope. PULMONARY: No shortness of breath, no cough, no hemoptysis. GASTROINTESTINAL: No diarrhea, no nausea, no vomiting, no abdominal pain. Normoactive bowel sounds. NEUROLOGICAL: No headaches, no weakness, no numbness. HEMATOLOGICAL: Denies any bleeding or petechiae. GENITOURINARY: Denies any burning micturition, frequency, or urgency. MUSCULOSKELETAL/RHEUMATOLOGICAL: Denies any joint pain, swelling, or any muscle pain. ENDOCRINE: Denies any polyuria or polydipsia. Past Medical History Past Medical History: Asthma, Chest Pain / Angina, Heart Failure, COPD, Diabetes Mellitus, Hyperlipidemia, Hypertension, Renal Disease, Seizure Disorder, Sleep Apnea/CPAP/BIPAP, Thyroid Disorder Additional Past Medical History / Comment(s): Bipolar, colitis, asthma when younger, seizure disorder-last known seizure 1986. Anemia History of Any Multi-Drug Resistant Organisms: MRSA Date of last positivie culture/infection: 2007 MDRO Source:: abdomen Past Surgical History: Appendectomy, Bowel Resection, Cholecystectomy, Hernia Repair, Tonsillectomy, Tubal Ligation Additional Past Surgical History / Comment(s): salvador cataracts,abd hernia sx w/ mesh-2nd sx to removed mesh and had mrsa after 2nd sx in 2007, bowel sx d/t obstruction, Past Anesthesia/Blood Transfusion Reactions: Motion Sickness Additional Past Anesthesia/Blood Transfusion Reaction / Comment(s): past blood transfusion- no reaction Past Psychological History: Bipolar Smoking Status: Former smoker Past Alcohol Use History: None Reported Past Drug Use History: None Reported - Past Family History Father Family Medical History: Cancer Additional Family Medical History / Comment(s): lung cancer. all 11 siblings of father had some sort of cancer Mother Family Medical History: Congestive Heart Failure (CHF) Additional Family Medical History / Comment(s): aunts had bipolar depression Medications and Allergies Home Medications Medication Instructions Recorded Confirmed Type Aspirin 81 mg PO DAILY 05/12/15 08/08/19 History Levothyroxine Sodium [Levoxyl] 50 mcg PO DAILY 05/12/15 08/08/19 History Sertraline [Zoloft] 100 mg PO BID 05/12/15 08/08/19 History Ziprasidone [Geodon] 40 mg PO BID 05/12/15 08/08/19 History lamoTRIgine 200 mg PO HS 05/12/15 08/08/19 History Magnesium Oxide [Mag-Ox] 400 mg PO DAILY 01/17/17 08/08/19 History Albuterol Inhaler [Ventolin Hfa 2 puff INHALATION RT-QID PRN 01/22/18 08/08/19 History Inhaler] Budesonide [Pulmicort] 0.5 mg INHALATION BID #60 neb 01/24/18 08/08/19 Rx Allopurinol [Zyloprim] 100 mg PO DAILY 08/08/19 08/08/19 History Cinacalcet [Sensipar] 30 mg PO DAILY 08/08/19 08/08/19 History Ferrous Sulfate [Feosol] 325 mg PO DAILY 08/08/19 08/08/19 History Furosemide [Lasix] 40 mg PO BID 08/08/19 08/08/19 History L.acidoph,Paracasei, B.lactis 1 tab PO DAILY 08/08/19 08/08/19 History [Probiotic] LORazepam [Ativan] 0.5 mg PO HS 08/08/19 08/08/19 History Potassium Chloride 10 meq PO BID 08/08/19 08/08/19 History Allergies Allergy/AdvReac Type Severity Reaction Status Date / Time codeine Allergy Anaphylaxis Verified 08/08/19 18:44 Iodinated Contrast Media Allergy Chest Pain Verified 08/08/19 18:44 [Iodinated Contrast Media - Oral and] Iodine and Iodide Containing Allergy Anaphylaxis Verified 08/08/19 18:44 Produc Physical Exam Vitals: Vital Signs Temp Pulse Pulse Resp BP BP Pulse Ox 08/09/19 04:00 97.7 F 88 18 95/64 97 08/09/19 03:30 18 08/09/19 00:00 97.8 F 94 18 112/77 98 08/08/19 21:20 90 08/08/19 20:05 98.2 F 106 H 20 111/78 98 08/08/19 20:00 99.7 F H 106 H 20 106/69 97 08/08/19 19:22 105 H 20 100/67 96 08/08/19 18:16 99 18 109/68 100 08/08/19 17:35 87 18 100/70 98 08/08/19 17:27 95 08/08/19 17:14 96 08/08/19 16:01 98.0 F 98 20 111/77 98 08/08/19 16:00 23 Intake and Output 08/08/19 08/08/19 08/09/19 14:59 22:59 06:59 Intake Total 200 Output Total 1000 Balance -800 Intake: Oral 200 Output: Urine 1000 Other: Weight 50.802 kg 50.8 kg GENERAL: The patient is alert and oriented x3, not in any acute distress. Well developed, well nourished. HEENT: Pupils are round and equally reacting to light. EOMI. No scleral icterus. No conjunctival pallor. Normocephalic, atraumatic. No pharyngeal erythema. No thyromegaly. CARDIOVASCULAR: S1 and S2 present. No murmurs, rubs, or gallops. -PULMONARY: Chest is clear to auscultation, no wheezing . Bilateral basal crepitation ABDOMEN: Soft, nontender, nondistended, normoactive bowel sounds. No palpable organomegaly. MUSCULOSKELETAL: No joint swelling or deformity. EXTREMITIES: No cyanosis, clubbing, or pedal edema. NEUROLOGICAL: Gross neurological examination did not reveal any focal deficits. SKIN: No rashes. No petechiae Results CBC & Chem 7: 08/09/19 04:54 08/09/19 04:54 Labs: Abnormal Lab Results - Last 24 Hours (Table) 08/08/19 08/08/19 08/08/19 Range/Units 16:52 16:52 16:52 RBC 3.45 L (3.80-5.40) m/uL Hgb 11.0 L (11.4-16.0) gm/dL Hct 33.7 L (34.0-46.0) % RDW 16.4 H (11.5-15.5) % Sodium 135 L (137-145) mmol/L Carbon Dioxide 20 L (22-30) mmol/L BUN 31 H (7-17) mg/dL Creatinine 1.94 H (0.52-1.04) mg/dL Glucose 169 H (74-99) mg/dL POC Glucose (mg/dL) (75-99) mg/dL Troponin I 0.069 H* (0.000-0.034) ng/mL 08/08/19 08/08/19 08/09/19 Range/Units 20:52 23:01 04:57 RBC (3.80-5.40) m/uL Hgb (11.4-16.0) gm/dL Hct (34.0-46.0) % RDW (11.5-15.5) % Sodium (137-145) mmol/L Carbon Dioxide (22-30) mmol/L BUN (7-17) mg/dL Creatinine (0.52-1.04) mg/dL Glucose (74-99) mg/dL POC Glucose (mg/dL) 164 H (75-99) mg/dL Troponin I 0.058 H* 0.063 H* (0.000-0.034) ng/mL Thrombosis Risk Factor Assmnt - Choose All That Apply Each Risk Factor Represents 3 Points: Age 75 years or older Thrombosis Risk Factor Assessment Total Risk Factor Score: 3 Thrombosis Risk Factor Assessment Level: Moderate Risk Assessment and Plan Assessment: acute on chronic systolic heart failure, ejection fraction 30-35% chronically elevated troponin EKG showing left bundle-branch block with prolonged QTC Diabetes mellitus Hypertension Hyperlipidemia seizure disorder sleep apnea on CPAP/BiPAP Hypothyroidism Bipolar disorder COPD/asthma Plan: this is a pleasant 79 years old female who presents with acute heart failure. Continue with diuretics. Cardiology consult. Continue with metoprolol, aspirin Labs and medication were reviewed.. Continue same treatment. Continue with symptomatic treatment. Resume home medication. Monitor lytes and vitals. DVT and GI prophylaxis. Further recommendations of the clinical course of the patient DVT prophylaxis: Subcutaneous heparin GI Prophylaxis: Pepcid PT/OT: Pending Prognosis is guarded Dr. Allen will resume the care of the patient tomorrow
[2019-08-09 12:31] LABS: Glucose,Whole Blood 163 mg/dL (75-99)
[2019-08-09] MEDS: METOPROLOL TARTRATE 12.5 MG TAB PO SCH ×2 (13:04→13:17)
[2019-08-09] MEDS ORDERED: SODIUM CHLORIDE 0.9% 500 ML 250 ML IV ONE (17:04)
[2019-08-09 17:08] LABS: Glucose,Whole Blood 162 mg/dL (75-99)
[2019-08-09] MEDS: ONDANSETRON 4 MG/2 ML VIAL IVP PRN (17:44)
[2019-08-09] MEDS ORDERED: SODIUM CHLORIDE 0.9% 500 ML 200 ML IV ONE (19:44)
[2019-08-09] MEDS: lamoTRIgine 100 MG TAB PO SCH (19:51)
[2019-08-09 20:56] LABS: Glucose,Whole Blood 214 mg/dL (75-99)
[2019-08-09] MEDS: LORazepam 0.5 MG TAB PO SCH (22:02)
[2019-08-10] MEDS: IPRATROPIUM-ALBUTEROL 3 ML NEB INHALATION SCH ×6 (00:39→19:38)
[2019-08-10 05:51] LABS: Glucose,Whole Blood 66 mg/dL (75-99)
[2019-08-10] MEDS: INSULIN ASPART (NovoLOG) 100 UNIT/ML VIAL SQ SCH ×4 (05:56→20:38)
[2019-08-10] MEDS: LEVOTHYROXINE 50 MCG TAB PO SCH (06:01)
[2019-08-10 06:09] LABS: Glucose,Whole Blood 79 mg/dL (75-99)
[2019-08-10] MEDS: BUDESONIDE 0.5 MG/2 ML NEBU INHALATION SCH ×2 (07:55→19:38)
[2019-08-10] MEDS: HEPARIN SODIUM,PORCINE 5,000 UNIT/ML 1 ML VIAL SQ SCH ×2 (08:51→20:46)
[2019-08-10] MEDS: POTASSIUM CHLORIDE ER 10 MEQ TAB.ER.PRT PO SCH (08:52)
[2019-08-10] MEDS: FERROUS SULFATE 325 MG TAB PO SCH (08:52)
[2019-08-10] MEDS: MAGNESIUM OXIDE 400 MG TAB PO SCH (08:52)
[2019-08-10] MEDS: ZIPRASIDONE 40 MG CAP PO SCH ×2 (08:52→20:46)
[2019-08-10] MEDS: CINACALCET 30 MG TAB PO SCH (08:52)
[2019-08-10] MEDS: FAMOTIDINE 20 MG TAB PO SCH (08:52)
[2019-08-10] MEDS: ASPIRIN 81 MG PO SCH (08:52)
[2019-08-10] MEDS: SERTRALINE 100 MG TAB PO SCH ×2 (08:52→20:46)
[2019-08-10] MEDS: ALLOPURINOL 100 MG TAB PO SCH (08:52)
[2019-08-10] MEDS: ONDANSETRON 4 MG/2 ML VIAL IVP PRN (10:31)
[2019-08-10] MEDS ORDERED: FUROSEMIDE 10 MG/ML 4 ML VIAL IV SCH (11:00)
--- NOTE | 2019-08-10 11:07 | P.PN ---
Subjective Progress Note Date: 08/10/19 this is a pleasant 79 years old female with past medical history of COPD/asthma, heart failure and severe cardiomyopathy, diabetes mellitus, hypertension, hyperlipidemia, seizure disorder, sleep apnea on CPAP/BiPAP, hypothyroidism, bipolar disorder, anemia. Patient presents because of progressive dyspnea over 3-4 days with no associated cough or chest pain. Patient at baseline is not on home oxygen and on the presentation on admission patient has low-grade temperature of 99.7. Vitas looks stable, blood pressure 95/64 early this morning, later on went up to 100/70. Patient saturating 97% on 2 L oxygen via NC.labs show an unremarkable CBC, INR,BMP showing creatinine of 1.9, baseline is 1.5-2.1. Elevated troponin at 0.06, 0.08 and 0.06. Influenza was is negative.EKG showing normal sinus rhythm at 99 bpm and left bundle-branch block with QTC of 546. Chest x-ray: Mild congestive heart failure in the emergency room patient received 1 dose of Lasix 60 mg and 1 dose of Solu- Medrol 125 mg 08/10/2019 patient reports a rough night, not feeling well this morning. Systolic blood pressures low 80s.complaints of nausea, vomiting. EKG changes with wide-complex tachycardia.EKG pending. labs ordered/pending.denies chest pain, abdominal pain or cough.maintaining O2 sats of 97% on 2 L nasal cannula. Objective - Vital Signs Vital signs: Vital Signs Temp 97.6 F 08/10/19 08:00 Pulse 80 08/10/19 08:12 Resp 18 08/10/19 08:00 BP 82/52 08/10/19 08:00 Pulse Ox 97 08/10/19 08:00 Intake & Output 08/09/19 08/10/19 08/10/19 18:59 06:59 18:59 Intake Total 720 Output Total 400 50 Balance 320 -50 Weight 50.8 kg 53.7 kg Intake: Oral 720 Output: Urine 400 50 Other: Voiding Method Bedside Commode # Voids 1 - Exam GENERAL: The patient is alert and oriented x3,no acute distress, tired, nauseated HEENT: Pupils are round and equally reacting to light. EOMI. No scleral icterus. No conjunctival pallor. Normocephalic, atraumatic. No pharyngeal erythema. No thyromegaly. CARDIOVASCULAR: S1 and S2 present. systolic murmur, no rubs, or gallops. PULMONARY: Bilateral basal crepitation ABDOMEN: Soft, nontender, nondistended, normoactive bowel sounds. No palpable organomegaly. MUSCULOSKELETAL: No joint swelling or deformity. EXTREMITIES: No cyanosis, clubbing, or pedal edema. no calf tenderness. NEUROLOGICAL: Gross neurological examination did not reveal any focal deficits. SKIN: No rashes. No petechiae - Labs CBC & Chem 7: 08/09/19 04:54 08/09/19 04:54 Labs: Abnormal Lab Results - Last 24 Hours (Table) 08/09/19 08/09/19 08/09/19 Range/Units 12:05 16:50 20:49 POC Glucose (mg/dL) 163 H 162 H 214 H (75-99) mg/dL 08/10/19 Range/Units 05:50 POC Glucose (mg/dL) 66 L (75-99) mg/dL Assessment and Plan Assessment: acute on chronic systolic heart failure, ejection fraction 30-35% severe mitral regurgitation Nonischemic cardiomyopathy wide complex tachycardia, follow-up EKG pending. chronically elevated troponin EKG showing left bundle-branch block with prolonged QTC acute onchronic kidney disease,stage IV,Baseline creatinine around 1.6. Diabetes mellitus Hypertension Hyperlipidemia seizure disorder sleep apnea on CPAP/BiPAP Hypothyroidism Bipolar disorder COPD/asthma plan: Continue on current medication regime ,metoprolol, aspirin,monitoring and symptomatic treatment. F/U EKG ordered with further cardiology recommendations pending. labs pending.Diuretics as per cardiology.GI and DVT prophylaxis in place with subcu heparin, Pepcid. PT/OT. Prognosis guarded given multiple complex medical issues. The impression and plan of care has been dictated as directed. : I performed a history and examination of this patient, discussed the same with the dictator. I agree with the dictator's note ,documented as a scribe. Any additional findings or plans will be noted.
[2019-08-10 11:23] LABS: Anisocytosis Slight; Basophils % (A) 0 %; Eosinophils % (A) 0 %; HCT 38.2 % (34.0-46.0); Hypochromasia Moderate; Lymphocytes # (A) 0.7 k/uL (1.0-4.8); Lymphocytes % (A) 8 %; MCH 32.3 pg (25.0-35.0); MCHC 31.5 g/dL (31.0-37.0); MCV 102.6 fL (80.0-100.0); Macrocytosis Moderate; Monocytes # (A) 0.4 k/uL (0-1.0); Monocytes % (A) 4 %; Neutrophils # (A) 8.4 k/uL (1.3-7.7); Neutrophils % (A) 87 %; Platelet Count 184 k/uL (150-450); RBC 3.73 m/uL (3.80-5.40); RDW 16.7 % (11.5-15.5); WBC 9.7 k/uL (3.8-10.6)
[2019-08-10 11:30] LABS: Calcium 7.9 mg/dL (8.4-10.2); Magnesium 2.5 mg/dL (1.6-2.3)
[2019-08-10] MEDS ORDERED: SODIUM CHLORIDE 0.9% 500 ML 400 ML IV ONE (11:31)
[2019-08-10 11:35] LABS: Glucose,Whole Blood 71 mg/dL (75-99)
[2019-08-10] MEDS: SODIUM CHLORIDE 0.9% 1,000 ML IV SCH ×2 (11:37→20:48)
[2019-08-10 11:43] LABS: Potassium 6.9 mmol/L (3.5-5.1)
[2019-08-10] MEDS ORDERED: SODIUM BICARB 8.4% 50 ML SYR (1 MEQ/ML) IV ONE (12:29)
[2019-08-10] MEDS ORDERED: ALBUTEROL NEB (CONC) 2.5 MG/0.5 ML INHALATION ONE (12:29)
[2019-08-10] MEDS ORDERED: SODIUM POLYSTYRENE SULFONATE 15 GM/60 ML BOTTLE PO STA (12:31)
--- NOTE | 2019-08-10 12:49 | PN ---
PROGRESS NOTE This patient was admitted with the symptoms suggestive of congestive cardiac failure. Patient got 2 doses of IV Lasix yesterday. During the night, the patient has been nauseated and she had a couple of vomiting. She denies any abdominal pain and there is no fever or chills. Patient's monitor was not showing intermittent episodes of slow ventricular tachycardia. The patient's blood pressure is 83/51 mmHg. HEART: S1 and S2 heard. Lungs are clinically clear to auscultation and percussion. Patient's labs are being awaited. The patient's lab shows potassium of 6.9. BUN is 48 and creatinine was 3.51. The potassium was 4.3 yesterday and creatinine was 2.05. FINAL IMPRESSION: This patient has developed acute on chronic renal failure with hyperkalemia. Patient's rhythm disorder secondary to hyperkalemia. We will get nephrology consult and give the patient 1 amp of bicarb as well as insulin and glucose. We will have primary care manage the hyperkalemia. The patient will be given IV fluids at 100 mL/hour. MMODL / IJN: [id number] /
[2019-08-10] MEDS ORDERED: INSULIN REGULAR 100 UNIT/ML VIAL IV ONE (13:00)
[2019-08-10] MEDS ORDERED: CALCIUM GLUCONATE 1 GM in SODIUM CHLORIDE 0.9% 100 ML IVPB ONE (13:00)
--- NOTE | 2019-08-10 13:24 | XR ---
EXAMINATION TYPE: XR chest 1V portable DATE OF EXAM: 08/10/2019 HISTORY: Shortness of breath. COMPARISON: 08/08/2019 TECHNIQUE: Single view of the chest is submitted. FINDINGS: Demonstrated are scattered senescent parenchymal change. There is cardiomegaly with pulmonary venous congestion and patchy right perihilar infiltrate. Correla te for mild CHF. Hilar and mediastinal structures are within normal limits. Degenerative changes are seen of the dorsal spine. IMPRESSION: 1. There is cardiomegaly with pulmonary venous congestion and patchy right perihilar infiltrate. Cor relate for mild CHF.
[2019-08-10 14:27] LABS: Hemoglobin A1C 5.6 % (4.0-6.0)
--- NOTE | 2019-08-10 14:36 | CDI ---
Documentation Clarification Form Date: 08/10/2019 2:29:47 PM From: Mary Boogie CCS, CCDS Admit Date: 08/08/2019 6:25:00 PM Patient Name: Caitlin Kessler Visit Number: [id number] Discharge Date: ATTENTION: The Clinical Documentation Specialists (CDI) and [facility] Coding Staff appreciate your assistance in clarifying documentation. Please respond to the clarification below the line at the bottom and electronically sign. The CDI & [facility] Coding staff will review the response and follow-up if needed. Please note: Queries are made part of the Legal Health Record. If you have any questions, please contact the author of this message via ITS. Dr. Marylou Mccormick: Per the cardiology progress note on 08/10: "This patient has developed acute on chronic renal failure with hyperkalemia." History/Risk Factors: Chronic systolic CHF, DM, Hypertension, Hyperlipidemia, Seizure disorder, Sleep apnea, Hypothryoidism & COPD. Clinical Indicators: Presented with SOB, diagnosed with acute on chronic combined systolic & diastolic heart failure & acute exacerbation of COPD. Current BUN: 31 - 33; Creatinine 1.94 - 2.05; GFR 24 - 23 Patients Baseline Creatinine of 1.9, baseline is 1.5-2.1, (per 08/10 progress note). Treatment: INH Albuterol, IV mag Sulfate, IV Solumedrol, IV Lasix, IV fluid bolus. In order to capture the severity of condition, please clarify if the condition signifies: CKD Stage 1 (GFR > 90) CKD Stage 2 (GFR 60-89) CKD Stage 3 (GFR 30-59) CKD Stage 4 (GFR 15-29) CKD Stage 5 (GFR <15) Other, please specify Unable to determine (Last Revision: November 2017) MTDD
--- NOTE | 2019-08-10 15:11 | P.NPCON ---
History of Present Illness - Reason for Consult acute renal failure, chronic renal failure, hyperkalemia - History of Present Illness Reason for consultation: Acute kidney injury on chronic kidney disease History of present illness: Patient is a 79-year-old female seen in renal consultation for acute kidney injury on chronic kidney disease. Patient has chronic kidney disease stage III with baseline creatinine in the range of 1.4-1.7 secondary to nephrosclerosis. Patient presented to the hospital with shortness of breath and generalized weakness. She's also been having episodes of vomiting. Oral intake is poor. She has been voiding. No hematuria or dysuria. Patient was being diuresed.this morning the patient was quite hypotensive with systolic blood pressure in the 70s. Patient's renal function also worsened. Creatinine 3.5 today. Additionally her potassium level was up to 6.9. This was repeated and it came back at 6.5. Hyperkalemia was medically treated with Kayexalate, sodium bi carbonate, nebulized albuterol as well as IV insulin. Patient also received 1 g of IV calcium gluconate. She was receiving potassium supplementation which has been discontinued. Diuretics have been discontinued. She received a 400 mL bolus of normal saline and is now maintained on normal saline at 75 mL an hour. Patient does have history of diabetes mellitus.blood sugars have been fairly controlled. No chest pain. No edema at this time.patient does have history of systolic CHF with ejection fraction of less than 20% with severe mitral regurgitation. Vital signs are stable. Blood pressure on the lower side. General: The patient appeared well nourished and normally developed. HEENT: Head exam is unremarkable. Neck is without jugular venous distension. LUNGS: Lungs are clear to auscultation and percussion. Breath sounds decreased. HEART: Rate and Rhythm are regular. First and second heart sounds normal. No murmurs, rubs or gallops. ABDOMEN: Abdominal exam reveals normal bowel sounds. Non-tender and non- distended. No evidence of peritonitis. EXTREMITITES: No clubbing, cyanosis, or edema. Past Medical History Past Medical History: Asthma, Chest Pain / Angina, Heart Failure, COPD, Diabetes Mellitus, Hyperlipidemia, Hypertension, Renal Disease, Seizure Disorder, Sleep Apnea/CPAP/BIPAP, Thyroid Disorder Additional Past Medical History / Comment(s): Bipolar, colitis, asthma when younger, seizure disorder-last known seizure 1986. Anemia History of Any Multi-Drug Resistant Organisms: MRSA Date of last positivie culture/infection: 2007 MDRO Source:: abdomen Past Surgical History: Appendectomy, Bowel Resection, Cholecystectomy, Hernia Repair, Tonsillectomy, Tubal Ligation Additional Past Surgical History / Comment(s): salvador cataracts,abd hernia sx w/ mesh-2nd sx to removed mesh and had mrsa after 2nd sx in 2007, bowel sx d/t obstruction, Past Anesthesia/Blood Transfusion Reactions: Motion Sickness Additional Past Anesthesia/Blood Transfusion Reaction / Comment(s): past blood transfusion- no reaction Past Psychological History: Bipolar Smoking Status: Former smoker Past Alcohol Use History: None Reported Past Drug Use History: None Reported - Past Family History Father Family Medical History: Cancer Additional Family Medical History / Comment(s): lung cancer. all 11 siblings of father had some sort of cancer Mother Family Medical History: Congestive Heart Failure (CHF) Additional Family Medical History / Comment(s): aunts had bipolar depression Medications and Allergies Home Medications Medication Instructions Recorded Confirmed Type Aspirin 81 mg PO DAILY 05/12/15 08/08/19 History Levothyroxine Sodium [Levoxyl] 50 mcg PO DAILY 05/12/15 08/08/19 History Sertraline [Zoloft] 100 mg PO BID 05/12/15 08/08/19 History Ziprasidone [Geodon] 40 mg PO BID 05/12/15 08/08/19 History lamoTRIgine 200 mg PO HS 05/12/15 08/08/19 History Magnesium Oxide [Mag-Ox] 400 mg PO DAILY 01/17/17 08/08/19 History Albuterol Inhaler [Ventolin Hfa 2 puff INHALATION RT-QID PRN 01/22/18 08/08/19 History Inhaler] Budesonide [Pulmicort] 0.5 mg INHALATION BID #60 neb 01/24/18 08/08/19 Rx Allopurinol [Zyloprim] 100 mg PO DAILY 08/08/19 08/08/19 History Cinacalcet [Sensipar] 30 mg PO DAILY 08/08/19 08/08/19 History Ferrous Sulfate [Feosol] 325 mg PO DAILY 08/08/19 08/08/19 History Furosemide [Lasix] 40 mg PO BID 08/08/19 08/08/19 History L.acidoph,Paracasei, B.lactis 1 tab PO DAILY 08/08/19 08/08/19 History [Probiotic] LORazepam [Ativan] 0.5 mg PO HS 08/08/19 08/08/19 History Potassium Chloride 10 meq PO BID 08/08/19 08/08/19 History Allergies Allergy/AdvReac Type Severity Reaction Status Date / Time codeine Allergy Anaphylaxis Verified 08/08/19 18:44 Iodinated Contrast Media Allergy Chest Pain Verified 08/08/19 18:44 [Iodinated Contrast Media - Oral and] Iodine and Iodide Containing Allergy Anaphylaxis Verified 08/08/19 18:44 Produc Physical Exam Vitals: Vital Signs Temp Pulse Pulse Resp BP BP Pulse Ox 08/10/19 13:31 82 08/10/19 13:17 82 08/10/19 11:56 80 83/51 08/10/19 11:47 82 08/10/19 11:27 98.2 F 61 18 72/49 94 L 08/10/19 11:16 18 08/10/19 08:12 80 08/10/19 08:00 97.6 F 71 18 82/52 97 08/10/19 07:55 80 08/10/19 04:00 97.8 F 68 18 91/55 98 08/09/19 23:25 80 18 90/61 99 08/09/19 20:00 97.6 F 82 20 82/53 100 08/09/19 18:15 77 78/50 08/09/19 18:00 83 20 100/63 08/09/19 17:45 88 18 85/56 08/09/19 16:40 80 08/09/19 16:27 82 20 100 08/09/19 16:00 88 20 87/57 99 08/09/19 15:30 97/64 08/09/19 15:15 97/63 08/09/19 15:10 92/59 08/09/19 15:00 98.0 F 94 20 80/0 100 Intake and Output 08/09/19 08/10/19 08/10/19 22:59 06:59 14:59 Intake Total 360 Output Total 400 50 Balance -40 -50 Intake: Oral 360 Output: Urine 400 50 Other: Voiding Method Bedside Commode Weight 53.7 kg Results - Lab Results Most recent lab results Calcium 7.9 mg/dL (8.4-10.2) L 08/10/19 11:02 Magnesium 2.5 mg/dL (1.6-2.3) H 08/10/19 11:02 08/10/19 11:02 08/10/19 12:39 Assessment and Plan Plan: Assessment: 1. Acute kidney injury secondary to ATN secondary to hypotension. Creatinine up to 3.5 today. No evidence of urinary retention. 2. Chronic kidney disease stage III with baseline creatinine in the range of 1.4-1.7 secondary to nephrosclerosis. 3. Chronic systolic CHF with ejection fraction of less than 20% with moderate mitral regurgitation from echo done in October 2018. 4. Hyponatremia secondary to acute kidney injury. 5. Metabolic acidosis secondary to acute kidney injury. 6. Hyperkalemia secondary to acute kidney injury, metabolic acidosis and potassium supplementation. 7. Diabetes mellitus. 8. Primary hyperparathyroidism maintained on Sensipar. Plan: Decrease rate of normal saline to 40 mL an hour. Need to be cautious with IV fluids due to patient's severe cardiomyopathy. Will discuss with cardiology if dobutamine can be started. Echo from this admission pending. Repeat potassium level this evening. Low potassium diet. Add oral sodium bicarbonate. If no improvement in urine output, I will give her a dose of IV Lasix if blood pressure stable. Add midodrine. Continue to monitor renal function and urine output closely. Thank you for the consultation. I will continue to follow the patient with you during her hospital stay.
[2019-08-10] MEDS: MIDODRINE 5 MG TAB PO SCH (15:17)
[2019-08-10] MEDS: SODIUM POLYSTYRENE SULFONATE 15 GM/60 ML BOTTLE PO SCH ×2 (15:23→22:43)
[2019-08-10] MEDS: DOBUTamine DRIP 500 MG in DEXTROSE/WATER 1 250ML.BAG IV SCH (16:57)
[2019-08-10 17:06] LABS: Glucose,Whole Blood 78 mg/dL (75-99)
--- NOTE | 2019-08-10 19:02 | ECHOF ---
Referral Reason:chf MEASUREMENTS -------- HEIGHT: 157.5 cm WEIGHT: 53.5 kg BP: 91/55 RVIDd: 4.1 cm (< 3.3) IVSd: 1.1 cm (0.6 - 1.1) LVIDd: 5.7 cm (3.9 - 5.3) LVPWd: 1.2 cm (0.6 - 1.1) IVSs: 1.4 cm LVIDs: 4.4 cm LVPWs: 1.6 cm LAESV Index (A-L): 110.21 ml/m Ao Diam: 2.5 cm (2.0 - 3.7) AV Cusp: 1.6 cm (1.5 - 2.6) LA Diam: 5.7 cm (2.7 - 3.8) MV EXCURSION: 14.991 mm (> 18.000) MV EF SLOPE: 62 mm/s (70 - 150) EPSS: 1.4 cm MV E Fox: 1.63 m/s MV DecT: 134 ms MV A Fox: 1.15 m/s MV E/A Ratio: 1.41 AR PHT: 288 ms RAP: 20.00 mmHg RVSP: 94.63 mmHg FINDINGS -------- Sinus rhythm. This was a technically good study. The left ventricle is mildly dilated. There is mild concentric left ventricular hypertrophy. Ther e is moderate global hypokinesis of LV . Overall left ventricular systolic function is moderate-sev erely impaired with, an EF between 30 - 35 %. Increased Lap Grade III Diastolic Dysfunction. The right ventricle is moderately enlarged. LA is severely dilated >40 ml/m2 The right atrium is moderately enlarged. Interatrial and interventricular septum intact. The aortic valve is trileaflet and appears structurally normal. There is mild aortic valve sclerosi s. Trace amount of aortic regurgitation. There is no evidence of aortic stenosis. Mild mitral annular calcification present. Severe mitral regurgitation is present. Severe tricuspid regurgitation present. There is severe pulmonary hypertension. The right ventric ular systolic pressure, as measured by Doppler, is 94.63mmHg. Trace/mild (physiologic) pulmonic regurgitation. The aortic root size is normal. The inferior vena cava is dilated with no significant inspiratory collapse which is consistent estima jabari right atrial pressure of >20 mmHg. There is a small, generalized pericardial effusion present. CONCLUSIONS -------- 1. Sinus rhythm. 2. This was a technically good study. 3. The left ventricle is mildly dilated. 4. There is mild concentric left ventricular hypertrophy. 5. There is moderate global hypokinesis of LV . 6. Overall left ventricular systolic function is moderate-severely impaired with, an EF between 30 - 35 %. 7. Increased Lap Grade III Diastolic Dysfunction. 8. The right ventricle is moderately enlarged. 9. LA is severely dilated >40 ml/m2 10. The right atrium is moderately enlarged. 11. Interatrial and interventricular septum intact. 12. The aortic valve is trileaflet and appears structurally normal. 13. There is mild aortic valve sclerosis. 14. Trace amount of aortic regurgitation. 15. There is no evidence of aortic stenosis. 16. Mild mitral annular calcification present. 17. Severe mitral regurgitation is present. 18. Severe tricuspid regurgitation present. 19. There is severe pulmonary hypertension. 20. The right ventricular systolic pressure, as measured by Doppler, is 94.63mmHg. 21. Trace/mild (physiologic) pulmonic regurgitation. 22. The aortic root size is normal. 23. The inferior vena cava is dilated with no significant inspiratory collapse which is consistent es timated right atrial pressure of >20 mmHg. 24. There is a small, generalized pericardial effusion present. SINGLE POINTED OPERATOR: Linnette Hughes RDCS
[2019-08-10 20:29] LABS: Glucose,Whole Blood 127 mg/dL (75-99)
[2019-08-10] MEDS: SODIUM BICARBONATE TAB 650 MG TAB PO SCH (20:46)
[2019-08-10] MEDS: lamoTRIgine 100 MG TAB PO SCH (20:46)
[2019-08-10] MEDS ORDERED: FUROSEMIDE 10 MG/ML 10 ML VIAL IV STA (21:50)
[2019-08-10] MEDS: LORazepam 0.5 MG TAB PO SCH (21:56)
[2019-08-11] MEDS: IPRATROPIUM-ALBUTEROL 3 ML NEB INHALATION SCH ×7 (00:05→23:29)
[2019-08-11] MEDS: SODIUM POLYSTYRENE SULFONATE 15 GM/60 ML BOTTLE PO SCH ×2 (04:40→11:54)
[2019-08-11 06:06] LABS: Glucose,Whole Blood 135 mg/dL (75-99)
[2019-08-11] MEDS: INSULIN ASPART (NovoLOG) 100 UNIT/ML VIAL SQ SCH ×4 (06:09→21:00)
[2019-08-11] MEDS: MIDODRINE 5 MG TAB PO SCH ×3 (06:45→17:43)
[2019-08-11] MEDS: LEVOTHYROXINE 50 MCG TAB PO SCH (06:45)
[2019-08-11 06:48] LABS: Calcium 7.2 mg/dL (8.4-10.2); Magnesium 2.1 mg/dL (1.6-2.3); Potassium 4.5 mmol/L (3.5-5.1)
--- NOTE | 2019-08-11 07:56 | XR ---
EXAMINATION TYPE: XR chest 1V DATE OF EXAM: 08/11/2019 CLINICAL HISTORY: Difficulty breathing and CHF progress study. TECHNIQUE: Single AP portable upright view of the chest is obtained. COMPARISON: Chest x-ray from one day earlier and older studies. CT chest October 28, 2018. FINDINGS: Persistent cardiomegaly with central vascular congestion. Background chronic emphysematous change with developing or worsening right basilar opacity now silhouetting portion of right hemidiap hragm. Underlying scoliotic curvature. IMPRESSION: Chronic emphysematous change and cardiomegaly with central vascular congestion redemonstr ated. Worsening right basilar acute infiltrate noted. Progress study advised.
[2019-08-11] MEDS: BUDESONIDE 0.5 MG/2 ML NEBU INHALATION SCH ×2 (09:01→20:13)
[2019-08-11] MEDS: MAGNESIUM OXIDE 400 MG TAB PO SCH (09:26)
[2019-08-11] MEDS: FERROUS SULFATE 325 MG TAB PO SCH (09:26)
[2019-08-11] MEDS: ZIPRASIDONE 40 MG CAP PO SCH ×2 (09:26→19:55)
[2019-08-11] MEDS: HEPARIN SODIUM,PORCINE 5,000 UNIT/ML 1 ML VIAL SQ SCH ×2 (09:26→19:56)
[2019-08-11] MEDS: FAMOTIDINE 20 MG TAB PO SCH (09:26)
[2019-08-11] MEDS: CINACALCET 30 MG TAB PO SCH (09:26)
[2019-08-11] MEDS: SERTRALINE 100 MG TAB PO SCH ×2 (09:26→19:55)
[2019-08-11] MEDS: ASPIRIN 81 MG PO SCH (09:26)
[2019-08-11] MEDS: ALLOPURINOL 100 MG TAB PO SCH (09:26)
[2019-08-11] MEDS: SODIUM BICARBONATE TAB 650 MG TAB PO SCH ×2 (09:26→19:55)
[2019-08-11] MEDS ORDERED: METOLAZONE 5 MG TAB PO STA (10:52)
--- NOTE | 2019-08-11 10:59 | P.PN ---
Subjective Progress Note Date: 08/11/19 this is a pleasant 79 years old female with past medical history of COPD/asthma, heart failure and severe cardiomyopathy, diabetes mellitus, hypertension, hyperlipidemia, seizure disorder, sleep apnea on CPAP/BiPAP, hypothyroidism, bipolar disorder, anemia. Patient presents because of progressive dyspnea over 3-4 days with no associated cough or chest pain. Patient at baseline is not on home oxygen and on the presentation on admission patient has low-grade temperature of 99.7. Vitas looks stable, blood pressure 95/64 early this morning, later on went up to 100/70. Patient saturating 97% on 2 L oxygen via NC.labs show an unremarkable CBC, INR,BMP showing creatinine of 1.9, baseline is 1.5-2.1. Elevated troponin at 0.06, 0.08 and 0.06. Influenza was is negative.EKG showing normal sinus rhythm at 99 bpm and left bundle-branch block with QTC of 546. Chest x-ray: Mild congestive heart failure in the emergency room patient received 1 dose of Lasix 60 mg and 1 dose of Solu- Medrol 125 mg 08/10/2019 patient reports a rough night, not feeling well this morning. Systolic blood pressures low 80s.complaints of nausea, vomiting. EKG changes with wide-complex tachycardia.EKG pending. labs ordered/pending.denies chest pain, abdominal pain or cough.maintaining O2 sats of 97% on 2 L nasal cannula. 08/11/2019 patient had been aggressively diuresed with Lasix IV push-renal function worsened yesterday-creatinine up to 3.51, hyperkalemic, potassium 6.9- nephrology consulted. Received hyperkalemic regimen of sodium bicarb, nebulized albuterol, Kayexalate, calcium gluconate with current potassium down to 4.5. Creatinine continues to slowly trend up at 3.58. Hypotensive yesterday with pr essures continuing to drop down into the 70s, received fluid boluses.Lasix discontinued. Echo reporting moderate global hypokinesis of LV, moderately severely impaired LV function, EF 30-35%, increased left grade 3 diastolic dysfunction, severely dilated LA, severe mitral regurgitation, severe tricuspid regurgitation,severe pulmonary hypertension. Dobutamine initiated. Midodrin added.Currently receiving gentle IV fluid hydration of normal saline. Map currently 64-67. Afebrile. Denies.chest pain, palpitations. Sodium 130. Objective - Vital Signs Vital signs: Vital Signs Temp 97.2 F L 08/11/19 08:00 Pulse 87 08/11/19 09:15 Resp 18 08/11/19 08:00 BP 82/60 08/11/19 08:00 Pulse Ox 99 08/11/19 08:00 Intake & Output 08/10/19 08/11/19 08/11/19 18:59 06:59 18:59 Intake Total 120 100 60 Output Total 200 Balance -80 100 60 Weight 55.3 kg Intake: Oral 120 100 60 Output: Urine 200 Uretheral (Tinsley) 200 - Exam GENERAL: The patient is alert and oriented x3,no acute distress, tired appearing HEENT: Pupils are round and equally reacting to light. EOMI. No scleral icterus. No conjunctival pallor. Normocephalic, atraumatic. No pharyngeal erythema. No thyromegaly. CARDIOVASCULAR: S1 and S2 present. systolic murmur, no rubs, or gallops. PULMONARY: Bilateral basal crepitation ABDOMEN: Soft, nontender, nondistended, normoactive bowel sounds. No palpable organomegaly. MUSCULOSKELETAL: No joint swelling or deformity. EXTREMITIES: No cyanosis, clubbing, or pedal edema. no calf tenderness. NEUROLOGICAL: Gross neurological examination did not reveal any focal deficits. SKIN: No rashes. - Labs CBC & Chem 7: 08/10/19 11:02 08/11/19 06:01 Labs: Abnormal Lab Results - Last 24 Hours (Table) 08/10/19 08/10/19 08/10/19 Range/Units 11:02 11:02 11:32 RBC 3.73 L (3.80-5.40) m/uL MCV 102.6 H (80.0-100.0) fL RDW 16.7 H (11.5-15.5) % Neutrophils # 8.4 H (1.3-7.7) k/uL Lymphocytes # 0.7 L (1.0-4.8) k/uL Sodium 131 L (137-145) mmol/L Potassium 6.9 H* (3.5-5.1) mmol/L Chloride 92 L (98-107) mmol/L Carbon Dioxide 21 L (22-30) mmol/L BUN 48 H (7-17) mg/dL Creatinine 3.51 H (0.52-1.04) mg/dL Glucose 61 L (74-99) mg/dL POC Glucose (mg/dL) 71 L (75-99) mg/dL Calcium 7.9 L (8.4-10.2) mg/dL Magnesium 2.5 H (1.6-2.3) mg/dL 08/10/19 08/10/19 08/11/19 Range/Units 12:39 20:26 05:55 RBC (3.80-5.40) m/uL MCV (80.0-100.0) fL RDW (11.5-15.5) % Neutrophils # (1.3-7.7) k/uL Lymphocytes # (1.0-4.8) k/uL Sodium (137-145) mmol/L Potassium 6.5 H* (3.5-5.1) mmol/L Chloride (98-107) mmol/L Carbon Dioxide (22-30) mmol/L BUN (7-17) mg/dL Creatinine (0.52-1.04) mg/dL Glucose (74-99) mg/dL POC Glucose (mg/dL) 127 H 135 H (75-99) mg/dL Calcium (8.4-10.2) mg/dL Magnesium (1.6-2.3) mg/dL 08/11/19 Range/Units 06:01 RBC (3.80-5.40) m/uL MCV (80.0-100.0) fL RDW (11.5-15.5) % Neutrophils # (1.3-7.7) k/uL Lymphocytes # (1.0-4.8) k/uL Sodium 130 L (137-145) mmol/L Potassium (3.5-5.1) mmol/L Chloride 95 L (98-107) mmol/L Carbon Dioxide (22-30) mmol/L BUN 59 H (7-17) mg/dL Creatinine 3.58 H (0.52-1.04) mg/dL Glucose 105 H (74-99) mg/dL POC Glucose (mg/dL) (75-99) mg/dL Calcium 7.2 L (8.4-10.2) mg/dL Magnesium (1.6-2.3) mg/dL Assessment and Plan Assessment: acute on chronic systolic heart failure, ejection fraction 30-35% severe mitral and tricuspid regurgitation severe pulmonary hypertension Nonischemic cardiomyopathy Wide complex tachycardia chronically elevated troponin EKG showing left bundle-branch block with prolonged QTC acute on chronic kidney disease,stage III,Baseline creatinine around 1.6.,worsening secondary to ATN related to diuresing, hypotension Diabetes mellitus hyponatremia secondary to acute renal failure hypotension Hypertension,history of Hyperlipidemia seizure disorder sleep apnea on CPAP/BiPAP Hypothyroidism Bipolar disorder COPD/asthma hyperkalemia secondary to acute renal failure,poor oral intake, potassium supplementation, metabolic acidosis secondary to acute renal failure hyperparathyroidism, primary. plan: Continue on current medication regime ,sodium bicarb,midodrin,monitoring and symptomatic treatment. Renal diet. Dobutamine as per cardiology. Gentle IV fluid hydration. Prognosis guarded given multiple complex medical issues. The impression and plan of care has been dictated as directed. : I performed a history and examination of this patient, discussed the same with the dictator. I agree with the dictator's note ,documented as a scribe. Any additional findings or plans will be noted.
--- NOTE | 2019-08-11 11:26 | P.PN ---
Subjective Patient is seen in follow-up for acute kidney injury on chronic kidney disease. Patient has chronic kidney disease stage III with baseline creatinine in the range of 1.4-1.7 secondary to nephrosclerosis. She is maintained on dobutamine drip. Potassium level 4.5 this morning. Renal function is fairly stable. Creatinine 3.58 today. She has a Tinsley catheter. Urine output has been on the lower side. Denies active chest pain or shortness of breath. Patient has systolic CHF with ejection fraction of 30-35% with severe mitral and tricuspid regurgitation. Vital signs are stable. General: The patient appeared well nourished and normally developed. HEENT: Head exam is unremarkable. Neck is without jugular venous distension. LUNGS: Breath sounds decreased. HEART: Rate and Rhythm are regular. First and second heart sounds normal. No murmurs, rubs or gallops. ABDOMEN: Abdominal exam reveals normal bowel sounds. Non-tender and non-distended. No evidence of peritonitis. EXTREMITITES: No clubbing, cyanosis, or edema. Objective - Vital Signs Vital signs: Vital Signs Temp 97.2 F L 08/11/19 08:00 Pulse 87 08/11/19 09:15 Resp 18 08/11/19 08:00 BP 82/60 08/11/19 08:00 Pulse Ox 99 08/11/19 08:00 Intake & Output 08/10/19 08/11/19 08/11/19 18:59 06:59 18:59 Intake Total 120 100 60 Output Total 200 Balance -80 100 60 Weight 55.3 kg Intake: Oral 120 100 60 Output: Urine 200 Uretheral (Tinsley) 200 - Labs CBC & Chem 7: 08/10/19 11:02 08/11/19 06:01 Labs: Abnormal Lab Results - Last 24 Hours (Table) 08/10/19 08/10/19 08/10/19 Range/Units 11:02 11:02 11:32 RBC 3.73 L (3.80-5.40) m/uL MCV 102.6 H (80.0-100.0) fL RDW 16.7 H (11.5-15.5) % Neutrophils # 8.4 H (1.3-7.7) k/uL Lymphocytes # 0.7 L (1.0-4.8) k/uL Sodium 131 L (137-145) mmol/L Potassium 6.9 H* (3.5-5.1) mmol/L Chloride 92 L (98-107) mmol/L Carbon Dioxide 21 L (22-30) mmol/L BUN 48 H (7-17) mg/dL Creatinine 3.51 H (0.52-1.04) mg/dL Glucose 61 L (74-99) mg/dL POC Glucose (mg/dL) 71 L (75-99) mg/dL Calcium 7.9 L (8.4-10.2) mg/dL Magnesium 2.5 H (1.6-2.3) mg/dL 08/10/19 08/10/19 08/11/19 Range/Units 12:39 20:26 05:55 RBC (3.80-5.40) m/uL MCV (80.0-100.0) fL RDW (11.5-15.5) % Neutrophils # (1.3-7.7) k/uL Lymphocytes # (1.0-4.8) k/uL Sodium (137-145) mmol/L Potassium 6.5 H* (3.5-5.1) mmol/L Chloride (98-107) mmol/L Carbon Dioxide (22-30) mmol/L BUN (7-17) mg/dL Creatinine (0.52-1.04) mg/dL Glucose (74-99) mg/dL POC Glucose (mg/dL) 127 H 135 H (75-99) mg/dL Calcium (8.4-10.2) mg/dL Magnesium (1.6-2.3) mg/dL 08/11/19 Range/Units 06:01 RBC (3.80-5.40) m/uL MCV (80.0-100.0) fL RDW (11.5-15.5) % Neutrophils # (1.3-7.7) k/uL Lymphocytes # (1.0-4.8) k/uL Sodium 130 L (137-145) mmol/L Potassium (3.5-5.1) mmol/L Chloride 95 L (98-107) mmol/L Carbon Dioxide (22-30) mmol/L BUN 59 H (7-17) mg/dL Creatinine 3.58 H (0.52-1.04) mg/dL Glucose 105 H (74-99) mg/dL POC Glucose (mg/dL) (75-99) mg/dL Calcium 7.2 L (8.4-10.2) mg/dL Magnesium (1.6-2.3) mg/dL Assessment and Plan Plan: Assessment: 1. Acute kidney injury secondary to ATN secondary to hypotension. Creatinine fairly stable at 3.58 today. No evidence of urinary retention. 2. Chronic kidney disease stage III with baseline creatinine in the range of 1.4-1.7 secondary to nephrosclerosis. 3. Chronic systolic CHF with ejection fraction of 30-35% with severe mitral and tricuspid regurgitation. 4. Hyponatremia secondary to acute kidney injury. 5. Metabolic acidosis secondary to acute kidney injury. 6. Hyperkalemia secondary to acute kidney injury, metabolic acidosis and potassium supplementation. Better. 7. Diabetes mellitus. 8. Primary hyperparathyroidism maintained on Sensipar. 9. Severe pulmonary hypertension. Plan: Continue dobutamine. IV diuretics started per cardiology. Maintain oral sodium bicarbonate. Increase dose of midodrine to 10 mg 3 times daily. Continue to monitor renal function and urine output closely.
[2019-08-11 11:55] LABS: Glucose,Whole Blood 124 mg/dL (75-99)
[2019-08-11] MEDS: FUROSEMIDE 10 MG/ML 10 ML VIAL IV SCH ×3 (11:55→22:51)
--- NOTE | 2019-08-11 12:06 | PN ---
PROGRESS NOTE This patient has a severe cardiomyopathy with severely impaired left ventricular systolic function. Patient developed worsening of the renal failure suggestive of cardiorenal syndrome. Potassium was 6.9 and today it is 4.5. The patient's urine output remains borderline. The patient is not nauseated. Her blood pressure remains 80 to 90 systolic. First and second heart sounds are heard. LUNGS: Examination reveals bilateral diminished air entry at the bases. Patient's creatinine remains 3.58. Urine output during the night was only 200 mL. FINAL IMPRESSION: This patient is admitted with acute on chronic systolic heart failure. Patient has evidence of worsening renal functions due to the cardiorenal syndrome. The patient's overall prognosis is very poor. I discussed with the patient's [id number]. She is going to talk with her regarding her code status. We will continue the patient on dobutamine drip and give her Lasix 80 mg IV q.8 hourly and Zaroxolyn 5 mg daily would be given. MMJUSTIN / J CARLOSN: [id number] /
[2019-08-11 16:54] LABS: Glucose,Whole Blood 123 mg/dL (75-99)
[2019-08-11] MEDS: DOBUTamine DRIP 500 MG in DEXTROSE/WATER 1 250ML.BAG IV SCH (19:54)
[2019-08-11] MEDS: lamoTRIgine 100 MG TAB PO SCH (19:55)
[2019-08-11 20:27] LABS: Glucose,Whole Blood 142 mg/dL (75-99)
[2019-08-11] MEDS: LORazepam 0.5 MG TAB PO SCH (21:01)
[2019-08-11] MEDS: SODIUM CHLORIDE 0.9% 1,000 ML IV SCH (22:53)
[2019-08-12] MEDS: IPRATROPIUM-ALBUTEROL 3 ML NEB INHALATION SCH ×5 (05:32→20:33)
[2019-08-12] MEDS: INSULIN ASPART (NovoLOG) 100 UNIT/ML VIAL SQ SCH ×4 (06:18→21:18)
[2019-08-12] MEDS: LEVOTHYROXINE 50 MCG TAB PO SCH (06:18)
[2019-08-12] MEDS: MIDODRINE 5 MG TAB PO SCH ×3 (06:18→15:55)
[2019-08-12 06:23] LABS: Glucose,Whole Blood 79 mg/dL (75-99)
[2019-08-12 06:32] LABS: Glucose,Whole Blood 82 mg/dL (75-99)
[2019-08-12 07:11] LABS: Calcium 6.9 mg/dL (8.4-10.2); Magnesium 1.8 mg/dL (1.6-2.3); Potassium 3.1 mmol/L (3.5-5.1)
[2019-08-12 07:14] LABS: Anisocytosis Slight; Basophils # (A) 0.1 k/uL (0-0.2); Basophils % (A) 1 %; Eosinophils # (A) 0.1 k/uL (0-0.7); Eosinophils % (A) 1 %; HCT 30.4 % (34.0-46.0); Hypochromasia Slight; Lymphocytes # (A) 0.8 k/uL (1.0-4.8); Lymphocytes % (A) 13 %; MCH 31.9 pg (25.0-35.0); MCHC 31.7 g/dL (31.0-37.0); MCV 100.8 fL (80.0-100.0); Macrocytosis Slight; Mean Platelet Volume 9.3; Monocytes # (A) 0.3 k/uL (0-1.0); Monocytes % (A) 6 %; Neutrophils # (A) 4.7 k/uL (1.3-7.7); Neutrophils % (A) 78 %; Platelet Count 115 k/uL (150-450); RBC 3.01 m/uL (3.80-5.40); RDW 17.4 % (11.5-15.5)
[2019-08-12 07:18] LABS: HGB 9.6 gm/dL (11.4-16.0)
[2019-08-12] MEDS: CINACALCET 30 MG TAB PO SCH (08:50)
[2019-08-12] MEDS: SODIUM BICARBONATE TAB 650 MG TAB PO SCH (08:51)
[2019-08-12] MEDS: HEPARIN SODIUM,PORCINE 5,000 UNIT/ML 1 ML VIAL SQ SCH ×2 (08:51→21:01)
[2019-08-12] MEDS: FUROSEMIDE 10 MG/ML 10 ML VIAL IV SCH ×2 (08:51→21:00)
[2019-08-12] MEDS: MAGNESIUM OXIDE 400 MG TAB PO SCH (08:51)
[2019-08-12] MEDS: ASPIRIN 81 MG PO SCH (08:51)
[2019-08-12] MEDS: ZIPRASIDONE 40 MG CAP PO SCH ×2 (08:51→21:09)
[2019-08-12] MEDS: FERROUS SULFATE 325 MG TAB PO SCH (08:51)
[2019-08-12] MEDS: FAMOTIDINE 20 MG TAB PO SCH (08:51)
[2019-08-12] MEDS: SERTRALINE 100 MG TAB PO SCH ×2 (08:51→21:01)
[2019-08-12] MEDS: ALLOPURINOL 100 MG TAB PO SCH (08:51)
[2019-08-12] MEDS: BUDESONIDE 0.5 MG/2 ML NEBU INHALATION SCH ×2 (10:30→20:33)
--- NOTE | 2019-08-12 11:08 | P.PN ---
Subjective Patient is seen in follow-up for acute kidney injury on chronic kidney disease. Patient has chronic kidney disease stage III with baseline creatinine in the range of 1.4-1.7 secondary to nephrosclerosis. She is maintained on dobutamine drip and IV Lasix 80 mg 3 times daily. Renal function is better. Creatinine 2.97 today. She has a Tinsley catheter. Urine output 4.7 L in the last 24 hours. Denies active chest pain or shortness of breath. Patient has systolic CHF with ejection fraction of 30-35% with severe mitral and tricuspid regurgitation. Vital signs are stable. General: The patient appeared well nourished and normally developed. HEENT: Head exam is unremarkable. Neck is without jugular venous distension. LUNGS: Breath sounds decreased. HEART: Rate and Rhythm are regular. First and second heart sounds normal. No murmurs, rubs or gallops. ABDOMEN: Abdominal exam reveals normal bowel sounds. Non-tender and non- distended. No evidence of peritonitis. EXTREMITITES: No clubbing, cyanosis, or edema. Objective - Vital Signs Vital signs: Vital Signs Temp 97.9 F 08/12/19 08:00 Pulse 91 08/12/19 08:00 Resp 18 08/12/19 08:00 BP 95/60 08/12/19 08:00 Pulse Ox 97 08/12/19 08:00 Intake & Output 08/11/19 08/12/19 08/12/19 18:59 06:59 18:59 Intake Total 900.55 108.555 240 Output Total 1450 3320 450 Balance -549.45 -3211.445 -210 Weight 52.5 kg Intake: Intake, IV Titration 480.55 108.555 Amount DOBUTamine DRIP 500 mg In 80.55 108.555 Dextrose/Water 1 250ml. bag @ 5 MCG/KG/MIN 8.055 mls/hr IV .Q24H GELA Rx#: [id number] Sodium Chloride 0.9% 1, 400 000 ml @ 40 mls/hr IV . Q24H GELA Rx#:[id number] Oral 420 240 Output: Urine 1450 3320 450 Other: Voiding Method Indwelling Catheter Indwelling Catheter Indwelling Catheter - Labs CBC & Chem 7: 08/12/19 06:16 08/12/19 06:16 Labs: Abnormal Lab Results - Last 24 Hours (Table) 08/11/19 08/11/19 08/11/19 Range/Units 11:54 16:53 20:26 RBC (3.80-5.40) m/uL Hgb (11.4-16.0) gm/dL Hct (34.0-46.0) % MCV (80.0-100.0) fL RDW (11.5-15.5) % Plt Count (150-450) k/uL Lymphocytes # (1.0-4.8) k/uL Potassium (3.5-5.1) mmol/L BUN (7-17) mg/dL Creatinine (0.52-1.04) mg/dL POC Glucose (mg/dL) 124 H 123 H 142 H (75-99) mg/dL Calcium (8.4-10.2) mg/dL 08/12/19 08/12/19 Range/Units 06:16 06:16 RBC 3.01 L (3.80-5.40) m/uL Hgb 9.6 L D (11.4-16.0) gm/dL Hct 30.4 L (34.0-46.0) % MCV 100.8 H (80.0-100.0) fL RDW 17.4 H (11.5-15.5) % Plt Count 115 L (150-450) k/uL Lymphocytes # 0.8 L (1.0-4.8) k/uL Potassium 3.1 L (3.5-5.1) mmol/L BUN 52 H (7-17) mg/dL Creatinine 2.97 H (0.52-1.04) mg/dL POC Glucose (mg/dL) (75-99) mg/dL Calcium 6.9 L (8.4-10.2) mg/dL Assessment and Plan Plan: Assessment: 1. Acute kidney injury secondary to ATN secondary to hypotension and cardiorenal syndrome. Creatinine peaked at 3.5 at this admission is 2.97 today. No evidence of urinary retention. 2. Chronic kidney disease stage III with baseline creatinine in the range of 1.4-1.7 secondary to nephrosclerosis. 3. Acute on chronic systolic CHF with ejection fraction of 30-35% with severe mitral and tricuspid regurgitation. 4. Hyponatremia secondary to acute kidney injury. Hypervolemic. Better. 5. Metabolic acidosis secondary to acute kidney injury. Resolved. 6. Hypokalemia secondary to diuresis. Magnesium normal. 7. Diabetes mellitus. 8. Primary hyperparathyroidism maintained on Sensipar. Calcium on the lower side. 9. Severe pulmonary hypertension. Plan: Continue dobutamine. Decrease Lasix to 80 mg IV twice daily. Replace potassium. 80 mEq today. Discontinue oral sodium bicarbonate. Maintain midodrine. Hold Sensipar. Continue to monitor renal function and urine output closely.
[2019-08-12] MEDS: POTASSIUM CHLORIDE ER 20 MEQ TAB.ER PO SCH ×2 (11:10→11:17)
[2019-08-12 12:12] LABS: Glucose,Whole Blood 118 mg/dL (75-99)
[2019-08-12] MEDS: DOBUTamine DRIP 500 MG in DEXTROSE/WATER 1 250ML.BAG IV SCH (15:56)
[2019-08-12 16:55] LABS: Glucose,Whole Blood 133 mg/dL (75-99)
--- NOTE | 2019-08-12 17:13 | P.PN ---
Subjective Progress Note Date: 08/12/19 this is a pleasant 79 years old female with past medical history of COPD/asthma, heart failure and severe cardiomyopathy, diabetes mellitus, hypertension, hyperlipidemia, seizure disorder, sleep apnea on CPAP/BiPAP, hypothyroidism, bipolar disorder, anemia. Patient presents because of progressive dyspnea over 3-4 days with no associated cough or chest pain. Patient at baseline is not on home oxygen and on the presentation on admission patient has low-grade temperature of 99.7. Vitas looks stable, blood pressure 95/64 early this morning, later on went up to 100/70. Patient saturating 97% on 2 L oxygen via NC.labs show an unremarkable CBC, INR,BMP showing creatinine of 1.9, baseline is 1.5-2.1. Elevated troponin at 0.06, 0.08 and 0.06. Influenza was is negative.EKG showing normal sinus rhythm at 99 bpm and left bundle-branch block with QTC of 546. Chest x-ray: Mild congestive heart failure in the emergency room patient received 1 dose of Lasix 60 mg and 1 dose of Solu- Medrol 125 mg 08/10/2019 patient reports a rough night, not feeling well this morning. Systolic blood pressures low 80s.complaints of nausea, vomiting. EKG changes with wide-complex tachycardia.EKG pending. labs ordered/pending.denies chest pain, abdominal pain or cough.maintaining O2 sats of 97% on 2 L nasal cannula. 08/11/2019 patient had been aggressively diuresed with Lasix IV push-renal function worsened yesterday-creatinine up to 3.51, hyperkalemic, potassium 6.9- nephrology consulted. Received hyperkalemic regimen of sodium bicarb, nebulized albuterol, Kayexalate, calcium gluconate with current potassium down to 4.5. Creatinine continues to slowly trend up at 3.58. Hypotensive yesterday with pr essures continuing to drop down into the 70s, received fluid boluses.Lasix discontinued. Echo reporting moderate global hypokinesis of LV, moderately severely impaired LV function, EF 30-35%, increased left grade 3 diastolic dysfunction, severely dilated LA, severe mitral regurgitation, severe tricuspid regurgitation,severe pulmonary hypertension. Dobutamine initiated. Midodrin added.Currently receiving gentle IV fluid hydration of normal saline. Map currently 64-67. Afebrile. Denies.chest pain, palpitations. Sodium 130. 08/12/2019 maintained on dobutamine drip.diuresing well on Lasix IV push with 24-hour I&O reflecting a negative fluid balance.creatinine improving,2.97.potassium 3.1 receiving supplements.hemoglobin 9.6.denies chest pain, palpitations or shortness of breath.sodium improved, up to 138.CODE STATUS changed to no code last night. Objective - Vital Signs Vital signs: Vital Signs Temp 98 F 08/12/19 15:56 Pulse 90 08/12/19 16:32 Resp 18 08/12/19 15:59 BP 80/48 08/12/19 15:56 Pulse Ox 95 08/12/19 16:24 Intake & Output 08/11/19 08/12/19 08/12/19 18:59 06:59 18:59 Intake Total 900.55 108.555 240 Output Total 1450 3320 2000 Balance -549.45 -3211.445 -1760 Weight 52.5 kg Intake: Intake, IV Titration 480.55 108.555 Amount DOBUTamine DRIP 500 mg In 80.55 108.555 Dextrose/Water 1 250ml. bag @ 5 MCG/KG/MIN 8.055 mls/hr IV .Q24H GELA Rx#: [id number] Sodium Chloride 0.9% 1, 400 000 ml @ 40 mls/hr IV . Q24H GELA Rx#:[id number] Oral 420 240 Output: Urine 1450 3320 2000 Other: Voiding Method Indwelling Catheter Indwelling Catheter Indwelling Catheter - Exam GENERAL: The patient is alert and oriented x3,no acute distress HEENT: Pupils are round and equally reacting to light. EOMI. No scleral icterus. No conjunctival pallor. Normocephalic, atraumatic. No pharyngeal erythema. No thyromegaly. CARDIOVASCULAR: S1 and S2 present. systolic murmur, no rubs, or gallops. PULMONARY: Bilateral basal crepitation ABDOMEN: Soft, nontender, nondistended, normoactive bowel sounds. No palpable organomegaly. MUSCULOSKELETAL: No joint swelling or deformity. EXTREMITIES: No cyanosis, clubbing, or pedal edema. no calf tenderness. NEUROLOGICAL: Gross neurological examination did not reveal any focal deficits. SKIN: No rashes. - Labs CBC & Chem 7: 08/12/19 06:16 08/12/19 06:16 Labs: Abnormal Lab Results - Last 24 Hours (Table) 08/11/19 08/12/19 08/12/19 Range/Units 20:26 06:16 06:16 RBC 3.01 L (3.80-5.40) m/uL Hgb 9.6 L D (11.4-16.0) gm/dL Hct 30.4 L (34.0-46.0) % MCV 100.8 H (80.0-100.0) fL RDW 17.4 H (11.5-15.5) % Plt Count 115 L (150-450) k/uL Lymphocytes # 0.8 L (1.0-4.8) k/uL Potassium 3.1 L (3.5-5.1) mmol/L BUN 52 H (7-17) mg/dL Creatinine 2.97 H (0.52-1.04) mg/dL POC Glucose (mg/dL) 142 H (75-99) mg/dL Calcium 6.9 L (8.4-10.2) mg/dL 08/12/19 08/12/19 Range/Units 12:10 16:54 RBC (3.80-5.40) m/uL Hgb (11.4-16.0) gm/dL Hct (34.0-46.0) % MCV (80.0-100.0) fL RDW (11.5-15.5) % Plt Count (150-450) k/uL Lymphocytes # (1.0-4.8) k/uL Potassium (3.5-5.1) mmol/L BUN (7-17) mg/dL Creatinine (0.52-1.04) mg/dL POC Glucose (mg/dL) 118 H 133 H (75-99) mg/dL Calcium (8.4-10.2) mg/dL Assessment and Plan Assessment: acute on chronic systolic heart failure, ejection fraction 30-35% severe mitral and tricuspid regurgitation severe pulmonary hypertension Nonischemic cardiomyopathy Wide complex tachycardia chronically elevated troponin EKG showing left bundle-branch block with prolonged QTC acute on chronic kidney disease,stage III,Baseline creatinine around 1.6.,worsening secondary to ATN related to diuresing, hypotension Diabetes mellitus hyponatremia secondary to acute renal failure hypotension Hypertension,history of Hyperlipidemia seizure disorder sleep apnea on CPAP/BiPAP Hypothyroidism Bipolar disorder COPD/asthma hyperkalemia secondary to acute renal failure,poor oral intake, potassium supplementation, hypokalemia metabolic acidosis secondary to acute renal failure hyperparathyroidism, primary. No Code plan: Continue on current medication regime ,midodrin,monitoring and symptomatic treatment. potassium replacement in progress. Diuretics as per nephrology. Dobutamine as per cardiology.close monitoring of electrolytes, renal function with repeat labs ordered for a.m. Prognosis guarded given multiple complex medical issues. The impression and plan of care has been dictated as directed. : I performed a history and examination of this patient, discussed the same with the dictator. I agree with the dictator's note ,documented as a scribe. Any additional findings or plans will be noted.
[2019-08-12] MEDS: lamoTRIgine 100 MG TAB PO SCH (21:00)
[2019-08-12] MEDS: LORazepam 0.5 MG TAB PO SCH (21:01)
[2019-08-12 21:13] LABS: Glucose,Whole Blood 245 mg/dL (75-99)
--- NOTE | 2019-08-12 22:06 | PN ---
PROGRESS NOTE This patient has cardiomyopathy with severely impaired left ventricular systolic function. The patient is feeling better. Her breathing is improved. The patient's urine output is significantly improved. Patient's blood pressure is 95/60 mmHg. First and second heart sounds are normal. Lungs are clinically clear to auscultation and percussion. Patient's oxygen saturation is 94%. The patient's creatinine is improved to 2.97, BUN is 52. The potassium is 3.1. Plan to continue dobutamine for next 24-48 hours. The Lasix is decreased to 80 mg IV b.i.d. and continue the rest of the medications. MMODL / IJN: [id number] /
[2019-08-13] MEDS: IPRATROPIUM-ALBUTEROL 3 ML NEB INHALATION SCH ×6 (01:43→20:39)
[2019-08-13 06:06] LABS: Glucose,Whole Blood 108 mg/dL (75-99)
[2019-08-13] MEDS: LEVOTHYROXINE 50 MCG TAB PO SCH (06:36)
[2019-08-13] MEDS: MIDODRINE 5 MG TAB PO SCH ×3 (06:36→17:01)
[2019-08-13 07:11] LABS: Magnesium 1.6 mg/dL (1.6-2.3); Potassium 3.7 mmol/L (3.5-5.1)
[2019-08-13] MEDS: INSULIN ASPART (NovoLOG) 100 UNIT/ML VIAL SQ SCH ×4 (07:55→21:36)
[2019-08-13] MEDS: BUDESONIDE 0.5 MG/2 ML NEBU INHALATION SCH ×3 (08:28→20:39)
[2019-08-13] MEDS: SERTRALINE 100 MG TAB PO SCH ×2 (09:36→21:35)
[2019-08-13] MEDS: FUROSEMIDE 10 MG/ML 10 ML VIAL IV SCH ×2 (09:36→21:36)
[2019-08-13] MEDS: ALLOPURINOL 100 MG TAB PO SCH (09:36)
[2019-08-13] MEDS: MAGNESIUM OXIDE 400 MG TAB PO SCH (09:37)
[2019-08-13] MEDS: FERROUS SULFATE 325 MG TAB PO SCH (09:37)
[2019-08-13] MEDS: ASPIRIN 81 MG PO SCH (09:37)
[2019-08-13] MEDS: ZIPRASIDONE 40 MG CAP PO SCH ×2 (09:37→21:35)
[2019-08-13] MEDS: HEPARIN SODIUM,PORCINE 5,000 UNIT/ML 1 ML VIAL SQ SCH ×2 (09:37→21:35)
[2019-08-13] MEDS: FAMOTIDINE 20 MG TAB PO SCH (09:37)
--- NOTE | 2019-08-13 10:57 | P.PN ---
Subjective Patient is seen in follow-up for acute kidney injury on chronic kidney disease. Patient has chronic kidney disease stage III with baseline creatinine in the range of 1.4-1.7 secondary to nephrosclerosis. She is maintained on dobutamine drip and IV Lasix 80 mg 2 times daily. Renal function is better. Creatinine 2.5 today. She has a Tinsley catheter. Urine output 3.8 L in the last 24 hours. Denies active chest pain or shortness of breath. Feels better today. Patient has systolic CHF with ejection fraction of 30-35% with severe mitral and tri cuspid regurgitation. Vital signs are stable. General: The patient appeared well nourished and normally developed. HEENT: Head exam is unremarkable. Neck is without jugular venous distension. LUNGS: Breath sounds decreased. HEART: Rate and Rhythm are regular. First and second heart sounds normal. No murmurs, rubs or gallops. ABDOMEN: Abdominal exam reveals normal bowel sounds. Non-tender and non- distended. No evidence of peritonitis. EXTREMITITES: No clubbing, cyanosis, or edema. Objective - Vital Signs Vital signs: Vital Signs Temp 97.6 F 08/13/19 08:00 Pulse 94 08/13/19 08:00 Resp 18 08/13/19 08:00 BP 86/50 08/13/19 08:00 Pulse Ox 96 08/13/19 08:00 Intake & Output 08/12/19 08/13/19 08/13/19 18:59 06:59 18:59 Intake Total 240 100 240 Output Total 2650 1200 Balance -2410 -1100 240 Weight 47.9 kg Intake: Oral 240 100 240 Output: Urine 2650 1200 Other: Voiding Method Indwelling Catheter Indwelling Catheter Indwelling Catheter - Labs CBC & Chem 7: 08/12/19 06:16 08/13/19 06:23 Labs: Abnormal Lab Results - Last 24 Hours (Table) 08/12/19 08/12/19 08/12/19 Range/Units 12:10 16:54 21:11 Carbon Dioxide (22-30) mmol/L BUN (7-17) mg/dL Creatinine (0.52-1.04) mg/dL Glucose (74-99) mg/dL POC Glucose (mg/dL) 118 H 133 H 245 H (75-99) mg/dL Calcium (8.4-10.2) mg/dL 08/13/19 08/13/19 Range/Units 06:05 06:23 Carbon Dioxide 37 H (22-30) mmol/L BUN 41 H (7-17) mg/dL Creatinine 2.50 H (0.52-1.04) mg/dL Glucose 102 H (74-99) mg/dL POC Glucose (mg/dL) 108 H (75-99) mg/dL Calcium 7.0 L (8.4-10.2) mg/dL Assessment and Plan Plan: Assessment: 1. Acute kidney injury secondary to ATN secondary to hypotension and cardiorenal syndrome. Creatinine peaked at 3.5 at this admission is 2.5 today. 2. Chronic kidney disease stage III with baseline creatinine in the range of 1.4-1.7 secondary to nephrosclerosis. 3. Acute on chronic systolic CHF with ejection fraction of 30-35% with severe mitral and tricuspid regurgitation. 4. Hyponatremia secondary to acute kidney injury. Hypervolemic. Better. 5. Metabolic acidosis secondary to acute kidney injury. Resolved. Now alkalotic due to diuresis. 6. Hypokalemia secondary to diuresis. Magnesium normal. Better. 7. Diabetes mellitus. 8. Primary hyperparathyroidism maintained on Sensipar. Calcium on the lower side. 9. Severe pulmonary hypertension. 10. Hypomagnesemia due to diuresis. Plan: Continue dobutamine. Maintain Lasix 80 mg IV twice daily. Replace potassium. 40 mEq today. Replace Magnesium - 2 g IV today. Maintain midodrine. Continue to hold Sensipar. Continue to monitor renal function and urine output closely.
[2019-08-13 11:54] LABS: Glucose,Whole Blood 119 mg/dL (75-99)
--- NOTE | 2019-08-13 12:02 | P.PN ---
Subjective Progress Note Date: 08/13/19 This is a pleasant 79-year-old female who follows regularly with Dr. Jese Tyler in the office. She has a known history of hypertension, hyperlipidemia, chronic kidney disease, diabetes, asthma, hypothyroidism, severe mitral regurgitation. She underwent cardiac catheterization in December 2016 which revealed no significant obstructive disease. She also has a history of nonischemic cardiomyopathy her most recent echo was performed in December 2017 which revealed an ejection fraction of 30-35%, severe global hypokinesia. Severe mitral regurgitation and moderate tricuspid regurgitation. She presents to the hospital on this occasion with symptoms of progressively worsening shortness of breath. She states that on she began to get short of breath and progressively worsened since that time. Positive PND and orthopnea. Chest x- ray on arrival here showed congestive heart failure. Her EKG showed a normal sinus rhythm with a left bundle-branch block pattern, nonspecific ST-T wave changes. Blood pressure 95/60 with a heart rate in the 80s to 90s, 97% on 2 L of oxygen. Admission labs, white blood cell count 7.3, hemoglobin 11, platelet count 195. Sodium 135, potassium 4.6, BUN 31, creatinine 1.9. BNP level on arrival 19,200. Troponins 0.069, 0.058, 0.063. Patient was initiated on IV Lasix on arrival here, she's been diuresing well. At the time of my examination this morning patient states that her breathing has already significantly improved from arrival here. 08/13/2019 Patient was seen and examined this morning and overall is doing significantly better. Blood pressure 86/50 with a heart rate in the 90s to low 100s, 96% on 2 L of oxygen.she continues to be on IV Lasix 80 mg every 12 hourly as well as dobutamine at 2.5.laboratory data from today, sodium 142, potassium 3.7, BUN 41 and creatinine 2.5, magnesium is 1.6 today Objective - Vital Signs Vital signs: Vital Signs Temp 97.6 F 08/13/19 08:00 Pulse 104 H 08/13/19 11:07 Resp 18 08/13/19 08:00 BP 86/50 08/13/19 08:00 Pulse Ox 96 08/13/19 08:00 Intake & Output 08/12/19 08/13/19 08/13/19 18:59 06:59 18:59 Intake Total 240 100 360 Output Total 2650 1200 Balance -2410 -1100 360 Weight 47.9 kg Intake: Oral 240 100 360 Output: Urine 2650 1200 Other: Voiding Method Indwelling Catheter Indwelling Catheter Indwelling Catheter - Exam PHYSICAL EXAMINATION: GENERAL: 79-year-old female in no acute distress at the time of my ex amination HEENT: Head is atraumatic, normocephalic. Pupils equal, round. Sclera anicteric. Conjunctiva are clear. Mucous membranes of the mouth are moist. Neck is supple. There is elevated jugular venous pressure. No carotid bruit is heard. HEART EXAMINATION: Heart S1 and S2 with holosystolic murmur is heard at the apex CHEST EXAMINATION: Lungs are clear with diminished air entry to the bases ABDOMEN: Soft, nontender. Bowel sounds are heard. No organomegaly noted. EXTREMITIES: 2+ peripheral pulses with no evidence of peripheral edema and no calf tenderness noted. NEUROLOGIC patient is awake, alert and oriented 3 . - Labs CBC & Chem 7: 08/12/19 06:16 08/13/19 06:23 Labs: Abnormal Lab Results - Last 24 Hours (Table) 08/12/19 08/12/19 08/12/19 Range/Units 12:10 16:54 21:11 Carbon Dioxide (22-30) mmol/L BUN (7-17) mg/dL Creatinine (0.52-1.04) mg/dL Glucose (74-99) mg/dL POC Glucose (mg/dL) 118 H 133 H 245 H (75-99) mg/dL Calcium (8.4-10.2) mg/dL 08/13/19 08/13/19 08/13/19 Range/Units 06:05 06:23 11:52 Carbon Dioxide 37 H (22-30) mmol/L BUN 41 H (7-17) mg/dL Creatinine 2.50 H (0.52-1.04) mg/dL Glucose 102 H (74-99) mg/dL POC Glucose (mg/dL) 108 H 119 H (75-99) mg/dL Calcium 7.0 L (8.4-10.2) mg/dL Assessment and Plan Plan: Assessment and plan #1 systolic congestive heart failure acute on chronic #2 nonischemic cardiomyopathy, documented ejection fraction a year ago 30-35% #3 severe mitral regurgitation #4 acute on chronic kidney disease #5 diabetes #6 history of hypertension #7 hypothyroidism #8 sleep apnea Plan We will continue current dose of IV Lasix, decrease dobutamine to 2.5, repeat chest x-ray. DNP note has been reviewed, I agree with a documented findings and plan of care. Patient was seen and examined.
[2019-08-13] MEDS: MAGNESIUM SULFATE-D5W PMX 1 GM in DEXTROSE/WATER 1 100ML.BAG IVPB SCH ×2 (12:08→13:05)
[2019-08-13] MEDS: POTASSIUM CHLORIDE ER 20 MEQ TAB.ER PO SCH ×2 (12:08→17:01)
--- NOTE | 2019-08-13 12:30 | XR ---
EXAMINATION TYPE: XR chest 1V portable DATE OF EXAM: 08/13/2019 CLINICAL HISTORY: Shortness of breath and cough. Follow up CHF. TECHNIQUE: Single AP portable upright view of the chest is obtained. COMPARISON: Chest x-ray from 2 days earlier FINDINGS: Persistent cardiomegaly with atherosclerotic thoracic aorta. Improving central vascular co ngestion is present. Persistent right basilar opacity. No pleural effusion or pneumothorax seen curre ntly. Underlying scoliotic curvature redemonstrated. IMPRESSION: Improving central vascular congestion. Cardiomegaly with persistent right basilar acute i nfiltrate and/or atelectasis noted.
[2019-08-13] MEDS: DOBUTamine DRIP 500 MG in DEXTROSE/WATER 1 250ML.BAG IV SCH (13:04)
[2019-08-13 15:14] VITALS: BMI 19.3
--- NOTE | 2019-08-13 16:48 | P.PN ---
Subjective Progress Note Date: 08/13/19 this is a pleasant 79 years old female with past medical history of COPD/asthma, heart failure and severe cardiomyopathy, diabetes mellitus, hypertension, hyperlipidemia, seizure disorder, sleep apnea on CPAP/BiPAP, hypothyroidism, bipolar disorder, anemia. Patient presents because of progressive dyspnea over 3-4 days with no associated cough or chest pain. Patient at baseline is not on home oxygen and on the presentation on admission patient has low-grade temperature of 99.7. Vitas looks stable, blood pressure 95/64 early this morning, later on went up to 100/70. Patient saturating 97% on 2 L oxygen via NC.labs show an unremarkable CBC, INR,BMP showing creatinine of 1.9, baseline is 1.5-2.1. Elevated troponin at 0.06, 0.08 and 0.06. Influenza was is negative.EKG showing normal sinus rhythm at 99 bpm and left bundle-branch block with QTC of 546. Chest x-ray: Mild congestive heart failure in the emergency room patient received 1 dose of Lasix 60 mg and 1 dose of Solu- Medrol 125 mg 08/10/2019 patient reports a rough night, not feeling well this morning. Systolic blood pressures low 80s.complaints of nausea, vomiting. EKG changes with wide-complex tachycardia.EKG pending. labs ordered/pending.denies chest pain, abdominal pain or cough.maintaining O2 sats of 97% on 2 L nasal cannula. 08/11/2019 patient had been aggressively diuresed with Lasix IV push-renal function worsened yesterday-creatinine up to 3.51, hyperkalemic, potassium 6.9- nephrology consulted. Received hyperkalemic regimen of sodium bicarb, nebulized albuterol, Kayexalate, calcium gluconate with current potassium down to 4.5. Creatinine continues to slowly trend up at 3.58. Hypotensive yesterday with pr essures continuing to drop down into the 70s, received fluid boluses.Lasix discontinued. Echo reporting moderate global hypokinesis of LV, moderately severely impaired LV function, EF 30-35%, increased left grade 3 diastolic dysfunction, severely dilated LA, severe mitral regurgitation, severe tricuspid regurgitation,severe pulmonary hypertension. Dobutamine initiated. Midodrin added.Currently receiving gentle IV fluid hydration of normal saline. Map currently 64-67. Afebrile. Denies.chest pain, palpitations. Sodium 130. 08/12/2019 maintained on dobutamine drip.diuresing well on Lasix IV push with 24-hour I&O reflecting a negative fluid balance.creatinine improving,2.97.potassium 3.1 receiving supplements.hemoglobin 9.6.denies chest pain, palpitations or shortness of breath.sodium improved, up to 138.CODE STATUS changed to no code last night. 08/13/2019 Feeling better, diet intake fluctuating. Ambulating with walker, tolerating exertion well. Denies pain. Denies chest pain or palpitations. diuresing well on Lasix IV push with 24-hour I&O reflecting a negative fluid balance.creatinine 2.5. Maintained on dobutamine-dose decreased further today.Map 65.maintaining O2 sats in the high 90s on 2 L nasal cannula.potassium 3.7, magnesium 1.6. Objective - Vital Signs Vital signs: Vital Signs Temp 97.8 F 08/13/19 12:00 Pulse 76 08/13/19 12:00 Resp 16 08/13/19 12:00 BP 83/56 08/13/19 12:00 Pulse Ox 100 08/13/19 12:00 Intake & Output 08/12/19 08/13/19 08/13/19 18:59 06:59 18:59 Intake Total 240 100 765.819 Output Total 2650 1200 Balance -2410 -1100 765.819 Weight 47.9 kg 47.9 kg Intake: Intake, IV Titration 165.819 Amount DOBUTamine DRIP 500 mg In 165.819 Dextrose/Water 1 250ml. bag @ 2.5 MCG/KG/MIN 4. 028 mls/hr IV .Q24H [facility] Rx#:[id number] Oral 240 100 600 Output: Urine 2650 1200 Other: Voiding Method Indwelling Catheter Indwelling Catheter Indwelling Catheter - Exam GENERAL: The patient is alert and oriented x3,no acute distress HEENT: Pupils are round and equally reacting to light. EOMI. No scleral icterus. No conjunctival pallor. Normocephalic, atraumatic. No pharyngeal erythema. No thyromegaly. CARDIOVASCULAR: S1 and S2 present. systolic murmur, no rubs, or gallops. PULMONARY: Bilateral basal crepitation ABDOMEN: Soft, nontender, nondistended, normoactive bowel sounds. No palpable organomegaly. MUSCULOSKELETAL: No joint swelling or deformity. EXTREMITIES: No cyanosis, clubbing, or pedal edema. no calf tenderness. NEUROLOGICAL: Gross neurological examination did not reveal any focal deficits. SKIN: No rashes. - Labs CBC & Chem 7: 08/12/19 06:16 08/13/19 06:23 Labs: Abnormal Lab Results - Last 24 Hours (Table) 08/12/19 08/12/19 08/13/19 Range/Units 16:54 21:11 06:05 Carbon Dioxide (22-30) mmol/L BUN (7-17) mg/dL Creatinine (0.52-1.04) mg/dL Glucose (74-99) mg/dL POC Glucose (mg/dL) 133 H 245 H 108 H (75-99) mg/dL Calcium (8.4-10.2) mg/dL 08/13/19 08/13/19 Range/Units 06:23 11:52 Carbon Dioxide 37 H (22-30) mmol/L BUN 41 H (7-17) mg/dL Creatinine 2.50 H (0.52-1.04) mg/dL Glucose 102 H (74-99) mg/dL POC Glucose (mg/dL) 119 H (75-99) mg/dL Calcium 7.0 L (8.4-10.2) mg/dL Assessment and Plan Assessment: acute on chronic systolic heart failure, ejection fraction 30-35% severe mitral and tricuspid regurgitation severe pulmonary hypertension Nonischemic cardiomyopathy Wide complex tachycardia chronically elevated troponin EKG showing left bundle-branch block with prolonged QTC acute on chronic kidney disease,stage III,Baseline creatinine around 1.6.,worsening secondary to ATN related to diuresing, hypotension Diabetes mellitus hyponatremia secondary to acute renal failure hypotension Hypertension,history of Hyperlipidemia seizure disorder sleep apnea on CPAP/BiPAP Hypothyroidism Bipolar disorder COPD/asthma hyperkalemia secondary to acute renal failure,poor oral intake, potassium supplementation, hypokalemia metabolic acidosis secondary to acute renal failure hyperparathyroidism, primary. No Code plan: Continue on current medication regime ,midodrin,monitoring and symptomatic treatment. Diuretics,electrolyte replacement as per nephrology. Dobutamine as per cardiology.close monitoring of electrolytes, renal function with repeat labs ordered for a.m. Prognosis guarded given multiple complex medical issues. The impression and plan of care has been dictated as directed. : I performed a history and examination of this patient, discussed the same with the dictator. I agree with the dictator's note ,documented as a scribe. Any additional findings or plans will be noted.
[2019-08-13 17:09] LABS: Glucose,Whole Blood 146 mg/dL (75-99)
[2019-08-13 20:52] LABS: Glucose,Whole Blood 219 mg/dL (75-99)
[2019-08-13] MEDS: lamoTRIgine 100 MG TAB PO SCH (21:35)
[2019-08-13] MEDS: LORazepam 0.5 MG TAB PO SCH (21:35)
[2019-08-14] MEDS: IPRATROPIUM-ALBUTEROL 3 ML NEB INHALATION SCH ×7 (01:21→23:24)
[2019-08-14 06:12] LABS: Glucose,Whole Blood 190 mg/dL (75-99)
[2019-08-14] MEDS: MIDODRINE 5 MG TAB PO SCH ×3 (06:31→16:55)
[2019-08-14] MEDS: INSULIN ASPART (NovoLOG) 100 UNIT/ML VIAL SQ SCH ×4 (06:32→22:34)
[2019-08-14] MEDS: LEVOTHYROXINE 50 MCG TAB PO SCH (06:32)
[2019-08-14 06:56] LABS: Calcium 7.8 mg/dL (8.4-10.2); Magnesium 2.3 mg/dL (1.6-2.3); Potassium 5.8 mmol/L (3.5-5.1)
[2019-08-14] MEDS: MAGNESIUM OXIDE 400 MG TAB PO SCH (07:44)
[2019-08-14] MEDS: BUDESONIDE 0.5 MG/2 ML NEBU INHALATION SCH ×2 (08:28→20:28)
[2019-08-14] MEDS: ZIPRASIDONE 40 MG CAP PO SCH ×2 (09:33→22:35)
[2019-08-14] MEDS: FERROUS SULFATE 325 MG TAB PO SCH (09:34)
[2019-08-14] MEDS: HEPARIN SODIUM,PORCINE 5,000 UNIT/ML 1 ML VIAL SQ SCH ×2 (09:34→22:34)
[2019-08-14] MEDS: ASPIRIN 81 MG PO SCH (09:34)
[2019-08-14] MEDS: SERTRALINE 100 MG TAB PO SCH ×2 (09:34→22:35)
[2019-08-14] MEDS: FAMOTIDINE 20 MG TAB PO SCH (09:34)
[2019-08-14] MEDS: ALLOPURINOL 100 MG TAB PO SCH (09:34)
[2019-08-14] MEDS: FUROSEMIDE 10 MG/ML 10 ML VIAL IV SCH ×2 (09:36→12:56)
[2019-08-14 12:12] LABS: Glucose,Whole Blood 240 mg/dL (75-99)
[2019-08-14] MEDS ORDERED: METOLAZONE 2.5 MG TAB PO STA (12:37)
[2019-08-14] MEDS ORDERED: METOLAZONE 2.5 MG TAB PO SCH (12:45)
--- NOTE | 2019-08-14 13:03 | P.PN ---
Subjective Progress Note Date: 08/14/19 This is a pleasant 79-year-old female who follows regularly with Dr. Jese Tyler in the office. She has a known history of hypertension, hyperlipidemia, chronic kidney disease, diabetes, asthma, hypothyroidism, severe mitral regurgitation. She underwent cardiac catheterization in December 2016 which revealed no significant obstructive disease. She also has a history of nonischemic cardiomyopathy her most recent echo was performed in December 2017 which revealed an ejection fraction of 30-35%, severe global hypokinesia. Severe mitral regurgitation and moderate tricuspid regurgitation. She presents to the hospital on this occasion with symptoms of progressively worsening shortness of breath. She states that on she began to get short of breath and progressively worsened since that time. Positive PND and orthopnea. Chest x- ray on arrival here showed congestive heart failure. Her EKG showed a normal sinus rhythm with a left bundle-branch block pattern, nonspecific ST-T wave changes. Blood pressure 95/60 with a heart rate in the 80s to 90s, 97% on 2 L of oxygen. Admission labs, white blood cell count 7.3, hemoglobin 11, platelet count 195. Sodium 135, potassium 4.6, BUN 31, creatinine 1.9. BNP level on arrival 19,200. Troponins 0.069, 0.058, 0.063. Patient was initiated on IV Lasix on arrival here, she's been diuresing well. At the time of my examination this morning patient states that her breathing has already significantly improved from arrival here. 08/13/2019 Patient was seen and examined this morning and overall is doing significantly better. Blood pressure 86/50 with a heart rate in the 90s to low 100s, 96% on 2 L of oxygen.she continues to be on IV Lasix 80 mg every 12 hourly as well as dobutamine at 2.5.laboratory data from today, sodium 142, potassium 3.7, BUN 41 and creatinine 2.5, magnesium is 1.6 today 08/14/2019 Patient was seen and examined this morning, she is feeling well according to her slept well through the night last night. This morning her urine output has diminished.let pressure 78/40, 82/40, heart rate in the 90s, 100% on room air.sodium is 138 with a potassium of 5.8, BUN 44 creatinine 2.7. Objective - Vital Signs Vital signs: Vital Signs Temp 97.6 F 08/14/19 12:00 Pulse 92 08/14/19 12:22 Resp 18 08/14/19 12:00 BP 82/45 08/14/19 12:00 Pulse Ox 100 08/14/19 12:00 Intake & Output 08/13/19 08/14/19 08/14/19 18:59 06:59 18:59 Intake Total 885.819 120 Output Total 475 Balance 885.819 -355 Weight 47.9 kg 51.3 kg Intake: Intake, IV Titration 165.819 Amount DOBUTamine DRIP 500 mg In 165.819 Dextrose/Water 1 250ml. bag @ 2.5 MCG/KG/MIN 4. 028 mls/hr IV .Q24H [facility] Rx#:[id number] Oral 720 120 Output: Urine 475 Other: Voiding Method Indwelling Catheter Indwelling Catheter Indwelling Catheter - Exam PHYSICAL EXAMINATION: GENERAL: 79-year-old female in no acute distress at the time of my examination HEENT: Head is atraumatic, normocephalic. Pupils equal, round. Sclera anicter ic. Conjunctiva are clear. Mucous membranes of the mouth are moist. Neck is supple. There is elevated jugular venous pressure. No carotid bruit is heard. HEART EXAMINATION: Heart S1 and S2 with holosystolic murmur is heard at the apex CHEST EXAMINATION: Lungs are clear with diminished air entry to the bases ABDOMEN: Soft, nontender. Bowel sounds are heard. No organomegaly noted. EXTREMITIES: 2+ peripheral pulses with no evidence of peripheral edema and no calf tenderness noted. NEUROLOGIC patient is awake, alert and oriented 3 . - Labs CBC & Chem 7: 08/12/19 06:16 08/14/19 06:21 Labs: Abnormal Lab Results - Last 24 Hours (Table) 08/13/19 08/13/19 08/14/19 Range/Units 17:07 20:51 06:10 Potassium (3.5-5.1) mmol/L Chloride (98-107) mmol/L BUN (7-17) mg/dL Creatinine (0.52-1.04) mg/dL Glucose (74-99) mg/dL POC Glucose (mg/dL) 146 H 219 H 190 H (75-99) mg/dL Calcium (8.4-10.2) mg/dL 08/14/19 08/14/19 Range/Units 06:21 12:09 Potassium 5.8 H (3.5-5.1) mmol/L Chloride 96 L (98-107) mmol/L BUN 44 H (7-17) mg/dL Creatinine 2.74 H (0.52-1.04) mg/dL Glucose 183 H (74-99) mg/dL POC Glucose (mg/dL) 240 H (75-99) mg/dL Calcium 7.8 L (8.4-10.2) mg/dL Assessment and Plan Plan: Assessment and plan #1 systolic congestive heart failure acute on chronic #2 nonischemic cardiomyopathy, documented ejection fraction a year ago 30-35% #3 severe mitral regurgitation #4 acute on chronic kidney disease #5 diabetes #6 history of hypertension #7 hypothyroidism #8 sleep apnea Plan cardiology's perspective, we'll recommend to continue the IV Lasix at 80 mg IV twice a day, give one dose of Zaroxolyn 2-1/2 mg now. Increase dobutamine to 5 g. Monitor the intake and output closely, check lytes BUN and creatinine in the morning. Overall prognosis is guarded. DNP note has been reviewed, I agree with a documented findings and plan of care. Patient was seen and examined.
--- NOTE | 2019-08-14 13:18 | P.PN ---
Subjective Patient is seen in follow-up for acute kidney injury on chronic kidney disease. Patient has chronic kidney disease stage III with baseline creatinine in the range of 1.4-1.7 secondary to nephrosclerosis. She is maintained on dobutamine drip and IV Lasix 80 mg 2 times daily. Renal function is a little worse today - cr 2.74. She has a Tinsley catheter. Urine output 3.8 L in the last 24 hours. Denies active chest pain or shortness of breath. Feels better today. Patient has systolic CHF with ejection fraction of 30-35% with severe mitral and tr icuspid regurgitation. Vital signs are stable. General: The patient appeared well nourished and normally developed. HEENT: Head exam is unremarkable. Neck is without jugular venous distension. LUNGS: Breath sounds decreased. HEART: Rate and Rhythm are regular. First and second heart sounds normal. No murmurs, rubs or gallops. ABDOMEN: Abdominal exam reveals normal bowel sounds. Non-tender and non- distended. No evidence of peritonitis. EXTREMITITES: No clubbing, cyanosis, or edema. Objective - Vital Signs Vital signs: Vital Signs Temp 97.6 F 08/14/19 12:00 Pulse 92 08/14/19 12:22 Resp 18 08/14/19 12:00 BP 82/45 08/14/19 12:00 Pulse Ox 100 08/14/19 12:00 Intake & Output 08/13/19 08/14/19 08/14/19 18:59 06:59 18:59 Intake Total 885.819 120 Output Total 475 Balance 885.819 -355 Weight 47.9 kg 51.3 kg Intake: Intake, IV Titration 165.819 Amount DOBUTamine DRIP 500 mg In 165.819 Dextrose/Water 1 250ml. bag @ 2.5 MCG/KG/MIN 4. 028 mls/hr IV .Q24H [facility] Rx#:[id number] Oral 720 120 Output: Urine 475 Other: Voiding Method Indwelling Catheter Indwelling Catheter Indwelling Catheter - Labs CBC & Chem 7: 08/12/19 06:16 08/14/19 06:21 Labs: Abnormal Lab Results - Last 24 Hours (Table) 08/13/19 08/13/19 08/14/19 Range/Units 17:07 20:51 06:10 Potassium (3.5-5.1) mmol/L Chloride (98-107) mmol/L BUN (7-17) mg/dL Creatinine (0.52-1.04) mg/dL Glucose (74-99) mg/dL POC Glucose (mg/dL) 146 H 219 H 190 H (75-99) mg/dL Calcium (8.4-10.2) mg/dL 08/14/19 08/14/19 Range/Units 06:21 12:09 Potassium 5.8 H (3.5-5.1) mmol/L Chloride 96 L (98-107) mmol/L BUN 44 H (7-17) mg/dL Creatinine 2.74 H (0.52-1.04) mg/dL Glucose 183 H (74-99) mg/dL POC Glucose (mg/dL) 240 H (75-99) mg/dL Calcium 7.8 L (8.4-10.2) mg/dL Assessment and Plan Plan: Assessment: 1. Acute kidney injury secondary to ATN secondary to hypotension and cardiorenal syndrome. Creatinine peaked at 3.5 at this admission and came down to 2.5 - 2.74 today. 2. Chronic kidney disease stage III with baseline creatinine in the range of 1.4-1.7 secondary to nephrosclerosis. 3. Acute on chronic systolic CHF with ejection fraction of 30-35% with severe mitral and tricuspid regurgitation. 4. Hyponatremia secondary to acute kidney injury. Hypervolemic. Better. 5. Metabolic acidosis secondary to acute kidney injury. Resolved. Now alkalotic due to diuresis. 6. Hypokalemia secondary to diuresis. Magnesium normal. Potassium on higher side today. 7. Diabetes mellitus. 8. Primary hyperparathyroidism. Calcium on the lower side. Sensipar held. 9. Severe pulmonary hypertension. 10. Hypomagnesemia due to diuresis. Improved. Plan: Continue dobutamine per cardiology. Change lasix to 80 mg po bid. Maintain midodrine. Continue to monitor renal function and urine output closely. Monitor potassium. Repeat level this evening.
--- NOTE | 2019-08-14 17:24 | P.PN ---
Subjective Progress Note Date: 08/14/19 this is a pleasant 79 years old female with past medical history of COPD/asthma, heart failure and severe cardiomyopathy, diabetes mellitus, hypertension, hyperlipidemia, seizure disorder, sleep apnea on CPAP/BiPAP, hypothyroidism, bipolar disorder, anemia. Patient presents because of progressive dyspnea over 3-4 days with no associated cough or chest pain. Patient at baseline is not on home oxygen and on the presentation on admission patient has low-grade temperature of 99.7. Vitas looks stable, blood pressure 95/64 early this morning, later on went up to 100/70. Patient saturating 97% on 2 L oxygen via NC.labs show an unremarkable CBC, INR,BMP showing creatinine of 1.9, baseline is 1.5-2.1. Elevated troponin at 0.06, 0.08 and 0.06. Influenza was is negative.EKG showing normal sinus rhythm at 99 bpm and left bundle-branch block with QTC of 546. Chest x-ray: Mild congestive heart failure in the emergency room patient received 1 dose of Lasix 60 mg and 1 dose of Solu- Medrol 125 mg 08/10/2019 patient reports a rough night, not feeling well this morning. Systolic blood pressures low 80s.complaints of nausea, vomiting. EKG changes with wide-complex tachycardia.EKG pending. labs ordered/pending.denies chest pain, abdominal pain or cough.maintaining O2 sats of 97% on 2 L nasal cannula. 08/11/2019 patient had been aggressively diuresed with Lasix IV push-renal function worsened yesterday-creatinine up to 3.51, hyperkalemic, potassium 6.9- nephrology consulted. Received hyperkalemic regimen of sodium bicarb, nebulized albuterol, Kayexalate, calcium gluconate with current potassium down to 4.5. Creatinine continues to slowly trend up at 3.58. Hypotensive yesterday with pr essures continuing to drop down into the 70s, received fluid boluses.Lasix discontinued. Echo reporting moderate global hypokinesis of LV, moderately severely impaired LV function, EF 30-35%, increased left grade 3 diastolic dysfunction, severely dilated LA, severe mitral regurgitation, severe tricuspid regurgitation,severe pulmonary hypertension. Dobutamine initiated. Midodrin added.Currently receiving gentle IV fluid hydration of normal saline. Map currently 64-67. Afebrile. Denies.chest pain, palpitations. Sodium 130. 08/12/2019 maintained on dobutamine drip.diuresing well on Lasix IV push with 24-hour I&O reflecting a negative fluid balance.creatinine improving,2.97.potassium 3.1 receiving supplements.hemoglobin 9.6.denies chest pain, palpitations or shortness of breath.sodium improved, up to 138.CODE STATUS changed to no code last night. 08/13/2019 Feeling better, diet intake fluctuating. Ambulating with walker, tolerating exertion well. Denies pain. Denies chest pain or palpitations. diuresing well on Lasix IV push with 24-hour I&O reflecting a negative fluid balance.creatinine 2.5. Maintained on dobutamine-dose decreased further today.Map 65.maintaining O2 sats in the high 90s on 2 L nasal cannula.potassium 3.7, magnesium 1.6. 08/14/2019 slept well last night, sitting up eating breakfast. Denies nausea vomiting or diarrhea. Map 54. Maintained on Lasix IV push, 24-hour I&O reflecting significantly decreased urine output. Creatinine mildly worsened at 2.74. Dobutamine dose increased. Denies chest pain, palpitations. Objective - Vital Signs Vital signs: Vital Signs Temp 97.8 F 08/14/19 16:00 Pulse 94 08/14/19 16:56 Resp 18 08/14/19 16:00 BP 88/52 08/14/19 16:00 Pulse Ox 96 08/14/19 16:00 Intake & Output 08/13/19 08/14/19 08/14/19 18:59 06:59 18:59 Intake Total 885.819 120 Output Total 475 Balance 885.819 -355 Weight 47.9 kg 51.3 kg Intake: Intake, IV Titration 165.819 Amount DOBUTamine DRIP 500 mg In 165.819 Dextrose/Water 1 250ml. bag @ 2.5 MCG/KG/MIN 4. 028 mls/hr IV .Q24H [facility] Rx#:[id number] Oral 720 120 Output: Urine 475 Other: Voiding Method Indwelling Catheter Indwelling Catheter Indwelling Catheter - Exam GENERAL: The patient is alert and oriented x3, sitting up at bedside, no acute distress HEENT: Pupils are round and equally reacting to light. EOMI. No scleral icterus. No conjunctival pallor. Normocephalic, atraumatic. No pharyngeal erythema. No thyromegaly. CARDIOVASCULAR: S1 and S2 present. systolic murmur, no rubs, or gallops. PULMONARY: Bilateral lungs diminished ABDOMEN: Soft, nontender, nondistended, normoactive bowel sounds. No palpable organomegaly. MUSCULOSKELETAL: No joint swelling or deformity. EXTREMITIES: No cyanosis, clubbing, or pedal edema. no calf tenderness. NEUROLOGICAL: Gross neurological examination did not reveal any focal deficits. SKIN: No rashes. - Labs CBC & Chem 7: 08/12/19 06:16 08/14/19 06:21 Labs: Abnormal Lab Results - Last 24 Hours (Table) 08/13/19 08/14/19 08/14/19 Range/Units 20:51 06:10 06:21 Potassium 5.8 H (3.5-5.1) mmol/L Chloride 96 L (98-107) mmol/L BUN 44 H (7-17) mg/dL Creatinine 2.74 H (0.52-1.04) mg/dL Glucose 183 H (74-99) mg/dL POC Glucose (mg/dL) 219 H 190 H (75-99) mg/dL Calcium 7.8 L (8.4-10.2) mg/dL 08/14/19 Range/Units 12:09 Potassium (3.5-5.1) mmol/L Chloride (98-107) mmol/L BUN (7-17) mg/dL Creatinine (0.52-1.04) mg/dL Glucose (74-99) mg/dL POC Glucose (mg/dL) 240 H (75-99) mg/dL Calcium (8.4-10.2) mg/dL Assessment and Plan Assessment: acute on chronic systolic heart failure, ejection fraction 30-35% severe mitral and tricuspid regurgitation severe pulmonary hypertension Nonischemic cardiomyopathy Wide complex tachycardia chronically elevated troponin EKG showing left bundle-branch block with prolonged QTC acute on chronic kidney disease,stage III,Baseline creatinine around 1.6.,worsening secondary to ATN related to diuresing, hypotension Diabetes mellitus hyponatremia secondary to acute renal failure hypotension Hypertension,history of Hyperlipidemia seizure disorder sleep apnea on CPAP/BiPAP Hypothyroidism Bipolar disorder COPD/asthma hyperkalemia secondary to acute renal failure,poor oral intake, potassium supplementation, hypokalemia metabolic acidosis secondary to acute renal failure hyperparathyroidism, primary. No Code plan: Continue on current medication regime ,midodrin,monitoring and symptomatic treatment. Diuretics,electrolyte replacement as per nephrology. Lasix converted to oral. Dobutamine as per cardiology.close monitoring of electrolytes, renal function with repeat labs ordered for a.m. Prognosis guarded given multiple complex medical issues. The impression and plan of care has been dictated as directed. : I performed a history and examination of this patient, discussed the same with the dictator. I agree with the dictator's note ,documented as a scribe. Any additional findings or plans will be noted.
[2019-08-14 17:40] LABS: Glucose,Whole Blood 130 mg/dL (75-99)
[2019-08-14 20:50] LABS: Glucose,Whole Blood 171 mg/dL (75-99)
[2019-08-14] MEDS: DOBUTamine DRIP 500 MG in DEXTROSE/WATER 1 250ML.BAG IV SCH (22:00)
[2019-08-14] MEDS: LORazepam 0.5 MG TAB PO SCH (22:23)
[2019-08-14] MEDS: lamoTRIgine 100 MG TAB PO SCH (22:34)
[2019-08-14] MEDS ORDERED: INSULIN REGULAR 100 UNIT/ML VIAL IV ONE (23:03)
[2019-08-14] MEDS ORDERED: DEXTROSE 10 % IN WATER 250 ML IV STA (23:04)
[2019-08-14] MEDS: FUROSEMIDE 80 MG TAB PO SCH (23:14)
[2019-08-15 01:57] LABS: Glucose,Whole Blood 88 mg/dL (75-99)
--- NOTE | 2019-08-15 02:23 | XR ---
EXAMINATION TYPE: XR chest 1V portable DATE OF EXAM: 08/15/2019 COMPARISON: 08/13/2019 HISTORY: Short of breath TECHNIQUE: Single view FINDINGS: Heart is enlarged. There is pulmonary vascular congestion. There is blunting of the right c ostophrenic angle. There are chest leads. Thoracic aorta is atheromatous. Right lower lobe pneumonia. IMPRESSION: Congestive heart failure with right pleural effusion. No change.
[2019-08-15 02:47] LABS: Anisocytosis Slight; HCT 33.8 % (34.0-46.0); HGB 10.8 gm/dL (11.4-16.0); Hypochromasia Marked; MCH 33.5 pg (25.0-35.0); MCHC 31.9 g/dL (31.0-37.0); MCV 105.1 fL (80.0-100.0); Macrocytosis Moderate; Mean Platelet Volume 11.3; Platelet Count 122 k/uL (150-450); RBC 3.21 m/uL (3.80-5.40); RDW 17.4 % (11.5-15.5)
[2019-08-15 03:05] LABS: Lymphocytes # (M) 0.72 k/uL (1.0-4.8); Monocytes # (M) 2.04 k/uL (0-1.0); Neutrophils # (M) 9.24 k/uL (1.3-7.7); Neutrophils % (M) 77 %; Nucleated Red Blood Cells 0 /100 WBC (0-0); Polychromasia Present; Total Cells Counted 100
[2019-08-15] MEDS ORDERED: FUROSEMIDE 10 MG/ML 10 ML VIAL IV STA ×2 (03:14→03:22)
[2019-08-15 03:39] LABS: Calcium 8.1 mg/dL (8.4-10.2)
[2019-08-15] MEDS: IPRATROPIUM-ALBUTEROL 3 ML NEB INHALATION SCH ×4 (03:43→15:22)
[2019-08-15] MEDS ORDERED: SODIUM POLYSTYRENE SULFONATE 15 GM/60 ML BOTTLE PO STA (05:06)
[2019-08-15 05:40] LABS: Glucose,Whole Blood 81 mg/dL (75-99)
[2019-08-15] MEDS: MIDODRINE 5 MG TAB PO SCH ×3 (05:53→14:17)
[2019-08-15] MEDS: INSULIN ASPART (NovoLOG) 100 UNIT/ML VIAL SQ SCH ×2 (05:53→12:21)
[2019-08-15 06:08] LABS: Glucose,Whole Blood 84 mg/dL (75-99)
[2019-08-15] MEDS: LEVOTHYROXINE 50 MCG TAB PO SCH (06:16)
[2019-08-15] MEDS: BUDESONIDE 0.5 MG/2 ML NEBU INHALATION SCH (07:24)
[2019-08-15 08:57] VITALS: RESP 18
[2019-08-15 09:17] LABS: Appearance,Urine Turbid (Clear); Bacteria,Urine Many /hpf; Bilirubin,Urine Negative (Negative); Blood,Urine Moderate (Negative); Budding Yeast,Urine Many /hpf; Color,Urine Dark Brown; Glucose,Urine (UA) Negative (Negative); Ketones,Urine Negative (Negative); Leukocyte Esterase,Urine Large (Negative); Nitrite,Urine Negative (Negative); PH, Urine 7.5 (5.0-8.0); Protein,Urine 2+ (Negative); RBC,Urine 164 /hpf (0-5); Specific Gravity,Urine 1.019 (1.001-1.035); Squamous Epithelial Cell,Urine 2 /hpf (0-4); WBC,Urine >182 /hpf (0-5)
[2019-08-15] MEDS: SERTRALINE 100 MG TAB PO SCH (10:13)
[2019-08-15] MEDS: ASPIRIN 81 MG PO SCH (10:13)
[2019-08-15] MEDS: HEPARIN SODIUM,PORCINE 5,000 UNIT/ML 1 ML VIAL SQ SCH (10:13)
[2019-08-15] MEDS: FAMOTIDINE 20 MG TAB PO SCH (10:13)
[2019-08-15] MEDS: ALLOPURINOL 100 MG TAB PO SCH (10:14)
[2019-08-15] MEDS: MAGNESIUM OXIDE 400 MG TAB PO SCH (10:14)
[2019-08-15] MEDS: FERROUS SULFATE 325 MG TAB PO SCH (10:14)
--- NOTE | 2019-08-15 10:39 | P.PN ---
Subjective Progress Note Date: 08/15/19 Principal diagnosis: This is a 79-year-old female with severe hypotension, cardiomyopathy nonischemic with ejection fraction of 30%, multi-valvular dysfunction with mitral and tric uspid severe regurgitation and severe pulmonary hypertension in the range of 90. Her hypertension is not explained by any abnormal thyroid or adrenal function these are tested last night and TSH was 3.7 and free cortisol was greater than 120. Echocardiogram confirmed the above findings Blood pressure remains low at urine output was significant with nearly 5 L and 4 L on 2 consecutive days on 1818 and on 08/13/2019 but subsequently dropped to 4 75 mL and 345 mL. Last night her pressure was 68 systolic. Her Lasix was held and she became short of breath and therefore Lasix was resumed. She is currently on dobutamine drip. Last night workup also included blood cultures urine cultures, urinalysis suggestive of urinary tract infection but she has a Tinsley catheter. Lactic acid was 7. Her white count was 12,000. She was given ceftriaxone IV 1 g to cover any possible septic syndrome. This morning she remains very L, tired and weak short of breath. No appetite. Objective - Vital Signs Vital signs: Vital Signs Temp 99.2 F 08/15/19 08:55 Pulse 99 08/15/19 08:55 Resp 18 08/15/19 08:55 BP 76/50 08/15/19 08:55 Pulse Ox 99 08/15/19 08:55 Intake & Output 08/14/19 08/15/19 08/15/19 18:59 06:59 18:59 Intake Total 620 132.655 Output Total 300 45 5 Balance 320 87.655 -5 Weight 64 kg Intake: Intake, IV Titration 132.655 Amount DOBUTamine DRIP 500 mg In 132.655 Dextrose/Water 1 250ml. bag @ 5 MCG/KG/MIN 8.055 mls/hr IV .Q24H [facility] Rx#: [id number] Oral 620 Output: Urine 300 45 5 Uretheral (Tinsley) 45 5 Other: Voiding Method Indwelling Catheter Indwelling Catheter Indwelling Catheter On examination she is weak tired and cachexia HEENT exam no JVP neck is supple no facial asymmetry Lungs are clear to auscultation with occasional bibasilar crackles Heart sounds are unremarkable for any murmur rub gallop Abdomen soft nontender Extremity exam was no edema Neurologically profoundly weak arousable moves all her extremities - Labs CBC & Chem 7: 08/15/19 02:12 08/15/19 03:02 Labs: Abnormal Lab Results - Last 24 Hours (Table) 08/14/19 08/14/19 08/14/19 Range/Units 12:09 17:13 17:24 WBC (3.8-10.6) k/uL RBC (3.80-5.40) m/uL Hgb (11.4-16.0) gm/dL Hct (34.0-46.0) % MCV (80.0-100.0) fL RDW (11.5-15.5) % Plt Count (150-450) k/uL Neutrophils # (Manual) (1.3-7.7) k/uL Lymphocytes # (Manual) (1.0-4.8) k/uL Monocytes # (Manual) (0-1.0) k/uL Potassium 5.9 H (3.5-5.1) mmol/L Chloride (98-107) mmol/L BUN (7-17) mg/dL Creatinine (0.52-1.04) mg/dL POC Glucose (mg/dL) 240 H 130 H (75-99) mg/dL Plasma Lactic Acid Carlos (0.7-2.0) mmol/L Calcium (8.4-10.2) mg/dL Phosphorus (2.5-4.5) mg/dL Urine Appearance (Clear) Urine Protein (Negative) Urine Blood (Negative) Ur Leukocyte Esterase (Negative) Urine RBC (0-5) /hpf Urine WBC (0-5) /hpf Urine WBC Clumps (None) /hpf Urine Bacteria (None) /hpf Urine Yeast (Budding) (None) /hpf 08/14/19 08/15/19 08/15/19 Range/Units 20:49 02:12 03:02 WBC 12.0 H (3.8-10.6) k/uL RBC 3.21 L (3.80-5.40) m/uL Hgb 10.8 L (11.4-16.0) gm/dL Hct 33.8 L (34.0-46.0) % MCV 105.1 H (80.0-100.0) fL RDW 17.4 H (11.5-15.5) % Plt Count 122 L (150-450) k/uL Neutrophils # (Manual) 9.24 H (1.3-7.7) k/uL Lymphocytes # (Manual) 0.72 L (1.0-4.8) k/uL Monocytes # (Manual) 2.04 H (0-1.0) k/uL Potassium 6.0 H (3.5-5.1) mmol/L Chloride 94 L (98-107) mmol/L BUN 54 H (7-17) mg/dL Creatinine 4.18 H (0.52-1.04) mg/dL POC Glucose (mg/dL) 171 H (75-99) mg/dL Plasma Lactic Acid Carlos (0.7-2.0) mmol/L Calcium 8.1 L (8.4-10.2) mg/dL Phosphorus 6.0 H (2.5-4.5) mg/dL Urine Appearance (Clear) Urine Protein (Negative) Urine Blood (Negative) Ur Leukocyte Esterase (Negative) Urine RBC (0-5) /hpf Urine WBC (0-5) /hpf Urine WBC Clumps (None) /hpf Urine Bacteria (None) /hpf Urine Yeast (Budding) (None) /hpf 08/15/19 08/15/19 08/15/19 Range/Units 05:33 08:45 09:39 WBC (3.8-10.6) k/uL RBC (3.80-5.40) m/uL Hgb (11.4-16.0) gm/dL Hct (34.0-46.0) % MCV (80.0-100.0) fL RDW (11.5-15.5) % Plt Count (150-450) k/uL Neutrophils # (Manual) (1.3-7.7) k/uL Lymphocytes # (Manual) (1.0-4.8) k/uL Monocytes # (Manual) (0-1.0) k/uL Potassium (3.5-5.1) mmol/L Chloride (98-107) mmol/L BUN (7-17) mg/dL Creatinine (0.52-1.04) mg/dL POC Glucose (mg/dL) (75-99) mg/dL Plasma Lactic Acid Carlos 7.0 H* 5.6 H* (0.7-2.0) mmol/L Calcium (8.4-10.2) mg/dL Phosphorus (2.5-4.5) mg/dL Urine Appearance Turbid H (Clear) Urine Protein 2+ H (Negative) Urine Blood Moderate H (Negative) Ur Leukocyte Esterase Large H (Negative) Urine RBC 164 H (0-5) /hpf Urine WBC >182 H (0-5) /hpf Urine WBC Clumps Many H (None) /hpf Urine Bacteria Many H (None) /hpf Urine Yeast (Budding) Many H (None) /hpf Assessment and Plan Assessment: Impression 1. Acute kidney injury secondary to hypotension and cardiorenal syndrome. Worsening renal function with oliguria in spite of dobutamine and on large doses of Lasix. 2. continues to be in congestive heart failure. 3. Hyperkalemia secondary acute kidney injury. 4. Non-ischemic cardiopathy myopathy ejection fraction 30-35% with severe mitral and tricuspid regurgitation Recommendation 1. Discussed in detail with family regarding the prognosis. Son and [id number] are in the room 2. Discuss with hospitalist regarding her prognosis 3. Because of the poor overall status and hypotension she is a poor candidate for any kind of dialysis therapy including slow low efficiency dialysis 4. We'll try to control her hyperkalemia with usual conservative measures. 5. I would hold the Lasix and gently hydrated with normal saline at 50 mL an hour and see if she will improve 6. Consideration for comfort care should be given unless there is a surgical intervention or vaccine customer representative: Recommendation that could improve her prognosis 7. Discontinue Midrin as she is on dobutamine
[2019-08-15] MEDS ORDERED: SODIUM CHLORIDE 0.9% 1,000 ML IV SCH (10:45)
[2019-08-15] MEDS ORDERED: SODIUM POLYSTYRENE SULFONATE 15 GM/60 ML BOTTLE PO ONE (11:00)
[2019-08-15] MEDS: ZIPRASIDONE 40 MG CAP PO SCH (11:07)
[2019-08-15] MEDS: FUROSEMIDE 80 MG TAB PO SCH (11:08)
[2019-08-15 12:12] LABS: Glucose,Whole Blood 180 mg/dL (75-99)
--- NOTE | 2019-08-15 13:46 | P.PN ---
Subjective This is a pleasant 79-year-old female past medical history significant for hypertension, dyslipidemia, chronic kidney disease, hypothyroidism, nonischemic cardiomyopathy and mitral regurgitation. She follows in the office with Dr. Tyler. She is seen and examined sitting up in bed with multiple family members at the bedside. She had a particularly difficult evening with significant hypotension and shortness of breath. Chest x-ray obtained revealed congestive heart failure with right pleural effusion. She was given a dose of IV Lasix above 100 mg. Laboratory data reviewed, WBC 12, hemoglobin 10.8, platelets 122, sodium 137, potassium 6.0, creatinine 4.18, lactic acid 7.0 with a repeat of 5.6 after a 500 mL bolus and TSH 3.49. Blood pressure through the night was 76/50 and 69/53. This morning she is alert and communicating with a blood pressure of 94/58. Currently maintained on aspirin 81 mg daily, dobutamine at 5 mcg/kg/min and Midodrine 10 mg 3 times a day. GENERAL: Well-appearing, well-nourished and in no acute distress. NECK: Supple without JVD or thyromegaly. LUNGS: Breath sounds clear to auscultation bilaterally. Respiration equal and unlabored. No wheezes, rales or rhonchi. HEART: Regular rate and rhythm with systolic ejection murmur at the left sternal border and apex, no rubs or gallops. S1 and S2 heard. EXTREMITIES: Normal range of motion, no edema. No clubbing or cyanosis. Peripheral pulses intact. ASSESSMENT Acute on chronic systolic heart failure Nonischemic cardiomyopathy, ejection fraction 30-35% Leukocytosis Hyperkalemia Valvular heart disease Acute on chronic kidney disease Lactic acidosis Profound hypotension Diabetes mellitus Dyslipidemia PLAN Lengthy discussion with the patient and the family members regarding the long- term prognosis is very poor. They are currently considering hospice care. Nurse Practitioner note has been reviewed, I agree with a documented findings and plan of care. Patient was seen and examined. Objective - Vital Signs Vital signs: Vital Signs Temp 99.3 F 08/15/19 12:00 Pulse 60 08/15/19 12:00 Resp 18 08/15/19 12:00 BP 94/58 08/15/19 12:00 Pulse Ox 98 08/15/19 12:00 Intake & Output 08/14/19 08/15/19 08/15/19 18:59 06:59 18:59 Intake Total 620 132.655 40 Output Total 300 45 5 Balance 320 87.655 35 Weight 64 kg Intake: Intake, IV Titration 132.655 40 Amount DOBUTamine DRIP 500 mg In 132.655 Dextrose/Water 1 250ml. bag @ 10 MCG/KG/MIN 16.11 mls/hr IV .[id number] [facility] Rx#:[id number] Sodium Chloride 0.9% 1, 40 000 ml @ 50 mls/hr IV . Q20H [facility] Rx#:[id number] Oral 620 Output: Urine 300 45 5 Uretheral (Tinsley) 45 5 Other: Voiding Method Indwelling Catheter Indwelling Catheter Indwelling Catheter - Labs CBC & Chem 7: 08/15/19 02:12 08/15/19 03:02 Labs: Abnormal Lab Results - Last 24 Hours (Table) 08/14/19 08/14/19 08/14/19 Range/Units 17:13 17:24 20:49 WBC (3.8-10.6) k/uL RBC (3.80-5.40) m/uL Hgb (11.4-16.0) gm/dL Hct (34.0-46.0) % MCV (80.0-100.0) fL RDW (11.5-15.5) % Plt Count (150-450) k/uL Neutrophils # (Manual) (1.3-7.7) k/uL Lymphocytes # (Manual) (1.0-4.8) k/uL Monocytes # (Manual) (0-1.0) k/uL Potassium 5.9 H (3.5-5.1) mmol/L Chloride (98-107) mmol/L BUN (7-17) mg/dL Creatinine (0.52-1.04) mg/dL POC Glucose (mg/dL) 130 H 171 H (75-99) mg/dL Plasma Lactic Acid Carlos (0.7-2.0) mmol/L Calcium (8.4-10.2) mg/dL Phosphorus (2.5-4.5) mg/dL Urine Appearance (Clear) Urine Protein (Negative) Urine Blood (Negative) Ur Leukocyte Esterase (Negative) Urine RBC (0-5) /hpf Urine WBC (0-5) /hpf Urine WBC Clumps (None) /hpf Urine Bacteria (None) /hpf Urine Yeast (Budding) (None) /hpf 08/15/19 08/15/19 08/15/19 Range/Units 02:12 03:02 05:33 WBC 12.0 H (3.8-10.6) k/uL RBC 3.21 L (3.80-5.40) m/uL Hgb 10.8 L (11.4-16.0) gm/dL Hct 33.8 L (34.0-46.0) % MCV 105.1 H (80.0-100.0) fL RDW 17.4 H (11.5-15.5) % Plt Count 122 L (150-450) k/uL Neutrophils # (Manual) 9.24 H (1.3-7.7) k/uL Lymphocytes # (Manual) 0.72 L (1.0-4.8) k/uL Monocytes # (Manual) 2.04 H (0-1.0) k/uL Potassium 6.0 H (3.5-5.1) mmol/L Chloride 94 L (98-107) mmol/L BUN 54 H (7-17) mg/dL Creatinine 4.18 H (0.52-1.04) mg/dL POC Glucose (mg/dL) (75-99) mg/dL Plasma Lactic Acid Carlos 7.0 H* (0.7-2.0) mmol/L Calcium 8.1 L (8.4-10.2) mg/dL Phosphorus 6.0 H (2.5-4.5) mg/dL Urine Appearance (Clear) Urine Protein (Negative) Urine Blood (Negative) Ur Leukocyte Esterase (Negative) Urine RBC (0-5) /hpf Urine WBC (0-5) /hpf Urine WBC Clumps (None) /hpf Urine Bacteria (None) /hpf Urine Yeast (Budding) (None) /hpf 08/15/19 08/15/19 08/15/19 Range/Units 08:45 09:39 12:03 WBC (3.8-10.6) k/uL RBC (3.80-5.40) m/uL Hgb (11.4-16.0) gm/dL Hct (34.0-46.0) % MCV (80.0-100.0) fL RDW (11.5-15.5) % Plt Count (150-450) k/uL Neutrophils # (Manual) (1.3-7.7) k/uL Lymphocytes # (Manual) (1.0-4.8) k/uL Monocytes # (Manual) (0-1.0) k/uL Potassium (3.5-5.1) mmol/L Chloride (98-107) mmol/L BUN (7-17) mg/dL Creatinine (0.52-1.04) mg/dL POC Glucose (mg/dL) 180 H (75-99) mg/dL Plasma Lactic Acid Carlos 5.6 H* (0.7-2.0) mmol/L Calcium (8.4-10.2) mg/dL Phosphorus (2.5-4.5) mg/dL Urine Appearance Turbid H (Clear) Urine Protein 2+ H (Negative) Urine Blood Moderate H (Negative) Ur Leukocyte Esterase Large H (Negative) Urine RBC 164 H (0-5) /hpf Urine WBC >182 H (0-5) /hpf Urine WBC Clumps Many H (None) /hpf Urine Bacteria Many H (None) /hpf Urine Yeast (Budding) Many H (None) /hpf
[2019-08-15 16:47] VITALS: BP 68/50; PULSE 91; TEMP 98.3
--- NOTE | 2019-08-16 09:28 | P.PN ---
Subjective Progress Note Date: 08/15/19 79-year-old female was admitted secondary to heart failure exacerbation patient was diuresed and patient had significant urine output initially and now have urine output significantly dropped and the patient has worsening creatinine went up from 2-4. Patient still has pulmonary edema. Patient is on dobutamine with a dose of which is being increased to 10 mg/h. Her overall prognosis is extremely poor and had a lengthy discussion with the family regarding overall goals of care it appears the patient functionality was fairly good before this hospitalization. Patient barely has any urine output. The 2 options including transfer to a higher level facility for possible assessment of LVAD although ca rdiology evaluated the patient discussed at length with cardiology patient probably is not a candidate for that and hospice was discussed with the family as well. Family is leaning towards hospice. Patient remains hypotensive. Discussed hospice with family bedside along with the patient. Patient looks severely lethargic with dry mucous membranes. Review of systems: Unable to obtain as patient is severely lethargic and barely able to answer any questions has dry mucous membranes All inpatient medications were reviewed and appropriate changes in these medications as dictated in the interval history and assessment and plan. Objective - Vital Signs Vital signs: Vital Signs Temp 98.3 F 08/15/19 15:45 Pulse 91 08/15/19 15:45 Resp 18 08/15/19 16:00 BP 68/50 08/15/19 15:45 Pulse Ox 96 08/15/19 15:45 Intake & Output 08/15/19 08/16/19 08/16/19 18:59 06:59 18:59 Intake Total 240 Output Total 105 Balance 135 Intake: Intake, IV Titration 40 Amount Sodium Chloride 0.9% 1, 40 000 ml @ 50 mls/hr IV . Q20H [facility] Rx#:[id number] Oral 200 Output: Urine 105 Uretheral (Tinsley) 105 Other: Voiding Method Indwelling Catheter - Exam PHYSICAL EXAMINATION: GENERAL: Lethargic does open eyes does understand but unable to provide any history HEENT: Pupils are round and equally reacting to light. EOMI. No scleral icterus. No conjunctival pallor. Normocephalic, atraumatic. No pharyngeal erythema. No thyromegaly. CARDIOVASCULAR: S1 and S2 present. No murmurs, rubs, or gallops. PULMONARY: Have bibasilar crackles have Gastrointestinal: Abdomen not distended MUSCULOSKELETAL: No joint swelling or deformity. EXTREMITIES: No cyanosis, clubbing, or pedal edema. NEUROLOGICAL: Unable to assess. SKIN: No rashes. - Labs CBC & Chem 7: 08/15/19 02:12 08/15/19 03:02 Labs: Abnormal Lab Results - Last 24 Hours (Table) 08/15/19 08/15/19 08/15/19 Range/Units 09:39 12:03 13:20 POC Glucose (mg/dL) 180 H (75-99) mg/dL Plasma Lactic Acid Carlos 5.6 H* 4.9 H* (0.7-2.0) mmol/L Microbiology - Last 24 Hours (Table) 08/15/19 05:33 Blood Culture - Preliminary Blood No Growth after 24 hours 08/15/19 08:45 Urine Culture - Preliminary Urine,Catheterized Assessment and Plan Plan: acute on chronic systolic heart failure, ejection fraction 30-35% patient has heart failure exacerbation patient is not doing well patient is on dobutamine drip with worsening creatinine very minimal urine output prognosis 60 minute for further discussion regarding hospice versus treatment and a higher level facility was discussed with the family. Family and patient are leaning towards hospice hospice was consulted severe mitral and tricuspid regurgitation severe pulmonary hypertension Nonischemic cardiomyopathy chronically elevated troponin acute on chronic kidney disease,stage III,Baseline creatinine around 1.6.,worsening secondary to ATN related to diuresing, hypotension patient's creatinine worsened to around 4 which appears to be secondary to diuretic therapy and cardiorenal syndrome Diabetes mellitus hyponatremia secondary to congestive heart failure that improved hypotension: Secondary to congestive heart failure as well as excessive diuretic therapy Hypertension,history of Hyperlipidemia seizure disorder sleep apnea on CPAP/BiPAP Hypothyroidism Bipolar disorder COPD/asthma metabolic acidosis secondary to acute renal failure hyperparathyroidism, primary. No Code
--- NOTE | 2019-08-16 09:30 | P.DS ---
Providers Date of admission: 08/08/19 18:25 Expected date of discharge: 08/15/19 Attending physician: Maurizio Allen Consults: 08/08/19 18:26 Consult Physician Urgent Consulting Provider: [facility] Consult Reason/Comments: AECHF Do you want consulting provider notified?: Yes 08/10/19 12:15 Consult Physician Urgent Consulting Provider: Mariely Scott Consult Reason/Comments: elevated bun a creat Do you want consulting provider notified?: Yes Primary care physician: Maurizio Allen Hospital Course: Her prognosis is extremely poor hospice was discussed with the family and family decided on hospice. Patient will be discharged to inpatient hospice. For rest of the details of hospitalization and her medical problems please refer to my dictation of progress note from the same day Patient Condition at Discharge: Stable Plan - Discharge Summary Discharge Rx Participant: No New Discharge Prescriptions: No Action Aspirin 81 mg PO DAILY lamoTRIgine 200 mg PO HS Ziprasidone [Geodon] 40 mg PO BID Sertraline [Zoloft] 100 mg PO BID Levothyroxine Sodium [Levoxyl] 50 mcg PO DAILY Magnesium Oxide [Mag-Ox] 400 mg PO DAILY Albuterol Inhaler [Ventolin Hfa Inhaler] 2 puff INHALATION RT-QID PRN PRN Reason: Shortness Of Breath Potassium Chloride 10 meq PO BID LORazepam [Ativan] 0.5 mg PO HS Furosemide [Lasix] 40 mg PO BID Ferrous Sulfate [Feosol] 325 mg PO DAILY Cinacalcet [Sensipar] 30 mg PO DAILY Allopurinol [Zyloprim] 100 mg PO DAILY L.acidoph,Paracasei, B.lactis [Probiotic] 1 tab PO DAILY Budesonide [Pulmicort] 0.5 mg INHALATION RT-BID Discharge Medication List Aspirin 81 mg PO DAILY 05/12/15 [History] Levothyroxine Sodium [Levoxyl] 50 mcg PO DAILY 05/12/15 [History] Sertraline [Zoloft] 100 mg PO BID 05/12/15 [History] Ziprasidone [Geodon] 40 mg PO BID 05/12/15 [History] lamoTRIgine 200 mg PO HS 05/12/15 [History] Magnesium Oxide [Mag-Ox] 400 mg PO DAILY 01/17/17 [History] Albuterol Inhaler [Ventolin Hfa Inhaler] 2 puff INHALATION RT-QID PRN 01/22/18 [History] Allopurinol [Zyloprim] 100 mg PO DAILY 08/08/19 [History] Cinacalcet [Sensipar] 30 mg PO DAILY 08/08/19 [History] Ferrous Sulfate [Feosol] 325 mg PO DAILY 08/08/19 [History] Furosemide [Lasix] 40 mg PO BID 08/08/19 [History] L.acidoph,Paracasei, B.lactis [Probiotic] 1 tab PO DAILY 08/08/19 [History] LORazepam [Ativan] 0.5 mg PO HS 08/08/19 [History] Potassium Chloride 10 meq PO BID 08/08/19 [History] Budesonide [Pulmicort] 0.5 mg INHALATION RT-BID 08/15/19 [History] Follow up Appointment(s)/Referral(s): Maurizio Allen DO [Primary Care Provider] - 1-2 days Discharge Disposition: DC/[facility] IP HOSP W/[facility] IP READ
== END 2019-08-15 17:22 | disposition hospice, inpatient (51) | DRG 291 ==
LOC: EC 15:57 → 3SCARD 18:25
PROVIDERS: ADMIT Family Medicine; ATTEND Family Medicine
DX: I13.0 Hypertensive heart and chronic kidney disease with heart failure and stage 1 through stage 4 chronic kidney disease, or unspecified chronic kidney disease (principal); I50.43 Acute on chronic combined systolic (congestive) and diastolic (congestive) heart failure; N17.0 Acute kidney failure with tubular necrosis; E87.1 Hypo-osmolality and hyponatremia; E87.4 Mixed disorder of acid-base balance; J44.1 Chronic obstructive pulmonary disease with (acute) exacerbation; D72.829 Elevated white blood cell count, unspecified; E03.9 Hypothyroidism, unspecified; E11.22 Type 2 diabetes mellitus with diabetic chronic kidney disease; E78.5 Hyperlipidemia, unspecified; E83.42 Hypomagnesemia; E87.5 Hyperkalemia; E87.6 Hypokalemia; F31.9 Bipolar disorder, unspecified; G40.909 Epilepsy, unspecified, not intractable, without status epilepticus; G47.30 Sleep apnea, unspecified; I08.1 Rheumatic disorders of both mitral and tricuspid valves; I27.20 Pulmonary hypertension, unspecified; I42.8 Other cardiomyopathies; Z51.5 Encounter for palliative care; I44.7 Left bundle-branch block, unspecified; N18.3 Chronic kidney disease, stage 3 (moderate); T50.2X5A Adverse effect of carbonic-anhydrase inhibitors, benzothiadiazides and other diuretics, initial encounter; Z79.82 Long term (current) use of aspirin; Z79.890 Hormone replacement therapy; Z79.899 Other long term (current) drug therapy; Z80.1 Family history of malignant neoplasm of trachea, bronchus and lung; Z82.49 Family history of ischemic heart disease and other diseases of the circulatory system; Z86.14 Personal history of Methicillin resistant Staphylococcus aureus infection; Z87.891 Personal history of nicotine dependence; Z99.89 Dependence on other enabling machines and devices
CPT/HCPCS: 36415; 71045; 71046; 80048; 80053; 81001; 82533; 83036; 83605; 83735; 83880; 84100; 84132; 84443; 84484; 85025; 85610; 85730; 87040; 87077; 87086; 87186; 87502; 93005; 93306; 94640; 94760; 96365; 96375; 99285

== ENCOUNTER 2019-08-15 15:48 | Inpatient (IN) | payer MEDICAID ==
[2019-08-15] MEDS ORDERED: GLYCOPYRROLATE 0.2 MG/ML 2 ML VIAL IVP PRN (15:52)
[2019-08-15] MEDS ORDERED: ACETAMINOPHEN SUPPOSITORY 650 MG SUPP RECTAL PRN (15:52)
[2019-08-15] MEDS ORDERED: HYDROmorphone 0.5 MG/0.5 ML SYRINGE IVP PRN (15:52)
[2019-08-15] MEDS ORDERED: ATROPINE OPHTH SOLN 1% 5ML BTL SUBLINGUAL PRN (15:52)
[2019-08-15] MEDS ORDERED: ONDANSETRON 4 MG/2 ML VIAL IVP PRN (15:52)
[2019-08-15] MEDS ORDERED: SCOPOLAMINE 1.5MG/72HR PATCH TRANSDERM SCH (17:00)
[2019-08-15] MEDS: LORazepam 2 MG/ML INJ IV PRN (19:40)
[2019-08-16] MEDS ORDERED: MORPHINE SULFATE 4 MG/ML SYRINGE IVP PRN (10:19)
--- NOTE | 2019-08-16 11:34 | P.HPIM ---
History of Present Illness Patient admitted with heart failure despite aggressive treatment patient overall clinical condition worsened leading to cardiac renal syndrome and renal failure patient is on high-dose of dobutamine after which I discussed hospice and comfort care with the family and patient was subsequently made hospice and patient is presently general inpatient hospice. Patient had increased respiratory rate appears to be in respiratory discomfort will add morphine every 1 hour 4 mg for respiratory comfort as well as pain. Review of Systems Irrelevant at this time Past Medical History Past Medical History: Asthma, Chest Pain / Angina, Heart Failure, COPD, Diabetes Mellitus, Hyperlipidemia, Hypertension, Renal Disease, Seizure Disorder, Sleep Apnea/CPAP/BIPAP, Thyroid Disorder Additional Past Medical History / Comment(s): Bipolar, colitis, asthma when younger, seizure disorder-last known seizure 1986. Anemia History of Any Multi-Drug Resistant Organisms: MRSA Date of last positivie culture/infection: 2007 MDRO Source:: abdomen Past Surgical History: Appendectomy, Bowel Resection, Cholecystectomy, Hernia Repair, Tonsillectomy, Tubal Ligation Additional Past Surgical History / Comment(s): salvador cataracts,abd hernia sx w/ mesh-2nd sx to removed mesh and had mrsa after 2nd sx in 2007, bowel sx d/t obstruction, Past Anesthesia/Blood Transfusion Reactions: Motion Sickness Additional Past Anesthesia/Blood Transfusion Reaction / Comment(s): past blood transfusion- no reaction Past Psychological History: Bipolar Smoking Status: Former smoker Past Alcohol Use History: None Reported Past Drug Use History: None Reported - Past Family History Father Family Medical History: Cancer Additional Family Medical History / Comment(s): lung cancer. all 11 siblings of father had some sort of cancer Mother Family Medical History: Congestive Heart Failure (CHF) Additional Family Medical History / Comment(s): aunts had bipolar depression Medications and Allergies Home Medications Medication Instructions Recorded Confirmed Type Aspirin 81 mg PO DAILY 05/12/15 08/15/19 History Levothyroxine Sodium [Levoxyl] 50 mcg PO DAILY 05/12/15 08/15/19 History Sertraline [Zoloft] 100 mg PO BID 05/12/15 08/15/19 History Ziprasidone [Geodon] 40 mg PO BID 05/12/15 08/15/19 History lamoTRIgine 200 mg PO HS 05/12/15 08/15/19 History Magnesium Oxide [Mag-Ox] 400 mg PO DAILY 01/17/17 08/15/19 History Albuterol Inhaler [Ventolin Hfa 2 puff INHALATION RT-QID PRN 01/22/18 08/15/19 History Inhaler] Allopurinol [Zyloprim] 100 mg PO DAILY 08/08/19 08/15/19 History Cinacalcet [Sensipar] 30 mg PO DAILY 08/08/19 08/15/19 History Ferrous Sulfate [Feosol] 325 mg PO DAILY 08/08/19 08/15/19 History Furosemide [Lasix] 40 mg PO BID 08/08/19 08/15/19 History L.acidoph,Paracasei, B.lactis 1 tab PO DAILY 08/08/19 08/15/19 History [Probiotic] LORazepam [Ativan] 0.5 mg PO HS 08/08/19 08/15/19 History Potassium Chloride 10 meq PO BID 08/08/19 08/15/19 History Budesonide [Pulmicort] 0.5 mg INHALATION RT-BID 08/15/19 08/15/19 History Allergies Allergy/AdvReac Type Severity Reaction Status Date / Time codeine Allergy Anaphylaxis Verified 08/15/19 18:24 Iodinated Contrast Media Allergy Chest Pain Verified 08/15/19 18:24 [Iodinated Contrast Media - Oral and] Iodine and Iodide Containing Allergy Anaphylaxis Verified 08/15/19 18:24 Produc Physical Exam Vitals: Vital Signs Pulse Resp BP BP Pulse Ox 08/16/19 11:22 55 L 99 08/16/19 08:00 65 22 90/50 97 08/16/19 04:00 60 24 08/16/19 00:00 53 L 24 65/49 96 08/15/19 20:00 48 L 24 70/37 95 Intake and Output 08/15/19 08/16/19 08/16/19 22:59 06:59 14:59 Output Total 70 30 Balance -70 -30 Output: Urine 70 30 Other: Voiding Method Indwelling Catheter Indwelling Catheter Weight 64 kg 65 kg PHYSICAL EXAMINATION: GENERAL: Patient is in respiratory distress. CARDIOVASCULAR: Tachycardic PULMONARY: Rhonchi and gurgling sounds ABDOMEN: Soft, nondistended, MUSCULOSKELETAL: No joint swelling or deformity. EXTREMITIES: No cyanosis, clubbing, or pedal edema. NEUROLOGICAL: Unable to assess SKIN: No rashes. Assessment and Plan Plan: Congestive heart failure chronic systolic dysfunction with acute exacerbation -Possible cardiorenal syndrome -Patient is presently hospice comfort care patient will be continued on atropine hydromorphone lorazepam morphine and scopolamine, for comfort, pain and secretions. Further hospitalization course and other medical problems that were addressed please refer to my progress note from yesterday.
[2019-08-16 21:58] VITALS: BP 67/35; PULSE 38; RESP 20
[2019-08-16] MEDS: LORazepam 2 MG/ML INJ IV PRN (23:39)
--- NOTE | 2019-08-18 09:26 | P.DS ---
Providers Date of admission: 08/15/19 17:38 Expected date of discharge: 08/16/19 Attending physician: Eloy Vila Primary care physician: [facility]iz[facility] Course: Patient is admitted to inpatient hospice subsequently on 16 August. Please refer to nursing documentation for time of . preliminary cause of congestive heart failure Plan - Discharge Summary New Discharge Prescriptions: No Action Aspirin 81 mg PO DAILY lamoTRIgine 200 mg PO HS Ziprasidone [Geodon] 40 mg PO BID Sertraline [Zoloft] 100 mg PO BID Levothyroxine Sodium [Levoxyl] 50 mcg PO DAILY Magnesium Oxide [Mag-Ox] 400 mg PO DAILY Albuterol Inhaler [Ventolin Hfa Inhaler] 2 puff INHALATION RT-QID PRN PRN Reason: Shortness Of Breath Potassium Chloride 10 meq PO BID LORazepam [Ativan] 0.5 mg PO HS Furosemide [Lasix] 40 mg PO BID Ferrous Sulfate [Feosol] 325 mg PO DAILY Cinacalcet [Sensipar] 30 mg PO DAILY Allopurinol [Zyloprim] 100 mg PO DAILY L.acidoph,Paracasei, B.lactis [Probiotic] 1 tab PO DAILY Budesonide [Pulmicort] 0.5 mg INHALATION RT-BID Discharge Medication List Aspirin 81 mg PO DAILY 05/12/15 [History] Levothyroxine Sodium [Levoxyl] 50 mcg PO DAILY 05/12/15 [History] Sertraline [Zoloft] 100 mg PO BID 05/12/15 [History] Ziprasidone [Geodon] 40 mg PO BID 05/12/15 [History] lamoTRIgine 200 mg PO HS 05/12/15 [History] Magnesium Oxide [Mag-Ox] 400 mg PO DAILY 01/17/17 [History] Albuterol Inhaler [Ventolin Hfa Inhaler] 2 puff INHALATION RT-QID PRN 01/22/18 [History] Allopurinol [Zyloprim] 100 mg PO DAILY 08/08/19 [History] Cinacalcet [Sensipar] 30 mg PO DAILY 08/08/19 [History] Ferrous Sulfate [Feosol] 325 mg PO DAILY 08/08/19 [History] Furosemide [Lasix] 40 mg PO BID 08/08/19 [History] L.acidoph,Paracasei, B.lactis [Probiotic] 1 tab PO DAILY 08/08/19 [History] LORazepam [Ativan] 0.5 mg PO HS 08/08/19 [History] Potassium Chloride 10 meq PO BID 08/08/19 [History] Budesonide [Pulmicort] 0.5 mg INHALATION RT-BID 08/15/19 [History] Discharge Disposition: - Preliminary Cause of Preliminary Cause of : Systolic heart failure
== END 2019-08-16 23:58 | disposition expired | DRG 951 ==
LOC: 3SCARD 17:38
PROVIDERS: ADMIT Hospitalist; ATTEND Hospitalist
DX: Z51.5 Encounter for palliative care (principal); I50.22 Chronic systolic (congestive) heart failure; E11.9 Type 2 diabetes mellitus without complications; E78.5 Hyperlipidemia, unspecified; G40.909 Epilepsy, unspecified, not intractable, without status epilepticus; I11.0 Hypertensive heart disease with heart failure; J44.9 Chronic obstructive pulmonary disease, unspecified; Z79.82 Long term (current) use of aspirin; Z79.890 Hormone replacement therapy; Z79.899 Other long term (current) drug therapy; Z80.1 Family history of malignant neoplasm of trachea, bronchus and lung; Z82.49 Family history of ischemic heart disease and other diseases of the circulatory system; Z86.14 Personal history of Methicillin resistant Staphylococcus aureus infection; Z87.891 Personal history of nicotine dependence; Z90.49 Acquired absence of other specified parts of digestive tract; Z88.5 Allergy status to narcotic agent; Z91.041 Radiographic dye allergy status